=== PATIENT | male | born 1955 | race Caucasian/White ===

== ENCOUNTER 2019-01-11 16:45 | Inpatient (IN) | payer OTHER ==
[~2019-01-11] VITALS: Ht 172.7 cm; Wt 86.8 kg
--- NOTE | 2019-01-11 18:08 | ERD ---
ER Documentation Chief Complaint Chief Complaint left foot 4th, 5th toe diabetic ulcers/gangrene for admission ROS All systems reviewed and are negative except as per history of present illness. Medications Home Meds Unable to Obtain Active Prescriptions or Reported Meds Allergies Allergies: Coded Allergies: No Known Allergy (Unverified , 07/21/14) PMhx/Soc History of Surgery: No Hx Neurological Disorder: No Hx Respiratory Disorders: No Hx Cardiac Disorders: Yes (htn, DM) Hx Alcohol Use: Yes (daily) Hx Substance Use: No Hx Tobacco Use: No Physical Exam Vitals Vital Signs Date Temp Pulse Resp B/P (MAP) Pulse Ox O2 O2 Flow FiO2 Time Delivery Rate 01/11/19 99.0 87 18 141/64 99 16:50 (89) Physical Exam Const: No acute distress Head: Atraumatic Eyes: Normal Conjunctiva ENT: Normal External Ears, Nose and Mouth. Neck: Full range of motion. No meningismus. Resp: Clear to auscultation bilaterally Cardio: Regular rate and rhythm, no murmurs Abd: Soft, non tender, non distended. Normal bowel sounds Skin: No petechiae or rashes Back: No midline or flank tenderness Ext: No cyanosis, or edema Neur: Awake and alert Psych: Normal Mood and Affect YAZMIN CHAPARRO MD January 11, 2019 18:08
[2019-01-11] MEDS ORDERED: ACETAMINOPHEN 325 MG TAB PO PRN (18:30)
[2019-01-11] MEDS ORDERED: morphine 10 MG INJ IV ONE (18:30)
[2019-01-11] MEDS ORDERED: ONDANSETRON 4 MG INJ IV PRN ×3 (18:30→20:30)
[2019-01-11] MEDS ORDERED: DEXTROSE 5%-0.45% NACL 1,000 ML IV SCH (19:00)
[2019-01-11] MEDS ORDERED: ZOLPIDEM 5 MG TAB PO PRN (19:00)
--- NOTE | 2019-01-11 19:53 | ERD ---
ER Documentation Chief Complaint Chief Complaint left foot 4th, 5th toe diabetic ulcers/gangrene for admission HPI 63-year-old male with a history of peripheral arterial disease, diabetes, hypertension sent by his vascular surgeon, Dr. Gordon for admission. Patient recently had an outpatient balloon angioplasty of 1 of the arteries in his left lower extremity as he was developing gangrene in his fourth toe. He was placed on blood thinners and discharged to a nursing home facility. However the patient's symptoms have been worsening and now the lateral aspect of his foot and pinky toe are having discoloration. He is having severe uncontrolled pain despite pain medications. Currently he complains of 9 out of 10 throbbing and burning pain in his foot. No associated fevers or chills. He does have tingling in his feet but denies any weakness. He saw Dr. Gordon in the office today. He was examined and told that his angioplasty likely failed and he would need bypass surgery, per the patient's family. Of note, the patient also complains of right eye burning pain for the past few days and was told at the snf that he would be evaluated by ophthalmology. He is complaining of some blurry vision as well. No trauma to the eye. ROS All systems reviewed and are negative except as per history of present illness. Medications Home Meds Unable to Obtain Active Prescriptions or Reported Meds Allergies Allergies: Coded Allergies: No Known Allergy (Unverified , 07/21/14) PMhx/Soc History of Surgery: Yes (Left lower extremity balloon angioplasty) Anesthesia Reaction: No Hx Neurological Disorder: No Hx Respiratory Disorders: No Hx Cardiac Disorders: Yes (htn, peripheral arterial disease, CHF) Hx Psychiatric Problems: No Hx Miscellaneous Medical Probl: Yes (Diabetes) Hx Alcohol Use: Yes (daily) Hx Substance Use: No Hx Tobacco Use: No Smoking Status: Never smoker FmHx Family History: No diabetes Physical Exam Vitals Vital Signs Date Temp Pulse Resp B/P (MAP) Pulse Ox O2 O2 Flow FiO2 Time Delivery Rate 01/11/19 99.0 87 18 141/64 99 16:50 (89) Physical Exam Const: No acute distress Head: Atraumatic Eyes: PERRLA. EOMI. Right-sided conjunctival injection. Anterior chamber clear without hypopyon or hyphema. Limited funduscopic exam without any sign ificant abnormalities. No photophobia bilaterally. Visual marie intact bilaterally. ENT: Normal External Ears, Nose and Mouth. Neck: Full range of motion. No meningismus. Resp: Clear to auscultation bilaterally Cardio: Regular rate and rhythm, no murmurs. 2+ radial pulses bilaterally. Unable to palpate DP and PT pulses in the left lower extremity. 1+ DP and PT pulses in the right lower extremity. Abd: Soft, non tender, non distended. Normal bowel sounds Skin: No petechiae or rashes Back: No midline or flank tenderness Ext: No cyanosis. full range of motion at all joints of the lower extremities. Mild swelling, erythema, and discoloration over the lateral aspect of the left foot with gangrene of the fourth toe and discoloration of the fifth toe. Tender and warm to palpation. No ulcers noted. Right foot normal to inspection and palpation. Normal plantar and dorsiflexion bilaterally. Neur: Awake and alert Psych: Normal Mood and Affect Result Diagram: 01/12/1970201/12/19702 Results 24 hrs Current Medications Medications Dose Sig/Pradeep Start Time Status Last (Trade) Ordered Route PRN Stop Time Admin Dose Reason Admin Ondansetron 4 mg BRIDGE ORDER 01/11/19 HCl (Zofran PRN IV 18:30 Inj) NAUSEA/VOMITI 01/12/19 18:29 NG 650 mg ER BRIDGE 01/11/19 01/11/19 Acetaminophen PRN PO 18:30 21:20 (Tylenol .MILD PAIN 01/12/19 18:29 Tab) 1-3 OR TEMP Morphine 6 mg ONCE ONCE 01/11/19 DC 01/11/19 Sulfate IV 18:30 18:40 (morphine) 01/11/19 18:31 Procedures/MDM EMERGENT LABS AND DIAGNOSTIC STUDIES: Lab Results above were reviewed and interpreted by me. CBC: Mild anemia. Thrombocytosis, consistent with acute inflammatory process CMP: Hyperglycemic without evidence of acidosis. No evidence of clinically significant electrolyte abnormality, acidosis, renal failure, liver disease, or biliary obstruction 12-lead EKG was interpreted by Mary Arizmendi MD: Normal Sinus Rhythm with ventricular rate of 90 beats per minute Normal axis Normal intervals No acute ST or T wave changes suggestive of acute ischemia or STEMI. Radiology Results as interpreted by Radiology below were reviewed by Jayda Arizmendi MD: Chest x-ray shows no acute abnormality Initial Nursing notes reviewed. Previous Medical Records requested via the Electronic Health Record. EMERGENCY DEPARTMENT COURSE / MEDICAL DECISION MAKING: Patient is presenting with a left foot gangrene that is worsening. He is afebrile and hemodynamically stable. No evidence of acute limb ischemia. Patient will require admission for likely bypass surgery per his vascular surgeon. At this time there are no signs of sepsis. Accepting Care Team: Current data and ongoing care discussed. Time: Time of admission Primary Provider: Dr. Curtis Consulting: Dr. Hagan Outstanding Data: none Departure Diagnosis: Primary Impression: Gangrene of toe of left foot Additional Impression: Conjunctivitis, right eye Conjunctivitis type: acute Acute conjunctivitis type: unspecified Demond lified Codes: H10.31 - Unspecified acute conjunctivitis, right eye Condition: Serious MAXIMILIANO ARIZMENDI MD January 11, 2019 19:53
[2019-01-11] MEDS ORDERED: NACL 0.9% 3 ML SYG IV SCH (20:30)
[2019-01-11] MEDS ORDERED: DOCUSATE SODIUM 100 MG CAP PO PRN (20:30)
[2019-01-11] MEDS ORDERED: BISACODYL (EC) 5 MG TAB PO PRN (20:30)
[2019-01-11] MEDS ORDERED: HYDROmorphONE 0.5 MG/0.5 ML SYG IV PRN (20:30)
--- NOTE | 2019-01-11 20:54 | HP ---
Date/Time of Note Date/Time of Note DATE: 01/11/19 TIME: 20:54 Assessment/Plan VTE Prophylaxis SCD applied (from Nsg): Yes Pharmacological prophylaxis: heparin Lines/Catheters IV Catheter Type (from Nrsg): Mid Line Assessment/Plan Hospital Course This is a 63-year-old male who was admitted recently to the MedSurg floor who is now being transferred to the telemetry floor: #1 rapid A. fib with RVR: New onset. Patient denies a history of previous A. fib. Patient responded to Cardizem 10 mg IV. We will continue to monitor closely on telemetry. Magnesium 2 mg IV x1. Patient may need additional Cardizem boluses. Anticoagulation with heparin GTT. Will obtain an echocardiogram. TSH, electro lites in the a.m. Will consult cardiology #2 left fourth and fifth digit necrosis/gangrene: Failed balloon angioplasty. Will obtain x-rays of the left foot. Venous mapping has been ordered by Dr. Gordon, will obtain a left lower extremity arterial Doppler. Patient is scheduled tentatively for surgery on . Will obtain cardiac clearance. Obviously will need to control patient's A. fib prior to then. #3 peripheral arterial disease: We will need to confirm patient's home medications #4 diabetes mellitus: We will check hemoglobin A1c, insulin sliding scale, confirm patient's home meds #5 hypertension: Again we will need to confirm patient's home medications, #6 hyperlipidemia: Check lipid panel, confirm patient's home meds #7 normocytic anemia: We will check iron stores #8 Systolic versus diastolic CHF: Patient currently does not appear to be in exacerbation. He does though have some facial edema on chest x-ray but he is had not having any respiratory distress. We will give him a dose of Lasix. Will check an echocardiogram. Consult cardiology. #9 DVT GI prophylaxis: Heparin GTT, no GI prophylaxis indicated Further treatment strategy will be implemented as per the clinical course. Result Diagram: 01/11/19 1840 01/11/19 1840 Results 24hrs Laboratory Tests Test 01/11/19 18:40 White Blood Count 11.7 H Red Blood Count 4.69 L Hemoglobin 11.6 L Hematocrit 37.8 L Mean Corpuscular Volume 80.6 L Mean Corpuscular Hemoglobin 24.7 L Mean Corpuscular Hemoglobin Concent 30.7 L Red Cell Distribution Width 14.4 Platelet Count 477 H Mean Platelet Volume 9.0 Immature Granulocytes % 0.300 Neutrophils % 61.2 Lymphocytes % 24.7 Monocytes % 10.2 Eosinophils % 2.9 Basophils % 0.7 Nucleated Red Blood Cells % 0.0 Immature Granulocytes # 0.030 Neutrophils # 7.2 Lymphocytes # 2.9 Monocytes # 1.2 H Eosinophils # 0.3 Basophils # 0.1 Nucleated Red Blood Cells # 0.0 Prothrombin Time 15.0 H Prothrombin Time Ratio 1.2 INR International Normalized Ratio 1.17 Activated Partial Thromboplast Time 34.8 Sodium Level 140 Potassium Level 4.1 Chloride Level 99 Carbon Dioxide Level 29 Anion Gap 12 Blood Urea Nitrogen 18 Creatinine 0.86 Est Glomerular Filtrat Rate mL/min > 60 Glucose Level 152 Calcium Level 9.8 Total Bilirubin 0.4 Direct Bilirubin 0.00 Indirect Bilirubin 0.4 Aspartate Amino Transf (AST/SGOT) 31 Alanine Aminotransferase (ALT/SGPT) 29 Alkaline Phosphatase 132 H Total Protein 8.2 H Albumin 4.2 Globulin 4.00 H Albumin/Globulin Ratio 1.05 HPI/ROS Admit Date/Time Admit Date/Time Hx of Present Illness Chief complaint: Left fourth and fifth digit pain This is a 63-year-old male with a past medical history of diabetes mellitus, hypertension, hyperlipidemia, peripheral arterial disease, CHF who presented today with worsening left fourth digit and fifth digit pain and discoloration. Patient was seen by Dr. Gordon vascular surgery and was advised to come into the emergency department. Patient has a history of having a balloon angioplasty done which failed. He was advised to come in so that he could be scheduled for a bypass on . Patient does have dry gangrene of the left fourth digit. Upon my examination of the patient at the bedside he was noted to be in rapid A. fib with RVR with rates in the 150s. EKG was performed additional rapid A. fib with RVR at a rate of approximately 136. Patient at that time was complaining of severe pain in his toe. He was given Dilaudid 1 mg IV which did result in relief of his pain however he remained in A. fib. He was given 5 mg of Lopressor IV x2 without any response. Patient was subsequently transferred to telemetry where he did receive 10 mg of IV Cardizem which did result in improvement in the heart rate to less than 110. Allergies: NKDA Medications: See OCT ROS Const: As per HPI Eyes : No pain discharge or redness or change in visual acuity ENT: No pain, sore throat, congestion, congestion, dysphagia or discharge Respiratory: No shortness of breath, cough, sputum, wheezing, or pleuritic pain Cardiovascular: No chest pain, palpitation, PND, or edema GI : no change in appetite, abdominal pain, nausea, vomiting, diarrhea, constipation, or change in the color his stool Genitourinary: No dysuria, hematuria, flank pain , discharge or CVA tenderness Musculoskeletal: As per HPI Skin: No rash, bruising or hives Neuro: No headache, dizziness, syncope, seizure, focal weakness Endocrine: No polyuria, polydipsia, temperature intolerance Psych: No hallucination, depression, anxiety or suicidal ideation PMH/Family/Social Past Medical History Peripheral arterial disease, diabetes mellitus, hypertension, hyperlipidemia, CHF Medications Current Medications Ondansetron HCl (Zofran Inj) 4 mg BRIDGE ORDER PRN IV NAUSEA/VOMITING; Start 01/11/19 at 18:30; Stop 01/12/19 at 18:29 Acetaminophen (Tylenol Tab) 650 mg ER BRIDGE PRN PO .MILD PAIN 1-3 OR TEMP; Start 01/11/19 at 18:30; Stop 01/12/19 at 18:29 Morphine Sulfate (morphine) 4 mg Q3 PRN IV severe pain; Start 01/11/19 at 19:00 Ondansetron HCl (Zofran Inj) 4 mg Q4 PRN IV nausea; Start 01/11/19 at 19:00 Zolpidem Tartrate (Ambien) 5 mg HS MAY REPEAT X 1 PRN PO INSOMNIA; Start 01/11/19 at 19:00 IV Flush (NS 3 ml) 3 ml PER PROTOCOL IV ; Start 01/11/19 at 20:30 Ondansetron HCl (Zofran Inj) 4 mg Q6H PRN IV NAUSEA/VOMITING; Start 01/11/19 at 20:30 Acetaminophen (Tylenol Tab) 650 mg Q6H PRN PO .PAIN 1-3 OR TEMP; Start 01/11/19 at 20:30 Hydromorphone HCl (Dilaudid) 0.5 mg Q4H PRN IV .SEVERE PAIN 7-10; Start 01/11/19 at 20:30 Docusate Sodium (Colace) 100 mg Q12H PRN PO .CONSTIPATION; Start 01/11/19 at 20:30 Bisacodyl (Dulcolax) 5 mg DAILY PRN PO .CONSTIPATION; Start 01/11/19 at 20:30 Sodium Chloride 1,000 ml @ 75 mls/hr [id number] IV ; Start 01/12/19 at 00:00 Coded Allergies: No Known Allergy (Unverified , 07/21/14) Past Surgical History Failed balloon angioplasty left lower extremity Family History Significant Family History: no pertinent family hx Social History Alcohol Use: sober Smoking Status: Never smoker Drug Use: none Exam/Review of Systems Vital Signs Vitals Vital Signs Date Temp Pulse Resp B/P (MAP) Pulse Ox O2 O2 Flow FiO2 Time Delivery Rate 01/11/19 91 18 156/86 100 Room Air 18:42 (109) 01/11/19 99.0 16:50 Exam Exam General: Patient currently lying in bed in moderate distress from left foot fourth digit pain HEENT: Atraumatic, normocephalic. The pupils are equal, round and reactive. Extraocular motor are intact Neck: Supple with full range of motion. No rigidity or meningismus Chest: Nontender Lungs: Clear to auscultation bilaterally no crackles rales or wheezing Heart: Normal S1-S2, Regular rhythm and rate. No murmur, S3, or S4 Abdomen: Soft , nontender, nondistended , bowel sounds are present. No guarding no rebound tenderness , No masses or organomegaly. No costovertebral temporal angle mass Extremities: Normal to inspection, no edema no cyanosis Skin: Dry gangrene noted of the left fourth digit, discoloration noted at the fifth digit,, warm, Vascular: Diminished pulses of the left lower extremity, warm to touch Neurologic: Normal mental status, speech normal, cranial nerves II through XII are intact, motor and sensory are intact, Additional Comments PROCEDURE: XR Chest. CLINICAL INDICATION: Preop. Shortness of breath. Renal failure. TECHNIQUE: Frontal chest x-ray was obtained. COMPARISON: None. FINDINGS: There is cardiomegaly. Mediastinum is not widened. No hilar masses seen. There is mild central pulmonary vascular congestion. No alveolar infiltrate is seen. Linear scar or plate-like atelectasis is noted in the peripheral left mid lung field. Noted is right basilar atelectasis with small effusion. There is no pneumothorax. The osseous structures appear normal. IMPRESSION: Cardiomegaly with mild interstitial edema and small right pleural effusion. .Doc Ocampo MD, Date Time Electronically viewed and signed by .Doc Ocampo MD, on 01/11/2019 20:19 .A/ CC: MAXIMILIANO STEEL MD [id number] MARÍA BIANCHI January 11, 2019 20:54
[2019-01-11] MEDS ORDERED: METOPROLOL 5 MG INJ ONE (21:00)
[2019-01-11 22:00] VITALS: BP 138/81; PULSE 134; RESP 18
[2019-01-11 22:20] VITALS: Ht 172.7 cm; Wt 86.8 kg
[2019-01-11] MEDS ORDERED: HYDROmorphONE 0.5 MG/0.5 ML SYG IV STA (22:28)
[2019-01-11] MEDS: HYDROmorphONE 1 MG/ML SYG IV PRN (22:38)
[2019-01-11 23:14] VITALS: PULSE 114
[2019-01-11 23:25] VITALS: BP 120/63; PULSE 116; RESP 20
[2019-01-11] MEDS ORDERED: MAGNESIUM SULFATE 2 GM/50 ML 50 ML IVPB ONE (23:30)
[2019-01-11] MEDS ORDERED: HEPARIN 1000 UNITS/ML 10 ML INJ IV ONE (23:30)
[2019-01-11] MEDS ORDERED: DILTIAZEM 25 MG INJ IV ONE (23:30)
[2019-01-12] VITALS (13 sets, daily range): BP systolic 109–144; BP diastolic 55–78; PULSE 79–159; RESP 18–20
[2019-01-12] MEDS ORDERED: SOD CHLORIDE 0.9% 1,000 ML IV SCH
[2019-01-12] MEDS: HEPARIN 25000 UNITS/250 ML 250 ML IV SCH ×2 (00:26→10:48)
[2019-01-12] MEDS: morphine 4 MG/ML VIAL IV PRN ×6 (01:38→22:43)
[2019-01-12] MEDS ORDERED: DILTIAZEM 25 MG INJ IV ONE (03:30)
[2019-01-12] MEDS ORDERED: DILTIAZEM-D5W 125MG/125ML DRIP 125 ML IV SCH (05:00)
[2019-01-12] MEDS ORDERED: HEPARIN 1000 UNITS/ML 10 ML INJ IV PRN (05:30)
[2019-01-12] MEDS ORDERED: VANCOMYCIN IV PER PHARMACY XX SCH (07:30)
[2019-01-12] MEDS: PIPER-TAZO 3.375 GM IV (PMX) 100 ML IVPB SCH ×4 (08:21→23:46)
[2019-01-12] MEDS: FUROSEMIDE 20 MG INJ IV SCH (08:34)
[2019-01-12] MEDS ORDERED: VANCOMYCIN HCL 1.5 GM in SOD CHLORIDE 0.9% 250 ML IVPB SCH (09:00)
[2019-01-12] MEDS ORDERED: morphine 2 MG INJ ONE (10:01)
[2019-01-12] MEDS ORDERED: morphine 2 MG INJ IV STA (10:03)
--- NOTE | 2019-01-12 10:03 | CONS ---
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 will try to contact his primary MD to see if cultures were done and what antibiotics he had been on 2) DM his HgbA1C is elevated Consultation Date/Type/Reason Admit Date/Time Date of Consultation: January 12, 2019 Type of Consult ID Date/Time of Note DATE: 01/12/19 TIME: 09:55 Hx of Present Illness pt denies F, C, NS no N, V, SOB, CP he states he had been on IV antibiotics for the last 2 weeks I was told that he had an unsuccessful angioplasty for LLE and is now schedule to get LLE bypass He is known to have gangrene of his 4th toe and part of his 5th les pt does not know the name of the physician who prescribed the antibiotics or the name of the antibiotics He had some pain to his L foot but it is improved Past Medical History DM, peripheral arterial disease, HTN, CHF Home Meds Unable to Obtain Active Prescriptions or Reported Meds Medications Current Medications Ondansetron HCl (Zofran Inj) 4 mg BRIDGE ORDER PRN IV NAUSEA/VOMITING; Start 01/11/19 at 18:30; Stop 01/12/19 at 18:29 Acetaminophen (Tylenol Tab) 650 mg ER BRIDGE PRN PO .MILD PAIN 1-3 OR TEMP Last administered on 01/11/19at 21:20; Admin Dose 650 MG; Start 01/11/19 at 18:30; Stop 01/12/19 at 18:29 Morphine Sulfate (morphine) 4 mg Q3 PRN IV severe pain Last administered on 01/12/19at 08:10; Admin Dose 4 MG; Start 01/11/19 at 19:00 Ondansetron HCl (Zofran Inj) 4 mg Q4 PRN IV nausea; Start 01/11/19 at 19:00 IV Flush (NS 3 ml) 3 ml PER PROTOCOL IV ; Start 01/11/19 at 20:30 Ondansetron HCl (Zofran Inj) 4 mg Q6H PRN IV NAUSEA/VOMITING; Start 01/11/19 at 20:30 Acetaminophen (Tylenol Tab) 650 mg Q6H PRN PO .PAIN 1-3 OR TEMP; Start 01/11/19 at 20:30 Docusate Sodium (Colace) 100 mg Q12H PRN PO .CONSTIPATION; Start 01/11/19 at 20:30 Bisacodyl (Dulcolax) 5 mg DAILY PRN PO .CONSTIPATION; Start 01/11/19 at 20:30 Furosemide (Lasix) 20 mg DAILY IV Last administered on 01/12/19at 08:34; Admin Dose 20 MG; Start 01/12/19 at 09:00 Hydromorphone HCl (Dilaudid) 1 mg Q4H PRN IV SEVERE PAIN LEVEL 7-10 Last administered on 01/11/19at 22:38; Admin Dose 1 MG; Start 01/11/19 at 22:30 Heparin Sodium (Porcine) (Heparin (1000 Units/ml)) 4,000 unit PER PROTOCOL PRN IV aPTT<47; Start 01/12/19 at 05:30 Heparin Sodium (Porcine) 250 ml @ 9.5 mls/hr PER PROTOCOL IV Last administered on 01/12/19at 00:26; Admin Dose 9.5 MLS/HR; Start 01/11/19 at 23:30 Diltiazem HCl 125 ml @ 5 mls/hr TITRATE IV Last administered on 01/12/19at 04:57 ; Admin Dose 5 MLS/HR; Start 01/12/19 at 05:00 Vancomycin HCl (Vanco Iv Per Pharmacy) VANCOMYCIN PER PHARMACY PER PROTOCOL XX ; Start 01/12/19 at 07:30 Piperacillin Sod/ Tazobactam Sod 100 ml @ 200 mls/hr Q6 IVPB Last administered on 01/12/19at 08:21; Admin Dose 200 MLS/HR; Start 01/12/19 at 08:00 Vancomycin HCl 1.5 gm/Sodium Chloride 250 ml @ 83.333 mls/ hr ONCE IVPB Last administered on 01/12/19at 09:18; Admin Dose 83.333 MLS/HR; Start 01/12/19 at 09:00; Stop 01/12/19 at 15:00 Vancomycin HCl 250 ml @ 125 mls/hr Q12 IVPB ; Start 01/12/19 at 21:00 Allergies: Coded Allergies: No Known Allergy (Unverified , 07/21/14) Social History Alcohol Use: sober Smoking Status: Unknown if ever smoked Drug Use: none Exam/Review of Systems Exam Vitals Vital Signs Date Temp Pulse Resp B/P (MAP) Pulse Ox O2 O2 Flow FiO2 Time Delivery Rate 01/12/19 109 08:18 01/12/19 98.3 20 144/78 96 07:33 (100) 01/12/19 2.0 06:29 01/12/19 Nasal 00:30 Cannula Intake and Output 01/11/19 01/11/19 01/12/19 1515:00 23:00 07:00 IntakeIntake Total 250 ml BalanceBalance 250 ml Constitutional: alert, oriented Eyes: nl sclera ENMT: mucosa pink and moist Respiratory: clear to auscultation Cardiovascular: regular rate and rhythm Gastrointestinal: soft, non-tender Extremities: other (4th toe is necrotis without discharge, medial aspect of 5th toe is necrotic and overal a bit dusky) Results Result Diagram: 01/12/19 0701/12/19 0703 Results 24hrs Laboratory Tests Test 01/11/19 18:40 01/11/19 23:54 01/12/19 07:03 White Blood Count 11.7 H 11.0 H 10.0 Red Blood Count 4.69 L 4.61 L 4.54 L Hemoglobin 11.6 L 11.5 L 11.4 L Hematocrit 37.8 L 37.5 L 36.7 L Mean Corpuscular Volume 80.6 L 81.3 L 80.8 L Mean Corpuscular Hemoglobin 24.7 L 24.9 L 25.1 L Mean Corpuscular Hemoglobin Concent 30.7 L 30.7 L 31.1 L Red Cell Distribution Width 14.4 14.6 H 14.4 Platelet Count 477 H 458 H 442 H Mean Platelet Volume 9.0 9.4 9.4 Immature Granulocytes % 0.300 0.300 0.500 H Neutrophils % 61.2 57.4 66.1 Lymphocytes % 24.7 28.4 20.5 Monocytes % 10.2 10.4 9.0 Eosinophils % 2.9 2.8 3.1 Basophils % 0.7 0.7 0.8 Nucleated Red Blood Cells % 0.0 0.0 0.0 Immature Granulocytes # 0.030 0.030 0.050 H Neutrophils # 7.2 6.3 6.6 Lymphocytes # 2.9 3.1 H 2.0 Monocytes # 1.2 H 1.1 H 0.9 Eosinophils # 0.3 0.3 0.3 Basophils # 0.1 0.1 0.1 Nucleated Red Blood Cells # 0.0 0.0 0.0 Prothrombin Time 15.0 H 15.8 H Prothrombin Time Ratio 1.2 1.2 INR International Normalized Ratio 1.17 1.25 Activated Partial Thromboplast Time 34.8 32.5 44.5 H Sodium Level 140 138 Potassium Level 4.1 4.2 Chloride Level 99 102 Carbon Dioxide Level 29 29 Anion Gap 12 7 Blood Urea Nitrogen 18 18 Creatinine 0.86 0.81 Est Glomerular Filtrat Rate mL/min > 60 > 60 Glucose Level 152 259 #H Calcium Level 9.8 9.4 Total Bilirubin 0.4 0.3 Direct Bilirubin 0.00 0.00 Indirect Bilirubin 0.4 0.3 Aspartate Amino Transf (AST/SGOT) 31 25 Alanine Aminotransferase (ALT/SGPT) 29 26 Alkaline Phosphatase 132 H 117 Total Protein 8.2 H 7.0 # Albumin 4.2 3.5 Globulin 4.00 H 3.50 H Albumin/Globulin Ratio 1.05 1.00 Hemoglobin A1c 10.0 H Magnesium Level 1.9 Iron Level 13 L Total Iron Binding Capacity 255 Percent Iron Saturation 5 L Ferritin 137.0 Triglycerides Level 81 Cholesterol Level 80 L LDL Cholesterol, Calculated 45 HDL Cholesterol 19 L Cholesterol/HDL Ratio 4.2 Thyroid Stimulating Hormone (TSH) 1.690 Medications Medication Current Medications Ondansetron HCl (Zofran Inj) 4 mg BRIDGE ORDER PRN IV NAUSEA/VOMITING; Start 01/11/19 at 18:30; Stop 01/12/19 at 18:29 Acetaminophen (Tylenol Tab) 650 mg ER BRIDGE PRN PO .MILD PAIN 1-3 OR TEMP Last administered on 01/11/19at 21:20; Admin Dose 650 MG; Start 01/11/19 at 18:30; Stop 01/12/19 at 18:29 Morphine Sulfate (morphine) 4 mg Q3 PRN IV severe pain Last administered on 01/12/19at 08:10; Admin Dose 4 MG; Start 01/11/19 at 19:00 Ondansetron HCl (Zofran Inj) 4 mg Q4 PRN IV nausea; Start 01/11/19 at 19:00 IV Flush (NS 3 ml) 3 ml PER PROTOCOL IV ; Start 01/11/19 at 20:30 Ondansetron HCl (Zofran Inj) 4 mg Q6H PRN IV NAUSEA/VOMITING; Start 01/11/19 at 20:30 Acetaminophen (Tylenol Tab) 650 mg Q6H PRN PO .PAIN 1-3 OR TEMP; Start 01/11/19 at 20:30 Docusate Sodium (Colace) 100 mg Q12H PRN PO .CONSTIPATION; Start 01/11/19 at 20:30 Bisacodyl (Dulcolax) 5 mg DAILY PRN PO .CONSTIPATION; Start 01/11/19 at 20:30 Furosemide (Lasix) 20 mg DAILY IV Last administered on 01/12/19at 08:34; Admin Dose 20 MG; Start 01/12/19 at 09:00 Hydromorphone HCl (Dilaudid) 1 mg Q4H PRN IV SEVERE PAIN LEVEL 7-10 Last administered on 01/11/19at 22:38; Admin Dose 1 MG; Start 01/11/19 at 22:30 Heparin Sodium (Porcine) (Heparin (1000 Units/ml)) 4,000 unit PER PROTOCOL PRN IV aPTT<47; Start 01/12/19 at 05:30 Heparin Sodium (Porcine) 250 ml @ 9.5 mls/hr PER PROTOCOL IV Last administered on 01/12/19at 00:26; Admin Dose 9.5 MLS/HR; Start 01/11/19 at 23:30 Diltiazem HCl 125 ml @ 5 mls/hr TITRATE IV Last administered on 01/12/19at 04:57; Admin Dose 5 MLS/HR; Start 01/12/19 at 05:00 Vancomycin HCl (Vanco Iv Per Pharmacy) VANCOMYCIN PER PHARMACY PER PROTOCOL XX ; Start 01/12/19 at 07:30 Piperacillin Sod/ Tazobactam Sod 100 ml @ 200 mls/hr Q6 IVPB Last administered on 01/12/19at 08:21; Admin Dose 200 MLS/HR; Start 01/12/19 at 08:00 Vancomycin HCl 1.5 gm/Sodium Chloride 250 ml @ 83.333 mls/ hr ONCE IVPB Last administered on 01/12/19at 09:18; Admin Dose 83.333 MLS/HR; Start 01/12/19 at 09:00; Stop 01/12/19 at 15:00 Vancomycin HCl 250 ml @ 125 mls/hr Q12 IVPB ; Start 01/12/19 at 21:00 PHANI MCCULLOUGH MD January 12, 2019 10:03
[2019-01-12] MEDS ORDERED: METOPROLOL 25 MG TAB PO SCH ×2 (10:30→14:00)
[2019-01-12] MEDS ORDERED: GLUCAGON 1 MG INJ IM PRN (11:00)
[2019-01-12] MEDS ORDERED: DEXTROSE 50% 50 ML SYRINGE IV PRN ×2 (11:00)
[2019-01-12] MEDS ORDERED: GLUCOSE GEL 15 GRAM TUBE PO PRN ×2 (11:00)
[2019-01-12] MEDS ORDERED: GLUCOSE GEL 15 GRAM TUBE BUCCAL PRN (11:00)
[2019-01-12] MEDS ORDERED: MAGNESIUM SULFATE 1 GM/D5W 100 ML IVPB ONE (11:00)
--- NOTE | 2019-01-12 11:27 | PN ---
Date/Time of Note Date/Time of Note DATE: 01/12/19 TIME: 10:13 Assessment/Plan VTE Prophylaxis SCD applied (from Nsg): Yes Pharmacological prophylaxis: heparin Lines/Catheters IV Catheter Type (from Nrsg): Saline Lock Assessment/Plan Hospital Course I maging : - Foot x-ray, chest x-ray, lower extremity venous Dopplers are reviewed. - Chest x-ray shows cardiomegaly with mild interstitial edema and a small right pleural effusion Assessment and plan: 63-year-old male who was sent to the emergency room from the vascular surgeon's office because of severe left fourth and fifth digit pain. Patient has no known severe peripheral arterial disease with gangrene of the left fourth digit. He has had angioplasty in the past which is reported to have failed. Patient was found to be in A. fib RVR upon arrival to the emergency room and is admitted and managed as follows: 1. Severe peripheral arterial disease with left forefoot dry gangrene and impending gangrene of left fifth digit as well 2. Severe left lower extremity pain secondary to #1 3. Atrial fibrillation with rapid ventricular response, new diagnosis? 4. Chronic hypochromic anemia: Stable, secondary to iron deficiency 5. Dyslipidemia with a low HDL 6. Poorly controlled diabetes mellitus with hemoglobin A1c of 10 7. Radiographic evidence of fluid overload rule out CHF Plan: - Continue inpatient management and supportive care - First we will have to get patient comfortable from pain standpoint. We will add oral long-acting morphine to use as needed medications - Begin oral AV edmond blockers and wean off Cardizem drip - Get a BNP as well as 2D echo, cardiology consultation has also been obtained for cardiac clearance and to assist in management - It is my understanding that patient is scheduled tentatively set for some kind of vascular surgery on by Dr. Ricardo, will confirm. - Try to call from home hypoglycemic regimen but in the interim start patient on long-acting and pre-meal insulin therapy - Patient maintained on a heparin drip for anticoagulation, will keep this going for now as patient is planned for surgery in the near future - Begin iron supplementation - Ensure a good bowel regimen as patient is going to be on narcotic therapy - Further interventions per clinical course - Plan of care discussed extensively with the patient and his son . Patient was also treated acutely for pain with 1 dose of intravenous morphine with improved relief. Result Diagram: 01/12/19 0703 01/12/19 0703 Results 24hrs Laboratory Tests Test 01/11/19 18:40 01/11/19 23:54 01/12/19 07:03 White Blood Count 11.7 H 11.0 H 10.0 Red Blood Count 4.69 L 4.61 L 4.54 L Hemoglobin 11.6 L 11.5 L 11.4 L Hematocrit 37.8 L 37.5 L 36.7 L Mean Corpuscular Volume 80.6 L 81.3 L 80.8 L Mean Corpuscular Hemoglobin 24.7 L 24.9 L 25.1 L Mean Corpuscular Hemoglobin Concent 30.7 L 30.7 L 31.1 L Red Cell Distribution Width 14.4 14.6 H 14.4 Platelet Count 477 H 458 H 442 H Mean Platelet Volume 9.0 9.4 9.4 Immature Granulocytes % 0.300 0.300 0.500 H Neutrophils % 61.2 57.4 66.1 Lymphocytes % 24.7 28.4 20.5 Monocytes % 10.2 10.4 9.0 Eosinophils % 2.9 2.8 3.1 Basophils % 0.7 0.7 0.8 Nucleated Red Blood Cells % 0.0 0.0 0.0 Immature Granulocytes # 0.030 0.030 0.050 H Neutrophils # 7.2 6.3 6.6 Lymphocytes # 2.9 3.1 H 2.0 Monocytes # 1.2 H 1.1 H 0.9 Eosinophils # 0.3 0.3 0.3 Basophils # 0.1 0.1 0.1 Nucleated Red Blood Cells # 0.0 0.0 0.0 Prothrombin Time 15.0 H 15.8 H Prothrombin Time Ratio 1.2 1.2 INR International Normalized Ratio 1.17 1.25 Activated Partial Thromboplast Time 34.8 32.5 44.5 H Sodium Level 140 138 Potassium Level 4.1 4.2 Chloride Level 99 102 Carbon Dioxide Level 29 29 Anion Gap 12 7 Blood Urea Nitrogen 18 18 Creatinine 0.86 0.81 Est Glomerular Filtrat Rate mL/min > 60 > 60 Glucose Level 152 259 #H Calcium Level 9.8 9.4 Total Bilirubin 0.4 0.3 Direct Bilirubin 0.00 0.00 Indirect Bilirubin 0.4 0.3 Aspartate Amino Transf (AST/SGOT) 31 25 Alanine Aminotransferase (ALT/SGPT) 29 26 Alkaline Phosphatase 132 H 117 Total Protein 8.2 H 7.0 # Albumin 4.2 3.5 Globulin 4.00 H 3.50 H Albumin/Globulin Ratio 1.05 1.00 Hemoglobin A1c 10.0 H Magnesium Level 1.9 Iron Level 13 L Total Iron Binding Capacity 255 Percent Iron Saturation 5 L Ferritin 137.0 Triglycerides Level 81 Cholesterol Level 80 L LDL Cholesterol, Calculated 45 HDL Cholesterol 19 L Cholesterol/HDL Ratio 4.2 Thyroid Stimulating Hormone (TSH) 1.690 Subjective 24 Hr Interval Summary Free Text/Dictation patient is in a lot of pain despite receiving 4mg of morphine about 2 hours earlier Exam/Review of Systems Exam Vitals Vital Signs Date Temp Pulse Resp B/P (MAP) Pulse Ox O2 O2 Flow FiO2 Time Delivery Rate 01/12/19 109 08:18 01/12/19 98.3 20 144/78 96 07:33 (100) 01/12/19 2.0 06:29 01/12/19 Nasal 00:30 Cannula Intake and Output 01/11/19 01/11/19 01/12/19 1515:00 23:00 07:00 IntakeIntake Total 250 ml BalanceBalance 250 ml Exam General: A&O x3, answering questions appropriately, in a lot of pain HEENT: NC/ AT. PERRL. EOM intact Neck: supple CVS: S1, S2, irregularly irregular, no murmurs. no pain on chest wall palpation Lungs: CTA b/l. no wheezing or rhonchi Abd: soft, nontender, +BS Ext: moving all extremities, L foot bandaged, pictures in the chart review, patient with dry gangrene left fourth toe, and cyanotic and erythematous left fifth toe without any open ulcers Results Results 24hrs Laboratory Tests Test 01/11/19 18:40 01/11/19 23:54 01/12/19 07:03 White Blood Count 11.7 H 11.0 H 10.0 Red Blood Count 4.69 L 4.61 L 4.54 L Hemoglobin 11.6 L 11.5 L 11.4 L Hematocrit 37.8 L 37.5 L 36.7 L Mean Corpuscular Volume 80.6 L 81.3 L 80.8 L Mean Corpuscular Hemoglobin 24.7 L 24.9 L 25.1 L Mean Corpuscular Hemoglobin Concent 30.7 L 30.7 L 31.1 L Red Cell Distribution Width 14.4 14.6 H 14.4 Platelet Count 477 H 458 H 442 H Mean Platelet Volume 9.0 9.4 9.4 Immature Granulocytes % 0.300 0.300 0.500 H Neutrophils % 61.2 57.4 66.1 Lymphocytes % 24.7 28.4 20.5 Monocytes % 10.2 10.4 9.0 Eosinophils % 2.9 2.8 3.1 Basophils % 0.7 0.7 0.8 Nucleated Red Blood Cells % 0.0 0.0 0.0 Immature Granulocytes # 0.030 0.030 0.050 H Neutrophils # 7.2 6.3 6.6 Lymphocytes # 2.9 3.1 H 2.0 Monocytes # 1.2 H 1.1 H 0.9 Eosinophils # 0.3 0.3 0.3 Basophils # 0.1 0.1 0.1 Nucleated Red Blood Cells # 0.0 0.0 0.0 Prothrombin Time 15.0 H 15.8 H Prothrombin Time Ratio 1.2 1.2 INR International Normalized Ratio 1.17 1.25 Activated Partial Thromboplast Time 34.8 32.5 44.5 H Sodium Level 140 138 Potassium Level 4.1 4.2 Chloride Level 99 102 Carbon Dioxide Level 29 29 Anion Gap 12 7 Blood Urea Nitrogen 18 18 Creatinine 0.86 0.81 Est Glomerular Filtrat Rate mL/min > 60 > 60 Glucose Level 152 259 #H Calcium Level 9.8 9.4 Total Bilirubin 0.4 0.3 Direct Bilirubin 0.00 0.00 Indirect Bilirubin 0.4 0.3 Aspartate Amino Transf (AST/SGOT) 31 25 Alanine Aminotransferase (ALT/SGPT) 29 26 Alkaline Phosphatase 132 H 117 Total Protein 8.2 H 7.0 # Albumin 4.2 3.5 Globulin 4.00 H 3.50 H Albumin/Globulin Ratio 1.05 1.00 Hemoglobin A1c 10.0 H Magnesium Level 1.9 Iron Level 13 L Total Iron Binding Capacity 255 Percent Iron Saturation 5 L Ferritin 137.0 Triglycerides Level 81 Cholesterol Level 80 L LDL Cholesterol, Calculated 45 HDL Cholesterol 19 L Cholesterol/HDL Ratio 4.2 Thyroid Stimulating Hormone (TSH) 1.690 Medications Medication Current Medications Ondansetron HCl (Zofran Inj) 4 mg BRIDGE ORDER PRN IV NAUSEA/VOMITING; Start 01/11/19 at 18:30; Stop 01/12/19 at 18:29 Acetaminophen (Tylenol Tab) 650 mg ER BRIDGE PRN PO .MILD PAIN 1-3 OR TEMP Last administered on 01/11/19at 21:20; Admin Dose 650 MG; Start 01/11/19 at 18:30; Stop 01/12/19 at 18:29 Morphine Sulfate (morphine) 4 mg Q3 PRN IV severe pain Last administered on 01/12/19at 08:10; Admin Dose 4 MG; Start 01/11/19 at 19:00 Ondansetron HCl (Zofran Inj) 4 mg Q4 PRN IV nausea; Start 01/11/19 at 19:00 IV Flush (NS 3 ml) 3 ml PER PROTOCOL IV ; Start 01/11/19 at 20:30 Ondansetron HCl (Zofran Inj) 4 mg Q6H PRN IV NAUSEA/VOMITING; Start 01/11/19 at 20:30 Acetaminophen (Tylenol Tab) 650 mg Q6H PRN PO .PAIN 1-3 OR TEMP; Start 01/11/19 at 20:30 Docusate Sodium (Colace) 100 mg Q12H PRN PO .CONSTIPATION; Start 01/11/19 at 20:30 Bisacodyl (Dulcolax) 5 mg DAILY PRN PO .CONSTIPATION; Start 01/11/19 at 20:30 Furosemide (Lasix) 20 mg DAILY IV Last administered on 01/12/19at 08:34; Admin Dose 20 MG; Start 01/12/19 at 09:00 Hydromorphone HCl (Dilaudid) 1 mg Q4H PRN IV SEVERE PAIN LEVEL 7-10 Last administered on 01/11/19at 22:38; Admin Dose 1 MG; Start 01/11/19 at 22:30 Heparin Sodium (Porcine) (Heparin (1000 Units/ml)) 4,000 unit PER PROTOCOL PRN IV aPTT<47; Start 01/12/19 at 05:30 Heparin Sodium (Porcine) 250 ml @ 9.5 mls/hr PER PROTOCOL IV Last administered on 01/12/19at 00:26; Admin Dose 9.5 MLS/HR; Start 01/11/19 at 23:30 Diltiazem HCl 125 ml @ 5 mls/hr TITRATE IV Last administered on 01/12/19at 04:57; Admin Dose 5 MLS/HR; Start 01/12/19 at 05:00 Vancomycin HCl (Vanco Iv Per Pharmacy) VANCOMYCIN PER PHARMACY PER PROTOCOL XX ; Start 01/12/19 at 07:30 Piperacillin Sod/ Tazobactam Sod 100 ml @ 200 mls/hr Q6 IVPB Last administered on 01/12/19at 08:21; Admin Dose 200 MLS/HR; Start 01/12/19 at 08:00 Vancomycin HCl 1.5 gm/Sodium Chloride 250 ml @ 83.333 mls/ hr ONCE IVPB Last administered on 01/12/19at 09:18; Admin Dose 83.333 MLS/HR; Start 01/12/19 at 09:00; Stop 01/12/19 at 15:00 Vancomycin HCl 250 ml @ 125 mls/hr Q12 IVPB ; Start 01/12/19 at 21:00 BERKLEY MENDEZ January 12, 2019 10:24
--- NOTE | 2019-01-12 11:29 | CONS ---
DATE OF ADMISSION: 01/11/2019 DATE OF CONSULTATION: 01/12/2019 REASON FOR CONSULTATION: Left foot gangrene REFERRING PHYSICIAN: Dr. Bianchi. HISTORY OF PRESENT ILLNESS: This is a 63-year-old gentleman with known infection to the left 4th toe . He has seen Dr. Gordon as an outpatient. He has been recommended a left lower extremity bypass and has a pending cardiac workup. He has new onset atrial fibrillation. PAST MEDICAL HISTORY: Includes acute onset rapid atrial fibrillation with RVR, peripheral arterial d isease, diabetes type 2 with peripheral neuropathy, hypertension, hyperlipidemia, normocytic anemia, CHF. ALLERGIES: NONE. MEDICATIONS: Includes vancomycin and Zosyn. SOCIAL HISTORY: Denies any tobacco use. PHYSICAL EXAMINATION: VITAL SIGNS: Temperature is 98.3, pulse is 100, respiratory rate is 20, blood pressure is 144/78, pu lse ox is 96%. GENERAL: The patient is awake, alert x4, eating. Regular respirations. EXTREMITIES: Has nonpalpable pedal pulses. Left fourth toe with gangrene to the level of the metata rsophalangeal joint. Dry. No malodor. There is pain with palpation. The left fifth toe has questi onable viability. The skin is starting to shrivel. No heel decubitus. Has 5/5 dorsiflexion, planta rflexion, has diminished protective sensation to the plantar foot. X-rays, no fracture, subluxation, soft tissue loss at the fourth digit. Chest x-ray: Cardiomegaly w ith interstitial edema and right small pleural effusion. Venous mapping left great saphenous vein ra nges from 3.9 to 1.6 mm to the level of the knee and 2.1 proximal calf to 2 mm at the distal calf. LABORATORIES: WBC 10, hemoglobin 11.4, hematocrit 36.7, platelets 442. Sodium 138, potassium 4.2, c hloride 102, CO2 29, BUN 18, creatinine is 0.8. ASSESSMENT: 1. Left foot gangrene. 2. Peripheral arterial disease. Will be requiring left lower extremity open bypass. 3. Diabetes with peripheral neuropathy. 4. Normocytic anemia. 5. Rapid atrial fibrillation, new onset with RVR. PLAN: Patient seen and evaluated. We will need foot surgery to follow, revascularization can coordi caren to perform simultaneous. The patient is pending a cardiac workup. The patient currently is on vancomycin and Zosyn. Nursing recommendations given for topical antiseptic precautions. Monitor for any pressure sores. Recommend use of heel cushions. The patient education provided. Prognosis gua rded for the left fifth toe. Further recommendations pending. Dictated By: NORMAN IVORY DPM RB/VIRGIE Conf#: [id number] DID#: [id number] CC: YAZMIN PARKER DO; MARÍA BIANCHI MD;*EndCC*
[2019-01-12] MEDS: DOCUSATE SODIUM 250 MG CAP PO SCH (11:51)
[2019-01-12] MEDS: morphine (ER) 15 MG TAB PO SCH ×2 (11:56→21:31)
[2019-01-12] MEDS ORDERED: AMIODARONE 150MG/D5W BOLUS 100 ML IV ONE (12:00)
[2019-01-12] MEDS ORDERED: AMIODARONE 900 MG in DEXTROSE 5% 482 ML IV SCH (12:00)
[2019-01-12] MEDS: INSULIN ASPART [NOVOLOG] 3 ML PEN SC SCH ×5 (12:13→20:25)
--- NOTE | 2019-01-12 12:13 | CONS ---
Assessment/Plan Assessment/Plan Hospital Course (Demo Recall) New onset atrial fibrillation with rapid ventricular rates, heart rate improved Critical limb ischemia with gangrene pending surgical revascularization Diabetes, uncontrolled Hypertension Dyslipidemia Peripheral arterial disease -Patient was sent to emergency room by vascular surgery secondary to nonhealing ulcer and plans for peripheral lower extremity bypass. In the emergency room, patient with new onset atrial ablation with rapid ventricular rates. -His heart rates have since improved. Given this is new onset and patient has been put on anticoagulation, I would start amiodarone for attempts of reverting back to sinus rhythm. -Given his multiple risk factors, I will check an echocardiogram as well as cardiac enzymes to rule out ischemia as a possible etiology of his atrial fibri llation. -Increased dose of beta-timmy, continue statin therapy Consultation Date/Type/Reason Admit Date/Time Type of Consult Cardiology Reason for Consultation Atrial fibrillation Date/Time of Note DATE: 01/12/19 TIME: 12:00 Hx of Present Illness This is a 63-year-old male with past history of peripheral arterial disease, diabetes, hypertension who was admitted secondary to gangrene of his foot and for lower extremity peripheral bypass. Patient did have a recent endovascular intervention with angioplasty but the wound is still not healing and is planned for further surgical measures. Initially in the emergency room, patient was sinus rhythm but then new onset of atrial fibrillation with rapid ventricular rates. Denies symptoms of chest pain, shortness of breath or palpitations. He does complain of foot pain. Prior to this ulceration in his foot, patient was ambulatory. He tells me up to 3 months ago, he was able to go swimming, could climb at least 2 flights of stairs without exertional chest pain or shortness of breath. 12 point review of systems was performed with all pertinent positives and negatives mentioned above and all else is negative Past Medical History Peripheral arterial disease Medical History: congestive heart failure, diabetes, high cholesterol, hypertension Home Meds Unable to Obtain Active Prescriptions or Reported Meds Medications Current Medications Ondansetron HCl (Zofran Inj) 4 mg BRIDGE ORDER PRN IV NAUSEA/VOMITING; Start 01/11/19 at 18:30; Stop 01/12/19 at 18:29 Acetaminophen (Tylenol Tab) 650 mg ER BRIDGE PRN PO .MILD PAIN 1-3 OR TEMP Last administered on 01/11/19at 21:20; Admin Dose 650 MG; Start 01/11/19 at 18:30; Stop 01/12/19 at 18:29 Morphine Sulfate (morphine) 4 mg Q3 PRN IV severe pain Last administered on 01/12/19at 08:10; Admin Dose 4 MG; Start 01/11/19 at 19:00 Ondansetron HCl (Zofran Inj) 4 mg Q4 PRN IV nausea; Start 01/11/19 at 19:00 IV Flush (NS 3 ml) 3 ml PER PROTOCOL IV ; Start 01/11/19 at 20:30 Ondansetron HCl (Zofran Inj) 4 mg Q6H PRN IV NAUSEA/VOMITING; Start 01/11/19 at 20:30 Acetaminophen (Tylenol Tab) 650 mg Q6H PRN PO .PAIN 1-3 OR TEMP; Start 01/11/19 at 20:30 Docusate Sodium (Colace) 100 mg Q12H PRN PO .CONSTIPATION; Start 01/11/19 at 20:30 Bisacodyl (Dulcolax) 5 mg DAILY PRN PO .CONSTIPATION; Start 01/11/19 at 20:30 Furosemide (Lasix) 20 mg DAILY IV Last administered on 01/12/19at 08:34; Admin Dose 20 MG; Start 01/12/19 at 09:00 Hydromorphone HCl (Dilaudid) 1 mg Q4H PRN IV SEVERE PAIN LEVEL 7-10 Last administered on 01/11/19at 22:38; Admin Dose 1 MG; Start 01/11/19 at 22:30 Heparin Sodium (Porcine) (Heparin (1000 Units/ml)) 4,000 unit PER PROTOCOL PRN IV aPTT<47; Start 01/12/19 at 05:30 Heparin Sodium (Porcine) 250 ml @ 9.5 mls/hr PER PROTOCOL IV Last administered on 01/12/19at 10:48; Admin Dose 11.5 MLS/HR; Start 01/11/19 at 23:30 Diltiazem HCl 125 ml @ 5 mls/hr TITRATE IV Last administered on 01/12/19at 04:57; Admin Dose 5 MLS/HR; Start 01/12/19 at 05:00 Vancomycin HCl (Vanco Iv Per Pharmacy) VANCOMYCIN PER PHARMACY PER PROTOCOL XX ; Start 01/12/19 at 07:30 Piperacillin Sod/ Tazobactam Sod 100 ml @ 200 mls/hr Q6 IVPB Last administered on 01/12/19at 08:21; Admin Dose 200 MLS/HR; Start 01/12/19 at 08:00 Vancomycin HCl 1.5 gm/Sodium Chloride 250 ml @ 83.333 mls/ hr ONCE IVPB Last administered on 01/12/19at 09:18; Admin Dose 83.333 MLS/HR; Start 01/12/19 at 09:00; Stop 01/12/19 at 15:00 Vancomycin HCl 250 ml @ 125 mls/hr Q12 IVPB ; Start 01/12/19 at 21:00 Metoprolol Tartrate (Lopressor) 25 mg BID PO Last administered on 01/12/19at 11:51; Admin Dose 25 MG; Start 01/12/19 at 10:30 Diagnostic Test (Pha) (Accu-Chek) 1 ea 02 XX ; Start 01/13/19 at 02:00 Insulin Glargine (Lantus) 16 units DAILY@2000 SC ; Start 01/12/19 at 20:00 Insulin Aspart (Novolog Insulin Pen) 5 unit WITH MEALS SC ; Start 01/12/19 at 12:00 Insulin Aspart (Novolog Insulin Pen) NOVOLOG *MILD* ALGORITHM WITH MEALS BEDTIME SC ; Start 01/12/19 at 12:00 Ferric Sodium Gluconate Complex 125 mg/Sodium Chloride 110 ml @ 110 mls/hr DAILY@1300 IVPB ; Start 01/12/19 at 13:00; Stop 01/16/19 at 13:59 Atorvastatin Calcium (Lipitor) 20 mg HS PO ; Start 01/12/19 at 21:00 Morphine Sulfate (Ms Contin (Er)) 15 mg BID PO Last administered on 01/12/19at 11:56; Admin Dose 15 MG; Start 01/12/19 at 11:00 Docusate Sodium (Colace) 250 mg DAILY PO Last administered on 01/12/19at 11:51; Admin Dose 250 MG; Start 01/12/19 at 11:00 Miscellaneous Information 1 ea NOTE XX ; Start 01/12/19 at 11:00 Glucose (Glutose) 15 gm Q15M PRN PO DECREASED GLUCOSE; Start 01/12/19 at 11:00 Glucose (Glutose) 22.5 gm Q15M PRN PO DECREASED GLUCOSE; Start 01/12/19 at 11:00 Dextrose (D50w Syringe) 25 ml Q15M PRN IV DECREASED GLUCOSE; Start 01/12/19 at 11:00 Dextrose (D50w Syringe) 50 ml Q15M PRN IV DECREASED GLUCOSE; Start 01/12/19 at 11:00 Glucagon (Glucagen) 1 mg Q15M PRN IM DECREASED GLUCOSE; Start 01/12/19 at 11:00 Glucose (Glutose) 15 gm Q15M PRN BUCCAL DECREASED GLUCOSE; Start 01/12/19 at 11:00 Amiodarone HCl 100 ml @ 600 mls/hr ONCE ONCE IV ; Start 01/12/19 at 12:00; Stop 01/12/19 at 12:09; Status UNV Amiodarone HCl 900 mg/Dextrose 500 ml @ 0 mls/hr Q0M IV ; Start 01/12/19 at 12:00; Status UNV Allergies: Coded Allergies: No Known Allergy (Unverified , 07/21/14) Past Surgical History Past Surgical Hx: other (Including but not limited to peripheral endovascular intervention) Social History Alcohol Use: sober Smoking Status: Unknown if ever smoked Drug Use: none Exam/Review of Systems Vital Signs Vitals Vital Signs Date Temp Pulse Resp B/P (MAP) Pulse Ox O2 O2 Flow FiO2 Time Delivery Rate 01/12/19 98.7 101 20 139/63 98 11:41 (88) 01/12/19 Nasal 2.0 08:00 Cannula Intake and Output 01/11/19 01/11/19 01/12/19 1515:00 23:00 07:00 IntakeIntake Total 250 ml BalanceBalance 250 ml Exam Constitutional: alert, oriented (No apparent distress) Head: normocephalic Respiratory: other (Coarse breath sound bilaterally, no wheezing) Cardiovascular: regular rate and rhythm (S1-S2 heard) Gastrointestinal: soft, non-tender, bowel sounds Extremities: other (Bandage lower extremity, trace edema) Labs Result Diagram: 01/12/19 0701/12/19 07 Results 24hrs Laboratory Tests Test 01/11/19 18:40 01/11/19 23:54 01/12/19 07:03 White Blood Count 11.7 H 11.0 H 10.0 Red Blood Count 4.69 L 4.61 L 4.54 L Hemoglobin 11.6 L 11.5 L 11.4 L Hematocrit 37.8 L 37.5 L 36.7 L Mean Corpuscular Volume 80.6 L 81.3 L 80.8 L Mean Corpuscular Hemoglobin 24.7 L 24.9 L 25.1 L Mean Corpuscular Hemoglobin Concent 30.7 L 30.7 L 31.1 L Red Cell Distribution Width 14.4 14.6 H 14.4 Platelet Count 477 H 458 H 442 H Mean Platelet Volume 9.0 9.4 9.4 Immature Granulocytes % 0.300 0.300 0.500 H Neutrophils % 61.2 57.4 66.1 Lymphocytes % 24.7 28.4 20.5 Monocytes % 10.2 10.4 9.0 Eosinophils % 2.9 2.8 3.1 Basophils % 0.7 0.7 0.8 Nucleated Red Blood Cells % 0.0 0.0 0.0 Immature Granulocytes # 0.030 0.030 0.050 H Neutrophils # 7.2 6.3 6.6 Lymphocytes # 2.9 3.1 H 2.0 Monocytes # 1.2 H 1.1 H 0.9 Eosinophils # 0.3 0.3 0.3 Basophils # 0.1 0.1 0.1 Nucleated Red Blood Cells # 0.0 0.0 0.0 Prothrombin Time 15.0 H 15.8 H Prothrombin Time Ratio 1.2 1.2 INR International Normalized Ratio 1.17 1.25 Activated Partial Thromboplast Time 34.8 32.5 44.5 H Sodium Level 140 138 Potassium Level 4.1 4.2 Chloride Level 99 102 Carbon Dioxide Level 29 29 Anion Gap 12 7 Blood Urea Nitrogen 18 18 Creatinine 0.86 0.81 Est Glomerular Filtrat Rate mL/min > 60 > 60 Glucose Level 152 259 #H Calcium Level 9.8 9.4 Total Bilirubin 0.4 0.3 Direct Bilirubin 0.00 0.00 Indirect Bilirubin 0.4 0.3 Aspartate Amino Transf (AST/SGOT) 31 25 Alanine Aminotransferase (ALT/SGPT) 29 26 Alkaline Phosphatase 132 H 117 Total Protein 8.2 H 7.0 # Albumin 4.2 3.5 Globulin 4.00 H 3.50 H Albumin/Globulin Ratio 1.05 1.00 Hemoglobin A1c 10.0 H Magnesium Level 1.9 Iron Level 13 L Total Iron Binding Capacity 255 Percent Iron Saturation 5 L Ferritin 137.0 B-Type Natriuretic Peptide 619 H Triglycerides Level 81 Cholesterol Level 80 L LDL Cholesterol, Calculated 45 HDL Cholesterol 19 L Cholesterol/HDL Ratio 4.2 Thyroid Stimulating Hormone (TSH) 1.690 Imaging Imaging ECG performed yesterday at 1854 demonstrates sinus rhythm at 90 bpm, QRS 78 ms, nonspecific ST abnormalities ECG performed at 10:47 PM with atrial fibrillation with rapid ventricular rates in the 130s, QRS 85 ms, nonspecific ST abnormalities Medications Medications Current Medications Ondansetron HCl (Zofran Inj) 4 mg BRIDGE ORDER PRN IV NAUSEA/VOMITING; Start 01/11/19 at 18:30; Stop 01/12/19 at 18:29 Acetaminophen (Tylenol Tab) 650 mg ER BRIDGE PRN PO .MILD PAIN 1-3 OR TEMP Last administered on 01/11/19at 21:20; Admin Dose 650 MG; Start 01/11/19 at 18:30; Stop 01/12/19 at 18:29 Morphine Sulfate (morphine) 4 mg Q3 PRN IV severe pain Last administered on 01/12/19at 08:10; Admin Dose 4 MG; Start 01/11/19 at 19:00 Ondansetron HCl (Zofran Inj) 4 mg Q4 PRN IV nausea; Start 01/11/19 at 19:00 IV Flush (NS 3 ml) 3 ml PER PROTOCOL IV ; Start 01/11/19 at 20:30 Ondansetron HCl (Zofran Inj) 4 mg Q6H PRN IV NAUSEA/VOMITING; Start 01/11/19 at 20:30 Acetaminophen (Tylenol Tab) 650 mg Q6H PRN PO .PAIN 1-3 OR TEMP; Start 01/11/19 at 20:30 Docusate Sodium (Colace) 100 mg Q12H PRN PO .CONSTIPATION; Start 01/11/19 at 20 :30 Bisacodyl (Dulcolax) 5 mg DAILY PRN PO .CONSTIPATION; Start 01/11/19 at 20:30 Furosemide (Lasix) 20 mg DAILY IV Last administered on 01/12/19at 08:34; Admin Dose 20 MG; Start 01/12/19 at 09:00 Hydromorphone HCl (Dilaudid) 1 mg Q4H PRN IV SEVERE PAIN LEVEL 7-10 Last administered on 01/11/19at 22:38; Admin Dose 1 MG; Start 01/11/19 at 22:30 Heparin Sodium (Porcine) (Heparin (1000 Units/ml)) 4,000 unit PER PROTOCOL PRN IV aPTT<47; Start 01/12/19 at 05:30 Heparin Sodium (Porcine) 250 ml @ 9.5 mls/hr PER PROTOCOL IV Last administered on 01/12/19at 10:48; Admin Dose 11.5 MLS/HR; Start 01/11/19 at 23:30 Diltiazem HCl 125 ml @ 5 mls/hr TITRATE IV Last administered on 01/12/19at 04:57; Admin Dose 5 MLS/HR; Start 01/12/19 at 05:00 Vancomycin HCl (Vanco Iv Per Pharmacy) VANCOMYCIN PER PHARMACY PER PROTOCOL XX ; Start 01/12/19 at 07:30 Piperacillin Sod/ Tazobactam Sod 100 ml @ 200 mls/hr Q6 IVPB Last administered on 01/12/19at 08:21; Admin Dose 200 MLS/HR; Start 01/12/19 at 08:00 Vancomycin HCl 1.5 gm/Sodium Chloride 250 ml @ 83.333 mls/ hr ONCE IVPB Last administered on 01/12/19at 09:18; Admin Dose 83.333 MLS/HR; Start 01/12/19 at 09:00; Stop 01/12/19 at 15:00 Vancomycin HCl 250 ml @ 125 mls/hr Q12 IVPB ; Start 01/12/19 at 21:00 Metoprolol Tartrate (Lopressor) 25 mg BID PO Last administered on 01/12/19at 11:51; Admin Dose 25 MG; Start 01/12/19 at 10:30 Diagnostic Test (Pha) (Accu-Chek) XX ; Start 01/13/19 at 02:00 Insulin Glargine (Lantus) 16 units DAILY@2000 SC ; Start 01/12/19 at 20:00 Insulin Aspart (Novolog Insulin Pen) 5 unit WITH MEALS SC ; Start 01/12/19 at 12:00 Insulin Aspart (Novolog Insulin Pen) NOVOLOG *MILD* ALGORITHM WITH MEALS BEDTIME SC ; Start 01/12/19 at 12:00 Ferric Sodium Gluconate Complex 125 mg/Sodium Chloride 110 ml @ 110 mls/hr DAILY@1300 IVPB ; Start 01/12/19 at 13:00; Stop 01/16/19 at 13:59 Atorvastatin Calcium (Lipitor) 20 mg HS PO ; Start 01/12/19 at 21:00 Morphine Sulfate (Ms Contin (Er)) 15 mg BID PO Last administered on 01/12/19at 11:56; Admin Dose 15 MG; Start 01/12/19 at 11:00 Docusate Sodium (Colace) 250 mg DAILY PO Last administered on 01/12/19at 11:51; Admin Dose 250 MG; Start 01/12/19 at 11:00 Miscellaneous Information 1 ea NOTE XX ; Start 01/12/19 at 11:00 Glucose (Glutose) 15 gm Q15M PRN PO DECREASED GLUCOSE; Start 01/12/19 at 11:00 Glucose (Glutose) 22.5 gm Q15M PRN PO DECREASED GLUCOSE; Start 01/12/19 at 11: 00 Dextrose (D50w Syringe) 25 ml Q15M PRN IV DECREASED GLUCOSE; Start 01/12/19 at 11:00 Dextrose (D50w Syringe) 50 ml Q15M PRN IV DECREASED GLUCOSE; Start 01/12/19 at 11:00 Glucagon (Glucagen) 1 mg Q15M PRN IM DECREASED GLUCOSE; Start 01/12/19 at 11:00 Glucose (Glutose) 15 gm Q15M PRN BUCCAL DECREASED GLUCOSE; Start 01/12/19 at 11:00 Amiodarone HCl 100 ml @ 600 mls/hr ONCE ONCE IV ; Start 01/12/19 at 12:00; Stop 01/12/19 at 12:09; Status UNV Amiodarone HCl 900 mg/Dextrose 500 ml @ 0 mls/hr Q0M IV ; Start 01/12/19 at 12:00; Status UNV Buddy Otto DO January 12, 2019 12:10
[2019-01-12] MEDS: SOD FERRIC GLUC COMPLX 125 MG in SOD CHLORIDE 0.9% 100 ML IVPB SCH (14:25)
[2019-01-12] MEDS: METOPROLOL 50 MG TAB PO SCH ×2 (14:43→21:31)
--- NOTE | 2019-01-12 14:47 | CONS ---
DATE OF ADMISSION: 01/11/2019 DATE OF CONSULTATION: 01/12/2019 TYPE OF CONSULTATION: Vascular. REASON FOR CONSULTATION: Left 4th and 5th toe gangrene and rest pain. HISTORY OF PRESENT ILLNESS: This is a 63-year-old diabetic hypertensive gentleman. He is well known to me. I did an angiogram of his left lower extremity about 10 days ago for a 4th toe gangrene. He had at the time very distal subtotal occlusions of the posterior tibial and anterior tibial arteries with very little flow into the foot. The posterior tibial and common plantar and the dorsalis pedis arteries are patent, although very calcified and somewhat small. I was able to improve the flow by angioplasting distal anterior tibial but I really could not get good straight line flow down into the foot. I saw him in the office yesterday and the 4th toe is mummified but the 5th toe now turned cya notic and is beginning to become gangrenous. I recommended that he go to the emergency room and for admission and get him prepared for bypass. While in the emergency room last night, he developed some rapid AFib which is new for him. Dr. Otto has seen him and has evaluated him and get him prepared for surgery tomorrow for bypass. PAST MEDICAL HISTORY: Again is significant for diabetes poorly controlled, hypertension and congesti ve heart failure, hypercholesterolemia. He drinks fairly heavily at least what his children told me. He has no history of chest pain or [place] in the past. 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 He has been pretty active until a few months ago, had no trouble with exertional chest pain or shortness of breath. MEDICATIONS: Consist of: 1. Vancomycin. 2. Lipitor. 3. Lantus. 4. Lopressor. 5. NovoLog. 6. Amiodarone. 7. Heparin drip. 8. Morphine for pain. 9. Zosyn. 10. Lasix. ALLERGIES: THERE ARE NO KNOWN DRUG ALLERGIES. SOCIAL HISTORY: He is a nonsmoker. He does not use any illicit drugs. He does drink fairly heavily per his children's report. FAMILY HISTORY: Noncontributory. REVIEW OF SYSTEMS: He denies any symptoms other than pain in the left foot. PHYSICAL EXAMINATION: GENERAL: He is an elderly gentleman. He is in no acute distress. VITAL SIGNS: He has been afebrile. Blood pressure is 139/63, heart rate is 101, respiratory rate is 20, he is 98% sat on room air. PERIPHERAL VASCULAR: He has 2+ radial carotid and brachial pulses bilaterally. LUNGS: Clear. HEART: Regular rate and rhythm. He is now in sinus. ABDOMEN: Soft, nontender, nondistended. EXTREMITIES: He has 2+ femoral and popliteal pulses bilaterally. No DP or PT pulse in either lower extremity. The right foot is warm. There are no wounds. On the left, the 4th toe is mummified down to the base of the toe. The 5th toe has become cyanotic and looks ischemic. The 1st, 2nd and 3rd t oes have good color and there are no wounds or any signs of infection there. DIAGNOSTIC DATA: He had again arteriogram last week that showed very distal tibial disease, but ther e is a patent common plantar and dorsalis pedis. He had a vein mapping done yesterday which shows re asonably good saphenous vein in the thigh in the left leg. LABORATORY DATA: His creatinine is normal. White count is normal, platelet count is normal. BNP is little elevated, but not terribly. His troponin so far has been negative. IMPRESSION: Left foot ischemia with 4th and 5th toe gangrene. He needs a left pop to pedal bypass. I have him scheduled for tomorrow morning. I spoke to Dr. Otto unless there is something really a bnormal and his troponins or his echo, he should be cleared for the surgery, so we are going to go ah ead and I discussed at length with the patient himself and his son and they want to proceed. They un derstand without further intervention, he is going to end up losing the foot. Dictated By: NICOLAS MARROQUIN/VIRGIE Conf#: [id number] DID#: [id number] CC: YAZMIN OTTO DO; MARÍA BIANCHI MD; NORMAN IVORY DPM; BERKLEY MENDEZ MD;*EndCC*
--- NOTE | 2019-01-12 16:40 | PREAC ---
Date/Time of Note Date/Time of Note DATE: 01/12/19 TIME: 16:38 Anesthesia Eval and Record Evaluation Time Pre-Procedure Interview DATE: 01/12/19 TIME: 16:38 Age 63 Sex male NPO: 8 hrs Preoperative diagnosis Left 4th and 5th toe gangrene and rest pain. Planned procedure LEFT FEMORAL POPLITEAL BYPASS Past Medical History Past Medical History: Includes Cardio: HTN, Dyslipidemia, Arrythmia (A-FIB), CHF, Other (peripheral arterial disease) Endo: Diabetes Heme: Anemia Surgery & Anesthesia Issues No known issue Meds Anticoagulation: No Beta Wilder within 24 hr: No Reason Beta Wilder not given: Pt. not on B-Wilder Unable to Obtain Active Prescriptions or Reported Meds Current Medications Ondansetron HCl (Zofran Inj) 4 mg BRIDGE ORDER PRN IV NAUSEA/VOMITING; Start 01/11/19 at 18:30; Stop 01/12/19 at 18:29 Acetaminophen (Tylenol Tab) 650 mg ER BRIDGE PRN PO .MILD PAIN 1-3 OR TEMP Last administered on 01/11/19at 21:20; Admin Dose 650 MG; Start 01/11/19 at 18:30; Stop 01/12/19 at 18:29 Morphine Sulfate (morphine) 4 mg Q3 PRN IV severe pain Last administered on 01/12/19at 16:09; Admin Dose 4 MG; Start 01/11/19 at 19:00 Ondansetron HCl (Zofran Inj) 4 mg Q4 PRN IV nausea; Start 01/11/19 at 19:00 IV Flush (NS 3 ml) 3 ml PER PROTOCOL IV ; Start 01/11/19 at 20:30 Ondansetron HCl (Zofran Inj) 4 mg Q6H PRN IV NAUSEA/VOMITING; Start 01/11/19 at 20:30 Acetaminophen (Tylenol Tab) 650 mg Q6H PRN PO .PAIN 1-3 OR TEMP; Start 01/11/19 at 20:30 Docusate Sodium (Colace) 100 mg Q12H PRN PO .CONSTIPATION; Start 01/11/19 at 20:30 Bisacodyl (Dulcolax) 5 mg DAILY PRN PO .CONSTIPATION; Start 01/11/19 at 20:30 Furosemide (Lasix) 20 mg DAILY IV Last administered on 01/12/19at 08:34; Admin Dose 20 MG; Start 01/12/19 at 09:00 Hydromorphone HCl (Dilaudid) 1 mg Q4H PRN IV SEVERE PAIN LEVEL 7-10 Last administered on 01/11/19at 22:38; Admin Dose 1 MG; Start 01/11/19 at 22:30 Heparin Sodium (Porcine) (Heparin (1000 Units/ml)) 4,000 unit PER PROTOCOL PRN IV aPTT<47; Start 01/12/19 at 05:30 Heparin Sodium (Porcine) 250 ml @ 9.5 mls/hr PER PROTOCOL IV Last administered on 01/12/19at 10:48; Admin Dose 11.5 MLS/HR; Start 01/11/19 at 23:30 Diltiazem HCl 125 ml @ 5 mls/hr TITRATE IV Last administered on 01/12/19at 04:57; Admin Dose 5 MLS/HR; Start 01/12/19 at 05:00 Vancomycin HCl (Vanco Iv Per Pharmacy) VANCOMYCIN PER PHARMACY PER PROTOCOL XX ; Start 01/12/19 at 07:30 Piperacillin Sod/ Tazobactam Sod 100 ml @ 200 mls/hr Q6 IVPB Last administered on 01/12/19 13:14; Admin Dose 200 MLS/HR; Start 01/12/19 at 08:00 Vancomycin HCl 250 ml @ 125 mls/hr Q12 IVPB ; Start 01/12/19 at 21:00 Diagnostic Test (Pha) (Accu-Chek) 1 ea 02 XX ; Start 01/13/19 at 02:00 Insulin Glargine (Lantus) 16 units DAILY@2000 SC ; Start 01/12/19 at 20:00 Insulin Aspart (Novolog Insulin Pen) 5 unit WITH MEALS SC Last administered on 01/12/19at 12:13; Admin Dose 5 UNIT; Start 01/12/19 at 12:00 Insulin Aspart (Novolog Insulin Pen) NOVOLOG *MILD* ALGORITHM WITH MEALS BEDTIME SC Last administered on 01/12/19 12:17; Admin Dose 4 UNIT; Start 01/12/19 at 12:00 Ferric Sodium Gluconate Complex 125 mg/Sodium Chloride 110 ml @ 110 mls/hr DAILY@1300 IVPB Last administered on 01/12/19 14:25; Admin Dose 110 MLS/HR; Start 01/12/19 at 13:00; Stop 01/16/19 at 13:59 Atorvastatin Calcium (Lipitor) 20 mg HS PO ; Start 01/12/19 at 21:00 Morphine Sulfate (Ms Contin (Er)) 15 mg BID PO Last administered on 01/12/19at 11:56; Admin Dose 15 MG; Start 01/12/19 at 11:00 Docusate Sodium (Colace) 250 mg DAILY PO Last administered on 01/12/19at 11:51; Admin Dose 250 MG; Start 01/12/19 at 11:00 Miscellaneous Information 1 ea NOTE XX ; Start 01/12/19 at 11:00 Glucose (Glutose) 15 gm Q15M PRN PO DECREASED GLUCOSE; Start 01/12/19 at 11:00 Glucose (Glutose) 22.5 gm Q15M PRN PO DECREASED GLUCOSE; Start 01/12/19 at 11:00 Dextrose (D50w Syringe) 25 ml Q15M PRN IV DECREASED GLUCOSE; Start 01/12/19 at 11:00 Dextrose (D50w Syringe) 50 ml Q15M PRN IV DECREASED GLUCOSE; Start 01/12/19 at 11:00 Glucagon (Glucagen) 1 mg Q15M PRN IM DECREASED GLUCOSE; Start 01/12/19 at 11:00 Glucose (Glutose) 15 gm Q15M PRN BUCCAL DECREASED GLUCOSE; Start 01/12/19 at 11:00 Amiodarone HCl 900 mg/Dextrose 500 ml @ 0 mls/hr Q0M IV Last administered on 01/12/19at 14:22; Admin Dose 33.33 MLS/HR; Start 01/12/19 at 12:00 Atorvastatin Calcium (Lipitor) 40 mg HS PO ; Start 01/12/19 at 21:00 Metoprolol Tartrate (Lopressor) 50 mg Q8 PO Last administered on 01/12/19at 14:43; Admin Dose 50 MG; Start 01/12/19 at 14:00 Meds reviewed: Yes Allergies Coded Allergies: No Known Allergy (Unverified , 07/21/14) Allergies Reviewed: Yes Labs/Studies Labs Reviewed: Reviewed by anesthesiologist Result Diagram: 01/12/19 0703 01/12/19 0703 Laboratory Tests 01/12/19 07:03 test: N/A Studies: ECG (A-FIB), CXR (Cardiomegaly with mild interstitial edema and small right pleural effusion.) Pre-procedure Exam Last vitals Vital Signs Date Temp Pulse Resp B/P (MAP) Pulse Ox O2 O2 Flow FiO2 Time Delivery Rate 01/12/19 79 16:11 01/12/19 98.6 20 109/57 98 15:49 (74) 01/12/19 2.0 14:44 01/12/19 Nasal 08:00 Cannula Airway: Adequate mouth opening Mallampati: Mallampati II Teeth: Normal Lung: Normal Heart: Normal ASA Physical Status ASA physical status: 3 Emergency: None Planned Anesthetic General/MAC: ETT Pre-operative Attestations Prior to commencing anesthesia and surgery, the patient was re-evaluated, there was verification of: *The patient's identity *The results of appropriate recent lab work and preoperative vital signs *The above evaluation not changing prior to induction *Anesthetic plan, risk benefits, alternative and complications discussed with patient/family; questions answered; patient/family understands, accepts and wishes to proceed. JAZZMINE EDGAR January 12, 2019 16:40
[2019-01-12] MEDS ORDERED: ASC500 PO (19:31)
[2019-01-12] MEDS ORDERED: METF100010 PO (19:31)
[2019-01-12] MEDS ORDERED: THIA100T56 PO (19:31)
[2019-01-12] MEDS ORDERED: FURO-110 PO (19:31)
[2019-01-12] MEDS ORDERED: GLU5XL PO (19:31)
[2019-01-12] MEDS ORDERED: SENN-120 PO (19:31)
[2019-01-12] MEDS ORDERED: GABA-526 PO (19:31)
[2019-01-12] MEDS ORDERED: CLOP75TA27 PO (19:31)
[2019-01-12] MEDS ORDERED: LOSA100T15 PO (19:31)
[2019-01-12] MEDS ORDERED: ASPI-817 PO (19:31)
[2019-01-12] MEDS ORDERED: HYDR-3980 PO (19:31)
[2019-01-12] MEDS ORDERED: BISA-57 PO (19:31)
[2019-01-12] MEDS ORDERED: LANT3I SC (19:31)
[2019-01-12] MEDS ORDERED: PROT946L PO (19:31)
[2019-01-12] MEDS ORDERED: MINE133E23 PR (19:31)
[2019-01-12] MEDS ORDERED: ATOR20TA38 PO (19:31)
[2019-01-12] MEDS ORDERED: METO-335 PO (19:31)
[2019-01-12] MEDS ORDERED: FOLI-49 PO (19:31)
[2019-01-12] MEDS ORDERED: MULTI PO (19:31)
[2019-01-12] MEDS: ATORVASTATIN 40 MG TAB PO SCH (20:16)
[2019-01-12] MEDS: VANCOMYCIN 1 GM 250 ML IVPB SCH (20:17)
[2019-01-12] MEDS: INSULIN GLARGINE [LANTus] (100 UNITS/ML) SYG SC SCH (20:26)
--- NOTE | 2019-01-12 20:45 | RADRPT ---
Echocardiogram Report Patient Name: MIAH CONTEHPatient ID: [id number] : 1955 (63y 11m)Study Date: 01/12/2019 8:13:53 AM Gender: MAccession #: [id number] Tech: Nasreen [facility] Location: 603- Ref.Physician: MARÍA BIANCHI Height(Cm): BSA: Weight(Kg): Quality: AdequateOrder Physician: MARÍA BIANCHI Account #: Procedures: Echocardiographic Report: Transthoracic echocardiogram with complete 2D, M-Mode, and doppler examination. Indications: Pre-op. Measurements: 2D/M Mode Doppler Measurement Value Normal Range Measurement Value Normal Range LVIDd 2D 4.8 [ 4.2 - 5.8 ] cm AV Peak Dawson 1.6 [ 100.0 - 170.0 ] cm/sec LVIDs 2D 3.9 [ 2.5 - 4.0 ] cm AV Peak PG 10.0 [ 2.0 - 9.0 ] mmHg LVPWd 2D 1.2 [ 0.6 - 1.0 ] cm LVOT Peak Dawson 1.0 [ 70.0 - 110.0 ] cm/sec IVSd 2D 1.2 [ 0.6 - 1.0 ] cm LVOT Peak PG 4.0 [ 2.0 - 6.0 ] mmHg AoR Diam 2D 2.9 [ 2.6 - 3.4 ] cm MV E Peak Dawson 1.1 [ 60.0 - 130.0 ] cm/sec EDV 2D 109.0 [ 62.0 - 150.0 ] ml MV Decel Time 127 [ 104 - 258 ] msec ESV 2D 64.3 [ 21.0 - 61.0 ] ml Lat E` Dawson 0.1 [ 10.0 - 15.0 ] cm/sec EF 2D 41.0 [ 52.0 - 72.0 ] percent Lateral E/E` 8.1 [ 1.0 - 2.0 ] ratio LA Dimen 2D 3.5 [ 3.0 - 4.0 ] cm TR Peak Dawson 2.5 [ 100.0 - 280.0 ] cm/sec TR Peak PG 25.0 mmHg RVSP 28.0 [ 10.0 - 36.0 ] mmHg Findings: Left Ventricle: Lower limits of normal systolic function. Normal left ventricular cavity size. Mild concentric left ventricular hypertrophy. Ejection fraction is visually estimated at 50-55 %. Abnormal Diastolic Function. Right Ventricle: Normal right ventricular size. Normal right ventricular systolic function. Left Atrium: The left atrium is normal in size. Right Atrium: The right atrium is normal in size. Mitral Valve: Mild mitral leaflet calcification. Mild mitral annular calcification. Mild mitral valve regurgitation. Aortic Valve: No significant aortic stenosis or insufficiency. Aortic cusps appear mildly calcified. Tricuspid Valve: Normal appearance of the tricuspid valve. The estimated Peak RVSP is 28 mmHg. There is mild tricuspid regurgitation. Pericardium: Normal pericardium with no significant pericardial effusion. Aorta: Normal aortic root. IVC: Normal size and normal respiratory collapse consistent with normal right atrial pressure. Conclusions: Lower limits of normal systolic function. Normal left ventricular cavity size. Mild concentric left ventricular hypertrophy. Ejection fraction is visually estimated at 50-55 %. Abnormal Diastolic Function. Normal right ventricular size. Normal right ventricular systolic function. The left atrium is normal in size. The right atrium is normal in size. Mild mitral valve regurgitation. No significant aortic stenosis or insufficiency. There is mild tricuspid regurgitation. Normal pericardium with no significant pericardial effusion. Electronically Signed By: Buddy Otto 2019-01-12 20:44:23 PDT
[2019-01-12] MEDS ORDERED: ATORVASTATIN 20 MG TAB PO SCH (21:00)
[2019-01-13] VITALS (17 sets, daily range): BP systolic 93–150; BP diastolic 48–85; PULSE 83–137; RESP 16–26
[2019-01-13] MEDS: morphine 4 MG/ML VIAL IV PRN ×2 (02:01→05:07)
[2019-01-13] MEDS: ACCU-CHEK XX SCH (02:12)
[2019-01-13] MEDS: PIPER-TAZO 3.375 GM IV (PMX) 100 ML IVPB SCH ×4 (05:07→23:21)
[2019-01-13] MEDS: METOPROLOL 50 MG TAB PO SCH ×3 (05:07→23:22)
[2019-01-13] MEDS ORDERED: GELATIN SIZE 100 SPONGE ONE (06:54)
[2019-01-13] MEDS ORDERED: HEPARIN 1000 UNITS/ML 10 ML INJ ONE ×2 (06:55→07:08)
[2019-01-13] MEDS ORDERED: THROMBIN 5000 UNIT VIAL ONE (06:55)
[2019-01-13] MEDS ORDERED: PROPOFOL 20 ML ONE (07:08)
[2019-01-13] MEDS ORDERED: SUCCINYLCHOLINE CHLORIDE 100 MG/5 ML SYG IV ONE (07:08)
[2019-01-13] MEDS ORDERED: CEFAZOLIN 1 GM INJ ONE (07:08)
[2019-01-13] MEDS ORDERED: MIDAZOLAM 1 MG/ML 2 ML INJ ONE (07:08)
[2019-01-13] MEDS ORDERED: ROCURONIUM 50 MG INJ ONE (07:08)
--- NOTE | 2019-01-13 07:12 | HPN ---
Date/Time of Note Date/Time of Note DATE: 01/13/19 TIME: 07:12 Interval H&P Admission Note Pt. seen H&P reviewed: No system changes NICOLAS SAAB MD January 13, 2019 07:12
[2019-01-13] MEDS ORDERED: HEPARIN 1000 UNITS/ML 10 ML INJ IRR ONE (07:25)
--- NOTE | 2019-01-13 07:30 | PREAC ---
Date/Time of Note Date/Time of Note DATE: 01/13/19 TIME: 07:27 Anesthesia Eval and Record Evaluation Time Pre-Procedure Interview DATE: 01/13/19 TIME: 07:27 Age 63 Sex male NPO: 8 hrs Preoperative diagnosis PVD Planned procedure Fem-Pop Past Medical History Past Medical History: Includes Cardio: HTN, Dyslipidemia, Arrythmia, CHF Endo: Diabetes GI: Obesity Surgery & Anesthesia Issues No known issue Meds Anticoagulation: No Beta Wilder within 24 hr: Yes Reason Beta Wilder not given: Pt. not on B-Wilder Reported Medications Ascorbic Acid (Vitamin C) 500 Mg Tab, 500 MG PO DAILY, TAB 01/12/19 Thiamine* (Vitamin B-1*) 100 Mg Tablet, 100 MG PO DAILY, TAB 01/12/19 Sennosides* (Senna Lax*) 8.6 Mg Tablet, 1 TAB PO QHS, TAB 01/12/19 Protein Supplement (Promod) 946 Ml Liquid, 946 ML PO 01/12/19 Clopidogrel Bisulfate (Clopidogrel) 75 Mg Tablet, 75 MG PO DAILY, #30 TAB 01/12/19 Hydrocodone/Acetaminophen (Milmay 10-325 Tablet) 1 Each Tablet, 1 EACH PO Q4, TAB 01/12/19 Multivitamins* (Theragran*) 1 Tab Tab, 1 TAB PO DAILY, TAB 01/12/19 Metoprolol Succinate* (Toprol XL*) 25 Mg Tab.sr.24h, 25 MG PO DAILY, #30 TAB 01/12/19 Metformin Hcl* (Metformin Hcl*) 1,000 Mg Tablet, 1000 MG PO WITH BREAKFAST DINNE, #30 TAB 01/12/19 Losartan Potassium* (Losartan Potassium*) 100 Mg Tablet, 100 MG PO DAILY, TAB 01/12/19 Furosemide* (Lasix*) 20 Mg Tablet, 20 MG PO DAILY, TAB 01/12/19 Insulin Glargine* (Lantus*) 100 Unit/Ml Soln, 1 UNIT SC QHS, #1 VIAL 01/12/19 Glipizide (Glipizide ER) 5 Mg Tab.er.24, 5 MG PO ACBD A, TAB 01/12/19 Gabapentin* (Gabapentin*) 600 Mg Tablet, 600 MG PO TID, #90 TAB 01/12/19 Folic Acid* (Folic Acid*) 1 Mg Tablet, 1 MG PO DAILY, TAB 01/12/19 Mineral Oil* (Fleet* Mineral Oil Enema) 133 Ml Oil, 133 ML SD NEEDED PRN for CONSTIPATION, ENEMA 01/12/19 Bisacodyl* (Dulcolax*) 5 Mg Tablet.dr, 10 MG PO DAILY PRN for CONSTIPATION, TAB 01/12/19 Atorvastatin Calcium* (Atorvastatin Calcium*) 20 Mg Tablet, 20 MG PO QHS, #30 TAB 01/12/19 Aspirin* (Aspirin* EC) 81 Mg Tablet.dr, 81 MG PO DAILY, TAB 01/12/19 Current Medications Morphine Sulfate (morphine) 4 mg Q3 PRN IV severe pain Last administered on 01/13/19at 05:07; Admin Dose 4 MG; Start 01/11/19 at 19:00 Ondansetron HCl (Zofran Inj) 4 mg Q4 PRN IV nausea; Start 01/11/19 at 19:00 IV Flush (NS 3 ml) 3 ml PER PROTOCOL IV ; Start 01/11/19 at 20:30 Ondansetron HCl (Zofran Inj) 4 mg Q6H PRN IV NAUSEA/VOMITING; Start 01/11/19 at 20:30 Acetaminophen (Tylenol Tab) 650 mg Q6H PRN PO .PAIN 1-3 OR TEMP; Start 01/11/19 at 20:30 Docusate Sodium (Colace) 100 mg Q12H PRN PO .CONSTIPATION; Start 01/11/19 at 20:30 Bisacodyl (Dulcolax) 5 mg DAILY PRN PO .CONSTIPATION; Start 01/11/19 at 20:30 Furosemide (Lasix) 20 mg DAILY IV Last administered on 01/12/19at 08:34; Admin Dose 20 MG; Start 01/12/19 at 09:00 Hydromorphone HCl (Dilaudid) 1 mg Q4H PRN IV SEVERE PAIN LEVEL 7-10 Last administered on 01/11/19at 22:38; Admin Dose 1 MG; Start 01/11/19 at 22:30 Heparin Sodium (Porcine) (Heparin (1000 Units/ml)) 4,000 unit PER PROTOCOL PRN IV aPTT<47; Start 01/12/19 at 05:30 Heparin Sodium (Porcine) 250 ml @ 9.5 mls/hr PER PROTOCOL IV Last administered on 01/12/19at 10:48; Admin Dose 11.5 MLS/HR; Start 01/11/19 at 23:30 Diltiazem HCl 125 ml @ 5 mls/hr TITRATE IV Last administered on 01/12/19 04:57; Admin Dose 5 MLS/HR; Start 01/12/19 at 05:00 Vancomycin HCl (Vanco Iv Per Pharmacy) VANCOMYCIN PER PHARMACY PER PROTOCOL XX ; Start 01/12/19 at 07:30 Piperacillin Sod/ Tazobactam Sod 100 ml @ 200 mls/hr Q6 IVPB Last administered on 01/13/19 05:07; Admin Dose 200 MLS/HR; Start 01/12/19 at 08:00 Vancomycin HCl 250 ml @ 125 mls/hr Q12 IVPB Last administered on 01/12/19 20:17; Admin Dose 125 MLS/HR; Start 01/12/19 at 21:00 Diagnostic Test (Pha) (Accu-Chek) 1 ea 02 XX Last administered on 01/13/19 02:12; Admin Dose 1 EA; Start 01/13/19 at 02:00 Insulin Glargine (Lantus) 16 units DAILY@2000 SC Last administered on 01/12/19 20:26; Admin Dose 16 UNITS; Start 01/12/19 at 20:00 Insulin Aspart (Novolog Insulin Pen) 5 unit WITH MEALS SC Last administered on 01/12/19 18:00; Admin Dose 5 UNIT; Start 01/12/19 at 12:00 Insulin Aspart (Novolog Insulin Pen) NOVOLOG *MILD* ALGORITHM WITH MEALS BEDTIME SC Last administered on 01/12/19 20:25; Admin Dose 2 UNIT; Start 01/12/19 at 12:00 Ferric Sodium Gluconate Complex 125 mg/Sodium Chloride 110 ml @ 110 mls/hr DAILY@1300 IVPB Last administered on 01/12/19 14:25; Admin Dose 110 MLS/HR; Start 01/12/19 at 13:00; Stop 01/16/19 at 13:59 Morphine Sulfate (Ms Contin (Er)) 15 mg BID PO Last administered on 01/12/19 21:31; Admin Dose 15 MG; Start 01/12/19 at 11:00 Docusate Sodium (Colace) 250 mg DAILY PO Last administered on 01/12/19 11:51; Admin Dose 250 MG; Start 01/12/19 at 11:00 Miscellaneous Information 1 ea NOTE XX ; Start 01/12/19 at 11:00 Glucose (Glutose) 15 gm Q15M PRN PO DECREASED GLUCOSE; Start 01/12/19 at 11:00 Glucose (Glutose) 22.5 gm Q15M PRN PO DECREASED GLUCOSE; Start 01/12/19 at 11:00 Dextrose (D50w Syringe) 25 ml Q15M PRN IV DECREASED GLUCOSE; Start 01/12/19 at 11:00 Dextrose (D50w Syringe) 50 ml Q15M PRN IV DECREASED GLUCOSE; Start 01/12/19 at 11:00 Glucagon (Glucagen) 1 mg Q15M PRN IM DECREASED GLUCOSE; Start 01/12/19 at 11:00 Glucose (Glutose) 15 gm Q15M PRN BUCCAL DECREASED GLUCOSE; Start 01/12/19 at 11:00 Amiodarone HCl 900 mg/Dextrose 500 ml @ 0 mls/hr Q0M IV Last administered on 01/12/19at 14:22; Admin Dose 33.33 MLS/HR; Start 01/12/19 at 12:00 Atorvastatin Calcium (Lipitor) 40 mg HS PO Last administered on 01/12/19at 20:16; Admin Dose 40 MG; Start 01/12/19 at 21:00 Metoprolol Tartrate (Lopressor) 50 mg Q8 PO Last administered on 01/13/19at 05:07; Admin Dose 50 MG; Start 01/12/19 at 14:00 Meds reviewed: Yes Allergies Coded Allergies: No Known Allergy (Unverified , 07/21/14) Allergies Reviewed: Yes Labs/Studies Labs Reviewed: Reviewed by anesthesiologist Result Diagram: 01/13/19 0516 01/13/19 0513 Laboratory Tests 01/13/19 05:13 01/13/19 05:16 test: N/A Pre-procedure Exam Last vitals Vital Signs Date Temp Pulse Resp B/P (MAP) Pulse Ox O2 O2 Flow FiO2 Time Delivery Rate 01/13/19 95 04:29 01/13/19 97.7 18 119/68 98 04:09 (85) 01/13/19 2.0 03:53 01/12/19 Nasal 20:00 Cannula Airway: Adequate mouth opening Mallampati: Mallampati III Teeth: Normal Lung: Normal Heart: Abnormal ASA Physical Status ASA physical status: 3 Emergency: None Planned Anesthetic General/MAC: ETT Pre-operative Attestations Prior to commencing anesthesia and surgery, the patient was re-evaluated, there was verification of: *The patient's identity *The results of appropriate recent lab work and preoperative vital signs *The above evaluation not changing prior to induction *Anesthetic plan, risk benefits, alternative and complications discussed with patient/family; questions answered; patient/family understands, accepts and wishes to proceed. EBONY GALINDO MD January 13, 2019 07:30
[2019-01-13] MEDS: VANCOMYCIN 1 GM 250 ML IVPB SCH (07:36)
[2019-01-13] MEDS: INSULIN ASPART [NOVOLOG] 3 ML PEN SC SCH ×7 (08:00→20:54)
--- NOTE | 2019-01-13 08:48 | CONS ---
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 will try to contact his primary MD to see if cultures were done and what antibiotics he had been on 01/13 - ESR elevated at 85 continue with vanco/zosyn contacted primary MD and pt was given oral keflex in late november, will try to contact disintegrator feeder 2) DM his HgbA1C is elevated Consultation Date/Type/Reason Admit Date/Time January 11, 2019 at 18:31 Initial Consult Date 01/12/19 Type of Consult ID Date/Time of Note DATE: 01/13/19 TIME: 08:42 24 HR Interval Summary Free Text/Dictation pt is off floor getting bypass surgery Exam/Review of Systems Exam Vitals Vital Signs Date Temp Pulse Resp B/P (MAP) Pulse Ox O2 O2 Flow FiO2 Time Delivery Rate 01/13/19 87 08:05 01/13/19 97.7 18 119/68 98 04:09 (85) 01/13/19 2.0 03:53 01/12/19 Nasal 20:00 Cannula Intake and Output 01/12/19 01/12/19 01/13/19 1515:00 23:00 07:00 IntakeIntake Total 360 ml 1750 ml 450 ml OutputOutput Total 1800 ml BalanceBalance 360 ml -50 ml 450 ml Results Result Diagram: 01/13/19 0516 01/13/19 0513 Results 24hrs Laboratory Tests Test 01/12/19 12:02 01/12/19 17:26 01/12/19 19:29 01/12/19 20:15 Bedside Glucose 272 H 227 H 242 H Activated 71.2 *H Partial Thromboplast Time Test 01/13/19 02:07 01/13/19 05:13 01/13/19 05:16 01/13/19 05:21 Bedside Glucose 166 Sodium Level 138 Potassium Level 3.8 Chloride Level 102 Carbon Dioxide Level 27 Anion Gap 9 Blood Urea Nitrogen 15 Creatinine 0.71 Est Glomerular > 60 Filtrat Rate mL/min Glucose Level 190 Calcium Level 9.1 Magnesium Level 1.8 White Blood Count 12.2 #H Red Blood Count 4.43 L Hemoglobin 10.9 L Hematocrit 35.6 L Mean Corpuscular 80.4 L Volume Mean Corpuscular 24.6 L Hemoglobin Mean Corpuscular 30.6 L Hemoglobin Concent Red Cell 14.3 Distribution Width Platelet Count 443 H Mean Platelet Volume 9.5 Immature 0.200 Granulocytes % Neutrophils % 67.7 Lymphocytes % 21.4 Monocytes % 7.9 Eosinophils % 2.1 Basophils % 0.7 Nucleated Red Blood 0.0 Cells % Immature 0.030 Granulocytes # Neutrophils # 8.2 H Lymphocytes # 2.6 Monocytes # 1.0 H Eosinophils # 0.3 Basophils # 0.1 Nucleated Red Blood 0.0 Cells # Erythrocyte 85 H Sedimentation Rate Procalcitonin 0.06 Activated 34.0 Partial Thromboplast Time Mix PTT Normal Plasma Immediate Medications Medication Current Medications Morphine Sulfate (morphine) 4 mg Q3 PRN IV severe pain Last administered on 01/13/19at 05:07; Admin Dose 4 MG; Start 01/11/19 at 19:00 Ondansetron HCl (Zofran Inj) 4 mg Q4 PRN IV nausea; Start 01/11/19 at 19:00 IV Flush (NS 3 ml) 3 ml PER PROTOCOL IV ; Start 01/11/19 at 20:30 Ondansetron HCl (Zofran Inj) 4 mg Q6H PRN IV NAUSEA/VOMITING; Start 01/11/19 at 20:30 Acetaminophen (Tylenol Tab) 650 mg Q6H PRN PO .PAIN 1-3 OR TEMP; Start 01/11/19 at 20:30 Docusate Sodium (Colace) 100 mg Q12H PRN PO .CONSTIPATION; Start 01/11/19 at 20:30 Bisacodyl (Dulcolax) 5 mg DAILY PRN PO .CONSTIPATION; Start 01/11/19 at 20:30 Furosemide (Lasix) 20 mg DAILY IV Last administered on 01/12/19at 08:34; Admin Dose 20 MG; Start 01/12/19 at 09:00 Hydromorphone HCl (Dilaudid) 1 mg Q4H PRN IV SEVERE PAIN LEVEL 7-10 Last administered on 01/11/19at 22:38; Admin Dose 1 MG; Start 01/11/19 at 22:30 Heparin Sodium (Porcine) (Heparin (1000 Units/ml)) 4,000 unit PER PROTOCOL PRN IV aPTT<47; Start 01/12/19 at 05:30 Heparin Sodium (Porcine) 250 ml @ 9.5 mls/hr PER PROTOCOL IV Last administered on 01/12/19at 10:48; Admin Dose 11.5 MLS/HR; Start 01/11/19 at 23:30 Diltiazem HCl 125 ml @ 5 mls/hr TITRATE IV Last administered on 01/12/19 04:57; Admin Dose 5 MLS/HR; Start 01/12/19 at 05:00 Vancomycin HCl (Vanco Iv Per Pharmacy) VANCOMYCIN PER PHARMACY PER PROTOCOL XX ; Start 01/12/19 at 07:30 Piperacillin Sod/ Tazobactam Sod 100 ml @ 200 mls/hr Q6 IVPB Last administered on 01/13/19 05:07; Admin Dose 200 MLS/HR; Start 01/12/19 at 08:00 Vancomycin HCl 250 ml @ 125 mls/hr Q12 IVPB Last administered on 01/13/19 07:36; Admin Dose 125 MLS/HR; Start 01/12/19 at 21:00 Diagnostic Test (Pha) (Accu-Chek) 1 ea 02 XX Last administered on 01/13/19 02:12; Admin Dose 1 EA; Start 01/13/19 at 02:00 Insulin Glargine (Lantus) 16 units DAILY@2000 SC Last administered on 01/12/19 20:26; Admin Dose 16 UNITS; Start 01/12/19 at 20:00 Insulin Aspart (Novolog Insulin Pen) 5 unit WITH MEALS SC Last administered on 01/12/19 18:00; Admin Dose 5 UNIT; Start 01/12/19 at 12:00 Insulin Aspart (Novolog Insulin Pen) NOVOLOG *MILD* ALGORITHM WITH MEALS BEDTIME SC Last administered on 01/12/19 20:25; Admin Dose 2 UNIT; Start 01/12/19 at 12:00 Ferric Sodium Gluconate Complex 125 mg/Sodium Chloride 110 ml @ 110 mls/hr DAILY@1300 IVPB Last administered on 01/12/19 14:25; Admin Dose 110 MLS/HR; Start 01/12/19 at 13:00; Stop 01/16/19 at 13:59 Morphine Sulfate (Ms Contin (Er)) 15 mg BID PO Last administered on 01/12/19at 21:31; Admin Dose 15 MG; Start 01/12/19 at 11:00 Docusate Sodium (Colace) 250 mg DAILY PO Last administered on 01/12/19at 11:51; Admin Dose 250 MG; Start 01/12/19 at 11:00 Miscellaneous Information 1 ea NOTE XX ; Start 01/12/19 at 11:00 Glucose (Glutose) 15 gm Q15M PRN PO DECREASED GLUCOSE; Start 01/12/19 at 11:00 Glucose (Glutose) 22.5 gm Q15M PRN PO DECREASED GLUCOSE; Start 01/12/19 at 11:00 Dextrose (D50w Syringe) 25 ml Q15M PRN IV DECREASED GLUCOSE; Start 01/12/19 at 11:00 Dextrose (D50w Syringe) 50 ml Q15M PRN IV DECREASED GLUCOSE; Start 01/12/19 at 11:00 Glucagon (Glucagen) 1 mg Q15M PRN IM DECREASED GLUCOSE; Start 01/12/19 at 11:00 Glucose (Glutose) 15 gm Q15M PRN BUCCAL DECREASED GLUCOSE; Start 01/12/19 at 11:00 Amiodarone HCl 900 mg/Dextrose 500 ml @ 0 mls/hr Q0M IV Last administered on 01/12/19at 14:22; Admin Dose 33.33 MLS/HR; Start 01/12/19 at 12:00 Atorvastatin Calcium (Lipitor) 40 mg HS PO Last administered on 01/12/19at 20:16; Admin Dose 40 MG; Start 01/12/19 at 21:00 Metoprolol Tartrate (Lopressor) 50 mg Q8 PO Last administered on 01/13/19at 05:07; Admin Dose 50 MG; Start 01/12/19 at 14:00 PHANI MCCULLOUGH MD January 13, 2019 08:48
[2019-01-13] MEDS ORDERED: PHENYLephrine (100 MCG/ML) 10ML SYG ONE ×4 (08:51→10:40)
[2019-01-13] MEDS: morphine (ER) 15 MG TAB PO SCH ×2 (09:00→16:59)
[2019-01-13] MEDS: DOCUSATE SODIUM 250 MG CAP PO SCH (09:00)
[2019-01-13] MEDS: FUROSEMIDE 20 MG INJ IV SCH (09:00)
[2019-01-13] MEDS ORDERED: ONDANSETRON 4 MG INJ IV PRN (10:00)
[2019-01-13] MEDS ORDERED: FENTAnyl 50 MCG/ML VIAL IV PRN (10:00)
[2019-01-13] MEDS ORDERED: HYDROmorphONE 1 MG/5 ML IV SYRINGE IV PRN (10:00)
[2019-01-13] MEDS ORDERED: NEOSTIGMINE 3 MG/3 ML SYRINGE ONE (11:14)
[2019-01-13] MEDS ORDERED: GLYCOPYRROLATE 0.4 MG INJ ONE (11:14)
[2019-01-13] MEDS ORDERED: CLOPIDOGREL 75 MG TAB PO SCH (11:30)
--- NOTE | 2019-01-13 11:32 | SIPON ---
Date/Time of Note Date/Time of Note DATE: 01/13/19 TIME: 11:31 Operative Report Preoperative Diagnosis L foot gangrene Postoperative Diagnosis same Operation/Procedure Performed L pop-plantar bypass with non reversed GSV harvested endoscopically from the thigh Surgeon see signature line assistant track and field coach ZEYAD Zuleta Anesthesia: general Estimated blood loss: 50 - 100 ml's Transfusion Required none Specimen none Grafts/Implants none Complications none NICOLAS SAAB MD January 13, 2019 11:32
--- NOTE | 2019-01-13 12:07 | PAC ---
Date/Time of Note Date/Time of Note DATE: 01/13/19 TIME: 12:07 Post-Anesthesia Notes Post-Anesthesia Note Last documented vital signs Vital Signs Date Temp Pulse Resp B/P (MAP) Pulse Ox O2 O2 Flow FiO2 Time Delivery Rate 01/13/19 95 04:29 01/13/19 97.7 18 119/68 98 04:09 (85) 01/13/19 2.0 03:53 01/12/19 Nasal 20:00 Cannula Activity: WNL Respiratory function: WNL Cardiovascular function: WNL Mental status: Baseline Pain reasonably controlled: Yes Hydration appropriate: Yes Nausea/Vomiting absent: Yes EBONY GALINDO MD January 13, 2019 12:07
[2019-01-13] MEDS ORDERED: niCARdipine 50 MG in SOD CHLORIDE 0.9% 480 ML IV SCH (13:00)
[2019-01-13] MEDS: SOD FERRIC GLUC COMPLX 125 MG in SOD CHLORIDE 0.9% 100 ML IVPB SCH (13:00)
[2019-01-13] MEDS ORDERED: HEPARIN 25000 UNITS/250 ML 250 ML IV SCH (13:30)
[2019-01-13] MEDS: ASPIRIN 325 MG TAB PO SCH (13:59)
[2019-01-13] MEDS: HYDROmorphONE 1 MG/ML SYG IV PRN ×2 (14:03→21:05)
--- NOTE | 2019-01-13 15:03 | OPR ---
DATE OF OPERATION: PREOPERATIVE DIAGNOSIS: Left 4th and 5th toe gangrene. POSTOPERATIVE DIAGNOSIS: Left 4th and 5th toe gangrene. PROCEDURE PERFORMED: Left popliteal artery to common plantar artery bypass using nonreversed great s aphenous vein harvested from the left thigh endoscopically. SURGEON: Nicolas Gordon MD SUPREME COURT JUDGE: ZEYAD Gonzalez ANESTHESIA: General endotracheal anesthesia. ESTIMATED BLOOD LOSS: 100 mL. COMPLICATIONS: There were no intraprocedural complications. INDICATIONS: This is a 63-year-old poorly controlled diabetic with gangrene of the left 4th and 5th toes and severe rest pain. He had an arteriogram done about 10 days ago which showed very distal dis ease. There is essentially occlusion of anterior tibial and posterior tibial at the ankle with very diseased small dorsalis pedis in the foot, but a patent common plantar also very small and calcified, but it was patent. I talked to the patient and the family. I tried angioplasty to the anterior and posterior tibial without much success and that no real improvement in the symptoms. I explained to them without any further intervention, he is going to end up needing a below knee amputation, but the best chance for salvaging the foot would be to do a bypass to the common plantar down below the area of severe calcification and stenosis the distal posterior tibial. They have agreed to proceed. The y understand there is still high risk of below knee amputation in the future. PROCEDURE IN DETAILS: The patient was brought to the operating room and placed on the table in the s upine position. Left leg was prepped and draped in the usual sterile fashion. I already marked the great saphenous vein on the skin. ZEYAD oGnzalez harvested the vein from the thigh endoscopic ally using the endoscopic vein harvesting tool. While she was doing that, I cut down on the common p lantar artery at the ankle and made an incision just below and posterior to the medial malleolus. I dissected out the distal posterior tibial. The common plantar artery was very heavily calcified. I found 2 spots that I could clamp safely. I then do the anastomosis after Renetta removed and harves tiara the saphenous vein from the thigh, we went back with 3-0 silk ties and all the branches that we h ad been ligated with heat. I then flushed the vein and it was a good size, 3 mm. No injuries to the vein anywhere. I did not transect the vein distally. I just moved it out of the way and then cut t hem and then made an incision in the upper medial calf. I dissected out the remaining portion of the vein in the upper calf under direct vision and ligated all the side branches with 3-0 silk ties. I then opened the fascia over both medial calf muscles. I dissected down through the subcutaneous tiss ue using electrocautery and exposed the popliteal vein and artery just at the knee level. It was als o calcified, but had a good pulse and was clampable. I had the popliteal artery exposed and the plan tar artery exposed. I placed a Kristin tunneler and left it in the tunnel and gave the patient 7000 units of heparin intravenously. I then ligated the greater saphenous vein in the mid calf using 3-0 silk tie and several clips and then divided it. It flushed again from below and flushed easily. The re was good flow and no leaking anywhere. I then clamped the popliteal artery proximally and distall y. I made about a cm long anterior arteriotomy and spatulated the upper end of the vein, the groin p ortion of the vein spatulated it then cut the first valve under direct vision. I spatulated it to fi t the arteriotomy and the popliteal artery and then anastomosed the upper end of the vein to the side of the popliteal artery using 6-0 Prolene suture in a running standard vascular surgical fashion. I removed the clamps and there was good hemostasis with repair stitches and there was good hemostasis. The valves were competent. I passed the LeMaitre valvulotome twice from below, cut all the valves and had excellent outflow through the end of the vein. I then marked the anterior surface of the vei n, then brought it through the tunneler through the skin then removed the Kristin tunneler leaving th e vein and the tract. I then clamped the common plantar artery proximally and distally. I made an a nterior arteriotomy about 8 mm in length, was very heavily calcified artery and extended all the way down, but stopped more distally and it was even more calcified more proximally. I then did a little bit of an endarterectomy of the plantar artery just to remove some of the calcium in the wall. I the n cut the vein to the appropriate length. I spatulated the distal end of the vein to fit that arteri otomy and anastomosed the distal end of the greater saphenous vein to the side of the common plantar artery again using 6-0 Prolene suture in a running standard vascular surgical fashion. There was goo d backbleeding. I backbled from the distal and passed a 1 mm dilator down into the distal common cody ntar artery. There was good backflow from it. I then removed the clamps and the graft. I flushed t hat. I flushed the arterial anastomosis with heparinized saline and then completed the anastomosis, removed the clamps and there was a good pulse in the graft, the anastomosis. I listened with the Dop pler and there was a triphasic Doppler signal in the graft and at the anastomosis, the plantar artery is so calcified that we really could not hear anything through it, but there is definitely flow thro ugh the graft and it was going into the plantar artery. There was good hemostasis. I was happy with the results at this point. I went to the ankle. I closed with interrupted 4-0 nylon vertical mattr ess sutures. One of the upper calf were closed with 3-0 Vicryl suture to close subcutaneous tissue a nd angel for the skin, but the harvest site there was no need for any closure. It was harvested en doscopically. The patient was then transferred into the ICU in stable condition. He tolerated the p rocedure well without any complications. Dictated By: NICOLAS MARROQUIN/VIRGIE Conf#: [id number] DID#: [id number] CC: LOUIS ROCK MD; NORMAN IVORY DPM; MARÍA BIANCHI MD; YAZMIN PARKER DO; PHANI Donaldson MD; BERKLEY MENDEZ MD;*EndCC*
[2019-01-13] MEDS ORDERED: MAGNESIUM SULFATE 1 GM/D5W 100 ML IVPB ONE (16:00)
--- NOTE | 2019-01-13 16:17 | CONS ---
Assessment/Plan Assessment/Plan Hospital Course (Demo Recall) New onset atrial fibrillation with rapid ventricular rates, currently sinus LVEF 50-55% Critical limb ischemia with gangrene s/p surgical revascularization 01/13/19 Diabetes, uncontrolled Hypertension Dyslipidemia Peripheral arterial disease -patient has done well post op -switch to po amio -Continue beta-timmy, continue statin therapy Consultation Date/Type/Reason Admit Date/Time January 11, 2019 at 18:31 Initial Consult Date 01/12/19 Type of Consult Cardiology Date/Time of Note DATE: 01/13/19 TIME: 16:15 24 HR Interval Summary Free Text/Dictation no sob,cp,palp Exam/Review of Systems Vital Signs Vitals Vital Signs Date Temp Pulse Resp B/P (MAP) Pulse Ox O2 O2 Flow FiO2 Time Delivery Rate 01/13/19 94 26 132/53 94 15:00 (79) 01/13/19 Nasal 6.0 13:00 Cannula 01/13/19 98.0 12:16 Intake and Output 01/12/19 01/12/19 01/13/19 1515:00 23:00 07:00 IntakeIntake Total 360 ml 1750 ml 450 ml OutputOutput Total 1800 ml BalanceBalance 360 ml -50 ml 450 ml Exam Constitutional: alert (nad), oriented Head: normocephalic Respiratory: clear to auscultation, normal air movement Cardiovascular: regular rate and rhythm (s1s2) Gastrointestinal: soft, non-tender, bowel sounds Extremities: edema Labs Result Diagram: 01/13/19 0516 01/13/19 0513 Results 24hrs Laboratory Tests Test 01/12/19 17:26 01/12/19 19:29 01/12/19 20:15 01/13/19 02:07 Bedside Glucose 227 H 242 H 166 Activated 71.2 *H Partial Thromboplast Time Test 01/13/19 05:13 01/13/19 05:16 01/13/19 05:21 01/13/19 14:42 Sodium Level 138 Potassium Level 3.8 Chloride Level 102 Carbon Dioxide Level 27 Anion Gap 9 Blood Urea Nitrogen 15 Creatinine 0.71 Est Glomerular > 60 Filtrat Rate mL/min Glucose Level 190 Calcium Level 9.1 Magnesium Level 1.8 White Blood Count 12.2 #H Red Blood Count 4.43 L Hemoglobin 10.9 L Hematocrit 35.6 L Mean Corpuscular 80.4 L Volume Mean Corpuscular 24.6 L Hemoglobin Mean Corpuscular 30.6 L Hemoglobin Concent Red Cell 14.3 Distribution Width Platelet Count 443 H Mean Platelet Volume 9.5 Immature 0.200 Granulocytes % Neutrophils % 67.7 Lymphocytes % 21.4 Monocytes % 7.9 Eosinophils % 2.1 Basophils % 0.7 Nucleated Red Blood 0.0 Cells % Immature 0.030 Granulocytes # Neutrophils # 8.2 H Lymphocytes # 2.6 Monocytes # 1.0 H Eosinophils # 0.3 Basophils # 0.1 Nucleated Red Blood 0.0 Cells # Erythrocyte 85 H Sedimentation Rate Procalcitonin 0.06 Activated 34.0 Partial Thromboplast Time Mix PTT Normal Plasma Immediate Bedside Glucose 224 H Medications Medications Current Medications Morphine Sulfate (morphine) 4 mg Q3 PRN IV severe pain Last administered on 01/13/19at 05:07; Admin Dose 4 MG; Start 01/11/19 at 19:00 Ondansetron HCl (Zofran Inj) 4 mg Q4 PRN IV nausea; Start 01/11/19 at 19:00 IV Flush (NS 3 ml) 3 ml PER PROTOCOL IV ; Start 01/11/19 at 20:30 Ondansetron HCl (Zofran Inj) 4 mg Q6H PRN IV NAUSEA/VOMITING; Start 01/11/19 at 20:30 Acetaminophen (Tylenol Tab) 650 mg Q6H PRN PO .PAIN 1-3 OR TEMP; Start 01/11/19 at 20:30 Docusate Sodium (Colace) 100 mg Q12H PRN PO .CONSTIPATION; Start 01/11/19 at 20:30 Bisacodyl (Dulcolax) 5 mg DAILY PRN PO .CONSTIPATION; Start 01/11/19 at 20:30 Furosemide (Lasix) 20 mg DAILY IV Last administered on 01/12/19at 08:34; Admin Dose 20 MG; Start 01/12/19 at 09:00 Hydromorphone HCl (Dilaudid) 1 mg Q4H PRN IV SEVERE PAIN LEVEL 7-10 Last administered on 01/13/19at 14:03; Admin Dose 1 MG; Start 01/11/19 at 22:30 Vancomycin HCl (Vanco Iv Per Pharmacy) VANCOMYCIN PER PHARMACY PER PROTOCOL XX ; Start 01/12/19 at 07:30 Piperacillin Sod/ Tazobactam Sod 100 ml @ 200 mls/hr Q6 IVPB Last administered on 01/13/19 16:04; Admin Dose 200 MLS/HR; Start 01/12/19 at 08:00 Vancomycin HCl 250 ml @ 125 mls/hr Q12 IVPB Last administered on 01/13/19 07:36; Admin Dose 125 MLS/HR; Start 01/12/19 at 21:00 Diagnostic Test (Pha) (Accu-Chek) 1 ea 02 XX Last administered on 01/13/19at 02:12; Admin Dose 1 EA; Start 01/13/19 at 02:00 Insulin Glargine (Lantus) 16 units DAILY@2000 SC Last administered on 01/12/19 20:26; Admin Dose 16 UNITS; Start 01/12/19 at 20:00 Insulin Aspart (Novolog Insulin Pen) 5 unit WITH MEALS SC Last administered on 01/12/19 18:00; Admin Dose 5 UNIT; Start 01/12/19 at 12:00 Insulin Aspart (Novolog Insulin Pen) NOVOLOG *MILD* ALGORITHM WITH MEALS BEDTIME SC Last administered on 01/12/19 20:25; Admin Dose 2 UNIT; Start at 12:00 Ferric Sodium Gluconate Complex 125 mg/Sodium Chloride 110 ml @ 110 mls/hr DAILY@1300 IVPB Last administered on 01/12/19 14:25; Admin Dose 110 MLS/HR; Start 01/12/19 at 13:00; Stop 01/16/19 at 13:59 Morphine Sulfate (Ms Contin (Er)) 15 mg BID PO Last administered on 01/12/19at 21:31; Admin Dose 15 MG; Start 01/12/19 at 11:00 Docusate Sodium (Colace) 250 mg DAILY PO Last administered on 01/12/19at 11:51; Admin Dose 250 MG; Start 01/12/19 at 11:00 Miscellaneous Information 1 ea NOTE XX ; Start 01/12/19 at 11:00 Glucose (Glutose) 15 gm Q15M PRN PO DECREASED GLUCOSE; Start 01/12/19 at 11:00 Glucose (Glutose) 22.5 gm Q15M PRN PO DECREASED GLUCOSE; Start 01/12/19 at 11:00 Dextrose (D50w Syringe) 25 ml Q15M PRN IV DECREASED GLUCOSE; Start 01/12/19 at 11:00 Dextrose (D50w Syringe) 50 ml Q15M PRN IV DECREASED GLUCOSE; Start 01/12/19 at 11:00 Glucagon (Glucagen) 1 mg Q15M PRN IM DECREASED GLUCOSE; Start 01/12/19 at 11:00 Glucose (Glutose) 15 gm Q15M PRN BUCCAL DECREASED GLUCOSE; Start 01/12/19 at 11:00 Amiodarone HCl 900 mg/Dextrose 500 ml @ 0 mls/hr Q0M IV Last administered on 01/12/19 14:22; Admin Dose 33.33 MLS/HR; Start 01/12/19 at 12:00 Atorvastatin Calcium (Lipitor) 40 mg HS PO Last administered on 01/12/19 20:16; Admin Dose 40 MG; Start 01/12/19 at 21:00 Metoprolol Tartrate (Lopressor) 50 mg Q8 PO Last administered on 01/13/19 16:06; Admin Dose 50 MG; Start 01/12/19 at 14:00 Nicardipine HCl 50 mg/Sodium Chloride 500 ml @ 50 mls/hr TITRATE IV Last administered on 01/13/19 13:24; Admin Dose 50 MLS/HR; Start 01/13/19 at 13:00 Aspirin (Aspirin) 325 mg DAILY PO Last administered on 01/13/19 13:59; Admin Dose 325 MG; Start 01/13/19 at 11:30 Clopidogrel Bisulfate (plaVIX) 75 mg DAILY PO Last administered on 01/13/19 13:59; Admin Dose 75 MG; Start 01/13/19 at 11:30 Heparin Sodium (Porcine) 250 ml @ 5 mls/hr IV IV Last administered on 01/13/19 14:10; Admin Dose 5 MLS/HR; Start 01/13/19 at 13:30 Magnesium Sulfate/ Dextrose 100 ml @ 100 mls/hr ONCE ONCE IVPB Last administered on 01/13/19 16:06; Admin Dose 100 MLS/HR; Start 01/13/19 at 16:00; Stop 01/13/19 at 16:59 Buddy Otto DO January 13, 2019 16:17
[2019-01-13] MEDS ORDERED: AMIODARONE 200 MG TAB PO SCH ×2 (17:00→21:00)
[2019-01-13] MEDS ORDERED: AMIODARONE 900 MG in DEXTROSE 5% 482 ML IV SCH (18:00)
[2019-01-13] MEDS ORDERED: METOPROLOL 50 MG TAB PO SCH (18:00)
[2019-01-13] MEDS ORDERED: DILTIAZEM 25 MG INJ IV ONE (18:00)
[2019-01-13] MEDS: INSULIN GLARGINE [LANTus] (100 UNITS/ML) SYG SC SCH (19:55)
[2019-01-13] MEDS: VANCOMYCIN HCL 1.25 GM in SOD CHLORIDE 0.9% 250 ML IVPB SCH (20:25)
[2019-01-13] MEDS: ATORVASTATIN 40 MG TAB PO SCH (20:49)
[2019-01-14] VITALS (24 sets, daily range): BP systolic 94–130; BP diastolic 47–66; PULSE 83–120; RESP 12–26
[2019-01-14] MEDS: ACCU-CHEK XX SCH (01:50)
[2019-01-14] MEDS: HYDROmorphONE 1 MG/ML SYG IV PRN ×2 (04:26→11:45)
[2019-01-14] MEDS: PIPER-TAZO 3.375 GM IV (PMX) 100 ML IVPB SCH ×4 (05:30→23:59)
[2019-01-14] MEDS: METOPROLOL 50 MG TAB PO SCH ×2 (05:30→12:00)
[2019-01-14] MEDS ORDERED: PHENYLephrine (100 MCG/ML) 10ML SYG ONE (07:00)
--- NOTE | 2019-01-14 07:23 | PN ---
Date/Time of Note Date/Time of Note DATE: 01/14/19 TIME: 07:19 Assessment/Plan Lines/Catheters IV Catheter Type (from Nrs): A Line Merrill in Place (from Nrs): Yes Assessment/Plan Assessment/Plan Doing well s/p L pop-PT bypass - graft patent, foot well perfused OK for 4th / 5th toe amputation today AFib - on Amiodarone drip, management per Dr. Otto OK to start Eliquis after toe amputation if needed ASA / Plavix OK to transfer to med/surg floor when AFib issues are resolved Subjective 24 Hr Interval Summary Comfortable, no CP / SOB. Back in AFib with rate 100-120. Exam/Review of Systems Vital Signs Vitals Vital Signs Date Temp Pulse Resp B/P (MAP) Pulse Ox O2 O2 Flow FiO2 Time Delivery Rate 01/14/19 114 19 108/52 97 Nasal 6.0 07:00 (70) Cannula 01/14/19 98.4 04:00 Intake and Output 01/13/19 01/13/19 01/14/19 1515:00 23:00 07:00 IntakeIntake Total 2130 ml 643.066 ml 409.90 ml OutputOutput Total 950 ml 1025 ml 695 ml BalanceBalance 1180 ml -381.934 ml -285.10 ml Exam Free Text/Dictation L foot warm and hyperemic, 2+ graft pulse, incisions clean and dry, no hematoma or bleeding Results Result Diagram: 01/14/19 0500 01/14/19 0441 NICOLAS SAAB MD January 14, 2019 07:23
[2019-01-14] MEDS: INSULIN ASPART [NOVOLOG] 3 ML PEN SC SCH ×7 (07:35→20:46)
[2019-01-14] MEDS ORDERED: BACITRACIN 50000 UNITS INJ ONE (07:40)
[2019-01-14] MEDS ORDERED: POLYMYXIN B 500000 UNIT INJ ONE (07:41)
[2019-01-14] MEDS ORDERED: LIDOCAINE 1% (MPF) 30 ML INJ ONE (07:41)
--- NOTE | 2019-01-14 07:59 | PREAC ---
Date/Time of Note Date/Time of Note DATE: 01/14/19 TIME: 07:57 Anesthesia Eval and Record Evaluation Time Pre-Procedure Interview DATE: 01/14/19 TIME: 07:57 Age 63 Sex male NPO: 8 hrs Preoperative diagnosis PVD, necrosis left 4th,5th toe Planned procedure left 4th,5th toe amputation Past Medical History Past Medical History: Includes Cardio: HTN, Dyslipidemia, Arrythmia, CHF Endo: Diabetes GI: Obesity Surgery & Anesthesia Issues No known issue Meds Anticoagulation: Yes Beta Wilder within 24 hr: Yes Reported Medications Ascorbic Acid (Vitamin C) 500 Mg Tab, 500 MG PO DAILY, TAB 01/12/19 Thiamine* (Vitamin B-1*) 100 Mg Tablet, 100 MG PO DAILY, TAB 01/12/19 Sennosides* (Senna Lax*) 8.6 Mg Tablet, 1 TAB PO QHS, TAB 01/12/19 Protein Supplement (Promod) 946 Ml Liquid, 946 ML PO 01/12/19 Clopidogrel Bisulfate (Clopidogrel) 75 Mg Tablet, 75 MG PO DAILY, #30 TAB 01/12/19 Hydrocodone/Acetaminophen ([place] 10-325 Tablet) 1 Each Tablet, 1 EACH PO Q4, TAB 01/12/19 Multivitamins* (Theragran*) 1 Tab Tab, 1 TAB PO DAILY, TAB 01/12/19 Metoprolol Succinate* (Toprol XL*) 25 Mg Tab.sr.24h, 25 MG PO DAILY, #30 TAB 01/12/19 Metformin Hcl* (Metformin Hcl*) 1,000 Mg Tablet, 1000 MG PO WITH BREAKFAST DINNE, #30 TAB 01/12/19 Losartan Potassium* (Losartan Potassium*) 100 Mg Tablet, 100 MG PO DAILY, TAB 01/12/19 Furosemide* (Lasix*) 20 Mg Tablet, 20 MG PO DAILY, TAB 01/12/19 Insulin Glargine* (Lantus*) 100 Unit/Ml Soln, 1 UNIT SC QHS, #1 VIAL 01/12/19 Glipizide (Glipizide ER) 5 Mg Tab.er.24, 5 MG PO ACBD A, TAB 01/12/19 Gabapentin* (Gabapentin*) 600 Mg Tablet, 600 MG PO TID, #90 TAB 01/12/19 Folic Acid* (Folic Acid*) 1 Mg Tablet, 1 MG PO DAILY, TAB 01/12/19 Mineral Oil* (Fleet* Mineral Oil Enema) 133 Ml Oil, 133 ML MI NEEDED PRN for CONSTIPATION, ENEMA 01/12/19 Bisacodyl* (Dulcolax*) 5 Mg Tablet.dr, 10 MG PO DAILY PRN for CONSTIPATION, TAB 01/12/19 Atorvastatin Calcium* (Atorvastatin Calcium*) 20 Mg Tablet, 20 MG PO QHS, #30 TAB 01/12/19 Aspirin* (Aspirin* EC) 81 Mg Tablet.dr, 81 MG PO DAILY, TAB 01/12/19 Current Medications Morphine Sulfate (morphine) 4 mg Q3 PRN IV severe pain Last administered on 01/13/19at 05:07; Admin Dose 4 MG; Start 01/11/19 at 19:00 IV Flush (NS 3 ml) 3 ml PER PROTOCOL IV ; Start 01/11/19 at 20:30 Ondansetron HCl (Zofran Inj) 4 mg Q6H PRN IV NAUSEA/VOMITING; Start 01/11/19 at 20:30 Acetaminophen (Tylenol Tab) 650 mg Q6H PRN PO .PAIN 1-3 OR TEMP; Start 01/11/19 at 20:30 Docusate Sodium (Colace) 100 mg Q12H PRN PO .CONSTIPATION; Start 01/11/19 at 20:30 Bisacodyl (Dulcolax) 5 mg DAILY PRN PO .CONSTIPATION; Start 01/11/19 at 20:30 Furosemide (Lasix) 20 mg DAILY IV Last administered on 01/12/19at 08:34; Admin Dose 20 MG; Start 01/12/19 at 09:00 Hydromorphone HCl (Dilaudid) 1 mg Q4H PRN IV SEVERE PAIN LEVEL 7-10 Last administered on 01/14/19at 04:26; Admin Dose 1 MG; Start 01/11/19 at 22:30 Vancomycin HCl (Vanco Iv Per Pharmacy) VANCOMYCIN PER PHARMACY PER PROTOCOL XX ; Start 01/12/19 at 07:30 Piperacillin Sod/ Tazobactam Sod 100 ml @ 200 mls/hr Q6 IVPB Last administered on 01/14/19at 05:30; Admin Dose 200 MLS/HR; Start 01/12/19 at 08:00 Diagnostic Test (Pha) (Accu-Chek) 1 XX Last administered on 01/14/19 01:50; Admin Dose 1 EA; Start 01/13/19 at 02:00 Insulin Glargine (Lantus) 16 units DAILY@2000 SC Last administered on 01/13/19 19:55; Admin Dose 16 UNITS; Start 01/12/19 at 20:00 Insulin Aspart (Novolog Insulin Pen) 5 unit WITH MEALS SC Last administered on 01/12/19 18:00; Admin Dose 5 UNIT; Start 01/12/19 at 12:00 Ferric Sodium Gluconate Complex 125 mg/Sodium Chloride 110 ml @ 110 mls/hr DAILY@1300 IVPB Last administered on 01/12/19 14:25; Admin Dose 110 MLS/HR; Start 01/12/19 at 13:00; Stop 01/16/19 at 13:59 Morphine Sulfate (Ms Contin (Er)) 15 mg BID PO Last administered on 01/13/19at 16:59; Admin Dose 15 MG; Start 01/12/19 at 11:00 Docusate Sodium (Colace) 250 mg DAILY PO Last administered on 01/12/19at 11:51; Admin Dose 250 MG; Start 01/12/19 at 11:00 Miscellaneous Information 1 ea NOTE XX ; Start 01/12/19 at 11:00 Glucose (Glutose) 15 gm Q15M PRN PO DECREASED GLUCOSE; Start 01/12/19 at 11:00 Glucose (Glutose) 22.5 gm Q15M PRN PO DECREASED GLUCOSE; Start 01/12/19 at 11:00 Dextrose (D50w Syringe) 25 ml Q15M PRN IV DECREASED GLUCOSE; Start 01/12/19 at 11:00 Dextrose (D50w Syringe) 50 ml Q15M PRN IV DECREASED GLUCOSE; Start 01/12/19 at 11:00 Glucagon (Glucagen) 1 mg Q15M PRN IM DECREASED GLUCOSE; Start 01/12/19 at 11:00 Glucose (Glutose) 15 gm Q15M PRN BUCCAL DECREASED GLUCOSE; Start 01/12/19 at 11:00 Atorvastatin Calcium (Lipitor) 40 mg HS PO Last administered on 01/13/19at 20:49; Admin Dose 40 MG; Start 01/12/19 at 21:00 Nicardipine HCl 50 mg/Sodium Chloride 500 ml @ 50 mls/hr TITRATE IV Last ad ministered on 01/13/19 13:24; Admin Dose 50 MLS/HR; Start 01/13/19 at 13:00 Aspirin (Aspirin) 325 mg DAILY PO Last administered on 01/13/19 13:59; Admin Dose 325 MG; Start 01/13/19 at 11:30 Heparin Sodium (Porcine) 250 ml @ 5 mls/hr IV IV Last administered on 01/13/19at 14:10; Admin Dose 5 MLS/HR; Start 01/13/19 at 13:30 Amiodarone HCl 900 mg/Dextrose 500 ml @ 0 mls/hr Q0M IV Last administered on 01/13/19 19:32; Admin Dose 33.3 MLS/HR; Start 01/13/19 at 18:00; Stop 01/14/19 at 17:59 Metoprolol Tartrate (Lopressor) 50 mg Q6 PO Last administered on 01/13/19 23:22; Admin Dose 50 MG; Start 01/14/19 at 00:00 Vancomycin HCl 1.25 gm/Sodium Chloride 250 ml @ 83.333 mls/ hr Q12H IVPB Last administered on 01/13/19 20:25; Admin Dose 83.333 MLS/HR; Start 01/13/19 at 21:00 Insulin Aspart (Novolog Insulin Pen) NOVOLOG *MODERATE* ALGORITHM WITH MEALS BEDTIME SC ; Start 01/14/19 at 07:35 Apixaban (Eliquis) 5 mg BID PO ; Start 01/14/19 at 09:00; Status UNV Meds reviewed: Yes Allergies Coded Allergies: No Known Allergy (Unverified , 07/21/14) Allergies Reviewed: Yes Labs/Studies Labs Reviewed: Reviewed by anesthesiologist Result Diagram: 01/14/19 0500 01/14/19 0441 Laboratory Tests 01/14/19 04:29 01/14/19 04:41 01/14/19 05:00 test: N/A Studies: ECG (Af), CXR (cardiomegally and interstitial edema) Pre-procedure Exam Last vitals Vital Signs Date Temp Pulse Resp B/P (MAP) Pulse Ox O2 O2 Flow FiO2 Time Delivery Rate 01/14/19 114 19 108/52 97 Nasal 6.0 07:00 (70) Cannula 01/14/19 98.4 04:00 Airway: Adequate mouth opening Mallampati: Mallampati I Teeth: Normal Lung: Normal Heart: Normal ASA Physical Status ASA physical status: 3 Emergency: None Planned Anesthetic General/MAC: LMA, TIVA Planned Pain Management Parenteral pain med Pre-operative Attestations Prior to commencing anesthesia and surgery, the patient was re-evaluated, there was verification of: *The patient's identity *The results of appropriate recent lab work and preoperative vital signs *The above evaluation not changing prior to induction *Anesthetic plan, risk benefits, alternative and complications discussed with patient/family; questions answered; patient/family understands, accepts and wishes to proceed. COLE OLIVIER MD January 14, 2019 07:59
--- NOTE | 2019-01-14 08:06 | PN ---
DATE: 01/13/2019 SUBJECTIVE: The patient was seen early this morning prior to surgery and at that time, the patient h ad no new complaints. The pain was better controlled. He was n.p.o. PHYSICAL EXAMINATION: VITAL SIGNS: Temperature 97.7, pulse 87, respirations 18, blood pressure 119/68, saturations 98% on oxygen at 2 liters per minute. GENERAL: The patient was alert and oriented, in no distress. HEENT: Head is normocephalic. Pupils are equal and reactive. NECK: Supple. CHEST: Clear to auscultation. CARDIOVASCULAR: He had irregularly irregular rhythm. No murmurs. ABDOMEN: Soft, nontender. EXTREMITIES: Lower extremities: The patient did have left foot bandaged. LABORATORY VALUES: Today, he has a leukocytosis of 12,000, hemoglobin is 10. He continues to have h ypochromasia, platelet count is 443, which is elevated. His chemistry and basic metabolic profile is basically normal though his magnesium is 1.8. Serum glucose is still with suboptimal control. The patient did not receive hypoglycemic therapy yesterday as he was n.p.o. ASSESSMENT AND PLAN: A 63-year-old male who had presented to the emergency room from the vascular mobley rgeon's office because of severe left 4th and 5th digit toe pain with known severe peripheral arteria l disease with gangrene of left foot digit. He has managed as follows: 1. Severe peripheral arterial disease with left 4th foot dry gangrene and impending gangrene of left 5th digit as well. - Plan for bypass surgery/angiogram today. 2. Severe left lower extremity pain secondary to #1, improved on current regimen. 3. Newly diagnosed atrial fibrillation with rapid ventricular response. - Status post cardiology review. I appreciate the input. The patient has ruled out for acute torrez ry syndrome. Echo is low normal with left ventricular ejection fraction preserved. The patient has good rate control at this time. No further cardiac intervention warranted prior to surgery. 4. Chronic hypochromic anemia, stable secondary to iron deficiency. 5. Dyslipidemia with low HDL, on statin therapy. 6. Poorly controlled diabetes mellitus with hemoglobin A1c of 10. 7. Possible diastolic congestive heart failure. PLAN: The patient is to proceed with a vascular intervention as above. We will continue supportive care and pain control. It is my understanding that post-revascularization, the patient is going to u ndergo amputation of his left 4th toe by podiatry. In the interim, continue supportive care. Contin ue close monitoring. Continue IV iron replacement. Dictated By: BERKLEY MENDEZ MD BA/NTS Conf#: [id number] DID#: [id number] CC: MARÍA BIANCHI MD; YAZMIN PARKER DO;*EndCC*
[2019-01-14] MEDS ORDERED: MIDAZOLAM 1 MG/ML 2 ML INJ ONE (08:27)
[2019-01-14] MEDS ORDERED: FENTAnyl 50 MCG/ML VIAL ONE (08:27)
[2019-01-14] MEDS ORDERED: PROPOFOL 20 ML ONE (08:27)
[2019-01-14] MEDS: DOCUSATE SODIUM 250 MG CAP PO SCH (08:29)
[2019-01-14] MEDS: FUROSEMIDE 20 MG INJ IV SCH (08:29)
--- NOTE | 2019-01-14 09:19 | SIPON ---
Date/Time of Note Date/Time of Note DATE: 01/14/19 TIME: 09:19 Operative Report Preoperative Diagnosis Left foot gangrene. Peripheral arterial disease. Diabetes with peripheral neuropathy. Postoperative Diagnosis Left foot gangrene. Peripheral arterial disease. Diabetes with peripheral neuropathy. Operation/Procedure Performed left 4th digit amputation Surgeon see signature line pharmacy innovation assistant none Anesthesia: MAC Estimated blood loss: 0 - 10 ml's Transfusion Required none Specimen left foot wound culture left 4th digit pathology Grafts/Implants none Complications none AKIL BUCIO DPM January 14, 2019 09:19
--- NOTE | 2019-01-14 09:22 | OPR ---
Date/Time of Note Date/Time of Note DATE: 01/14/19 TIME: 09:22 Operative Report Preoperative Diagnosis Left foot gangrene. Peripheral arterial disease. Diabetes with peripheral neuropathy. Postoperative Diagnosis Left foot gangrene. Peripheral arterial disease. Diabetes with peripheral neuropathy. Operation/Procedure Performed left 4th digit amputation Surgeon see signature line Mental Health Nurse none Anesthesia Type: MAC Estimated Blood Loss: 0 - 10 ml's Transfusion none Specimen left foot wound culture left 4th digit pathology Grafts/Implants none Complications none Indications 63 y/o diabetic M patient with peripheral neuropathy presents with left foot gangrene. Patient just recently had bypass surgery. Discussed with the patient and family surgical intervention of left 4th digit amputation and possible 5th digit as well. They were amenable to the procedure. Addressed all of the patient's questions and concerns. No promises or guarantees were given. Procedure Description Patient was brought into the OR and placed in the supine position. The left lower extremity was scrubbed, prepped, and draped in the usual aseptic manner. A formal time out was conducted. Attention was directed to left foot gangrenous site. A local block was administered to the surgical site. The left 4th digit was disarticulated from the metatarsophalangeal joint, there was scant purulence noted to the amputation site and wound cultures were obtained. The digit was also sent for pathology. Copious irrigation was used at the amputation site. Further inspection was done to see if there was further purulence and no more could be appreciated at this time. There was a well demarcated 4th digit gangrene site, however there was gangrenous changes appearing to towards the plantar forefoot region and the 5th digit region. The area of the gangrenous changes are still demarcating and no further debridement or amputation was warranted at this time. The left 4th digit amputation site was left open and packed with iodoform packing and betadine 4x4 gauze with dry sterile dressings. Patient was transferred back to ICU with vital signs stable and neurovascular status intact. AKIL BUCIO DPM January 14, 2019 09:22
--- NOTE | 2019-01-14 10:17 | PN ---
Date/Time of Note Date/Time of Note DATE: 01/14/19 TIME: 10:17 Assessment/Plan VTE Prophylaxis Risk score (from Ns)>0 risk: 4 SCD applied (from Ns): No SCD contraindicated: other Pharmacological prophylaxis: heparin Lines/Catheters [facility]from [facility] A Line Urinary Cath still in place: Yes Reason Cath still needed: other (indicate) Assessment/Plan Hospital Course S: patient underwent 4th toe amputation this am,he remains sleepy from surgery O : Constitutional: sleeping deeply, barely arousable Head: atraumatic, normocephalic Neck: non-tender, supple Respiratory: clear to auscultation Cardiovascular: regular rate and rhythm Gastrointestinal: S/ NT / ND / +BS Extremities: L foot bandaged Assessment and plan: 63-year-old male who was sent to the emergency room from the vascular surgeon's office because of severe left fourth and fifth digit pain. Patient has no known severe peripheral arterial disease with gangrene of the left fourth digit. He has had angioplasty in the past which is reported to have failed. Patient was found to be in A. fib RVR upon arrival to the emergency room and is admitted and managed as follows: 1. Severe peripheral arterial disease with left 4th toe dry gangrene and impending gangrene of left fifth digit as well -s/p Left popliteal artery to common plantar artery bypass using nonreversed great saphenous vein harvested from the left thigh endoscopically 01/13/19 -s/p left 4th toe amputation 01/14/19 -will be maintained on aspirin and eliquis skilled nursing 2. Severe left lower extremity pain secondary to #1 3. Newly diagnosed Atrial fibrillation with rapid ventricular response -still with suboptimal control on amiodarone drip -metoprolol wasn't given 2/2 NPO status,will give one time IV dose now and also hydrate -patient on heparin drip, to be transitioned to Eliquis 4. Chronic hypochromic anemia: Stable, secondary to iron deficiency 5. Dyslipidemia with a low HDL 6. Poorly controlled diabetes mellitus with hemoglobin A1c of 10 -adjust insulin dosing for optimal control Dispo: -continue monitoring in ICU for now till mentation is improved -PT eval -continue all other critical care support. -plan of care was discussed extensively with patient's son CRITICAL CARE TIME: >35 mins of which more than half was spent at the bedside and during counselling Result Diagram: 01/14/19 0500 01/14/19 0441 Results 24hrs Laboratory Tests Test 01/13/19 14:42 01/13/19 16:18 01/13/19 18:14 01/13/19 19:54 Bedside Glucose 224 H 199 225 H Vancomycin Level 9.6 L Trough Test 01/13/19 20:50 01/14/19 01:38 01/14/19 04:27 01/14/19 04:29 Bedside Glucose 232 H 213 Phosphorus Level 4.0 Magnesium Level 1.9 White Blood Count 8.2 # Red Blood Count 2.52 #L Hemoglobin 6.3 #*L Hematocrit 20.6 #L Mean Corpuscular 81.7 L Volume Mean Corpuscular 25.0 L Hemoglobin Mean Corpuscular 30.6 L Hemoglobin Concent Red Cell 14.6 H Distribution Width Platelet Count 267 # Mean Platelet Volume 10.0 Immature 0.200 Granulocytes % Neutrophils % 74.8 Segmented 80 H Neutrophils % (Manual) Band Neutrophils % 2 (Manual) Lymphocytes % 14.4 L Lymphocytes % 15 (Manual) Monocytes % 9.8 Monocytes % (Manual) 3 Eosinophils % 0.2 Basophils % 0.6 Nucleated Red Blood 0.0 Cells % Immature 0.020 Granulocytes # Neutrophils # 6.1 Neutrophils # 6.6 (Manual) Band Neutrophils # 0.1 Lymphocytes (Manual) 1.2 Lymphocytes # 1.2 Monocytes # 0.8 Monocytes # (Manual) 0.2 L Eosinophils # 0.0 Basophils # 0.1 Nucleated Red Blood 0.0 Cells # Platelet Estimate NORMAL Polychromasia 2+ Poikilocytosis 1+ Anisocytosis 1+ Microcytosis 1+ Spherocytes 1+ Test 01/14/19 04:41 01/14/19 05:00 Sodium Level 139 Potassium Level 4.2 Chloride Level 106 Carbon Dioxide Level 24 Anion Gap 9 Blood Urea Nitrogen 18 Creatinine 1.24 Est Glomerular 59 L Filtrat Rate mL/min Glucose Level 198 Calcium Level 8.6 Hemoglobin 8.8 #L Hematocrit 28.5 #L Exam/Review of Systems Exam Vitals Vital Signs Date Temp Pulse Resp B/P (MAP) Pulse Ox O2 O2 Flow FiO2 Time Delivery Rate 01/14/19 118 15 130/66 97 10:00 (87) 01/14/19 Nasal 6.0 08:00 Cannula 01/14/19 98.4 04:00 Intake and Output 01/13/19 01/13/19 01/14/19 1515:00 23:00 07:00 IntakeIntake Total 2130 ml 643.066 ml 409.90 ml OutputOutput Total 950 ml 1025 ml 695 ml BalanceBalance 1180 ml -381.934 ml -285.10 ml Results Results 24hrs Laboratory Tests Test 01/13/19 14:42 01/13/19 16:18 01/13/19 18:14 01/13/19 19:54 Bedside Glucose 224 H 199 225 H Vancomycin Level 9.6 L Trough Test 01/13/19 20:50 01/14/19 01:38 01/14/19 04:27 01/14/19 04:29 Bedside Glucose 232 H 213 Phosphorus Level 4.0 Magnesium Level 1.9 White Blood Count 8.2 # Red Blood Count 2.52 #L Hemoglobin 6.3 #*L Hematocrit 20.6 #L Mean Corpuscular 81.7 L Volume Mean Corpuscular 25.0 L Hemoglobin Mean Corpuscular 30.6 L Hemoglobin Concent Red Cell 14.6 H Distribution Width Platelet Count 267 # Mean Platelet Volume 10.0 Immature 0.200 Granulocytes % Neutrophils % 74.8 Segmented 80 H Neutrophils % (Manual) Band Neutrophils % 2 (Manual) Lymphocytes % 14.4 L Lymphocytes % 15 (Manual) Monocytes % 9.8 Monocytes % (Manual) 3 Eosinophils % 0.2 Basophils % 0.6 Nucleated Red Blood 0.0 Cells % Immature 0.020 Granulocytes # Neutrophils # 6.1 Neutrophils # 6.6 (Manual) Band Neutrophils # 0.1 Lymphocytes (Manual) 1.2 Lymphocytes # 1.2 Monocytes # 0.8 Monocytes # (Manual) 0.2 L Eosinophils # 0.0 Basophils # 0.1 Nucleated Red Blood 0.0 Cells # Platelet Estimate NORMAL Polychromasia 2+ Poikilocytosis 1+ Anisocytosis 1+ Microcytosis 1+ Spherocytes 1+ Test 01/14/19 04:41 01/14/19 05:00 Sodium Level 139 Potassium Level 4.2 Chloride Level 106 Carbon Dioxide Level 24 Anion Gap 9 Blood Urea Nitrogen 18 Creatinine 1.24 Est Glomerular 59 L Filtrat Rate mL/min Glucose Level 198 Calcium Level 8.6 Hemoglobin 8.8 #L Hematocrit 28.5 #L Medications Medication Current Medications Morphine Sulfate (morphine) 4 mg Q3 PRN IV severe pain Last administered on 01/13/19at 05:07; Admin Dose 4 MG; Start 01/11/19 at 19:00 IV Flush (NS 3 ml) 3 ml PER PROTOCOL IV ; Start 01/11/19 at 20:30 Ondansetron HCl (Zofran Inj) 4 mg Q6H PRN IV NAUSEA/VOMITING; Start 01/11/19 at 20:30 Acetaminophen (Tylenol Tab) 650 mg Q6H PRN PO .PAIN 1-3 OR TEMP; Start 01/11/19 at 20:30 Docusate Sodium (Colace) 100 mg Q12H PRN PO .CONSTIPATION; Start 01/11/19 at 20:30 Bisacodyl (Dulcolax) 5 mg DAILY PRN PO .CONSTIPATION; Start 01/11/19 at 20:30 Furosemide (Lasix) 20 mg DAILY IV Last administered on 01/12/19at 08:34; Admin Dose 20 MG; Start 01/12/19 at 09:00 Hydromorphone HCl (Dilaudid) 1 mg Q4H PRN IV SEVERE PAIN LEVEL 7-10 Last administered on 01/14/19at 04:26; Admin Dose 1 MG; Start 01/11/19 at 22:30 Vancomycin HCl (Vanco Iv Per Pharmacy) VANCOMYCIN PER PHARMACY PER PROTOCOL XX ; Start 01/12/19 at 07:30 Piperacillin Sod/ Tazobactam Sod 100 ml @ 200 mls/hr Q6 IVPB Last administered on 01/14/19at 05:30; Admin Dose 200 MLS/HR; Start 01/12/19 at 08:00 Diagnostic Test (Pha) (Accu-Chek) 1 ea 02 XX Last administered on 01/14/19at 01:50; Admin Dose 1 EA; Start 01/13/19 at 02:00 Insulin Glargine (Lantus) 16 units DAILY@2000 SC Last administered on 01/13/19at 19:55; Admin Dose 16 UNITS; Start 01/12/19 at 20:00 Insulin Aspart (Novolog Insulin Pen) 5 unit WITH MEALS SC Last administered on 01/12/19at 18:00; Admin Dose 5 UNIT; Start 01/12/19 at 12:00 Ferric Sodium Gluconate Complex 125 mg/Sodium Chloride 110 ml @ 110 mls/hr DAILY@1300 IVPB Last administered on 01/12/19at 14:25; Admin Dose 110 MLS/HR; Start 01/12/19 at 13:00; Stop 01/16/19 at 13:59 Morphine Sulfate (Ms Contin (Er)) 15 mg BID PO Last administered on 01/13/19at 16:59; Admin Dose 15 MG; Start 01/12/19 at 11:00 Docusate Sodium (Colace) 250 mg DAILY PO Last administered on 01/12/19at 11:51; Admin Dose 250 MG; Start 01/12/19 at 11:00 Miscellaneous Information 1 ea NOTE XX ; Start 01/12/19 at 11:00 Glucose (Glutose) 15 gm Q15M PRN PO DECREASED GLUCOSE; Start 01/12/19 at 11:00 Glucose (Glutose) 22.5 gm Q15M PRN PO DECREASED GLUCOSE; Start 01/12/19 at 11:00 Dextrose (D50w Syringe) 25 ml Q15M PRN IV DECREASED GLUCOSE; Start 01/12/19 at 11:00 Dextrose (D50w Syringe) 50 ml Q15M PRN IV DECREASED GLUCOSE; Start 01/12/19 at 11:00 Glucagon (Glucagen) 1 mg Q15M PRN IM DECREASED GLUCOSE; Start 01/12/19 at 11:00 Glucose (Glutose) 15 gm Q15M PRN BUCCAL DECREASED GLUCOSE; Start 01/12/19 at 11:00 Atorvastatin Calcium (Lipitor) 40 mg HS PO Last administered on 01/13/19at 20:49; Admin Dose 40 MG; Start 01/12/19 at 21:00 Nicardipine HCl 50 mg/Sodium Chloride 500 ml @ 50 mls/hr TITRATE IV Last administered on 01/13/19at 13:24; Admin Dose 50 MLS/HR; Start 01/13/19 at 13:00 Aspirin (Aspirin) 325 mg DAILY PO Last administered on 01/13/19at 13:59; Admin Dose 325 MG; Start 01/13/19 at 11:30 Amiodarone HCl 900 mg/Dextrose 500 ml @ 0 mls/hr Q0M IV Last administered on 01/13/19at 19:32; Admin Dose 33.3 MLS/HR; Start 01/13/19 at 18:00; Stop 01/14/19 at 17:59 Metoprolol Tartrate (Lopressor) 50 mg Q6 PO Last administered on 01/13/19at 23:22; Admin Dose 50 MG; Start 01/14/19 at 00:00 Vancomycin HCl 1.25 gm/Sodium Chloride 250 ml @ 83.333 mls/ hr Q12H IVPB Last administered on 01/13/19at 20:25; Admin Dose 83.333 MLS/HR; Start 01/13/19 at 21:00 Insulin Aspart (Novolog Insulin Pen) NOVOLOG *MODERATE* ALGORITHM WITH MEALS BEDTIME SC ; Start 01/14/19 at 07:35 Apixaban (Eliquis) 5 mg BID PO ; Start 01/14/19 at 09:00 Labetalol HCl (Labetalol) 10 mg ONCE ONCE IV ; Start 01/14/19 at 10:30; Stop 01/14/19 at 10:31 Magnesium Sulfate/ Dextrose 100 ml @ 100 mls/hr ONCE ONCE IVPB ; Start 01/14/19 at 10:30; Stop 01/14/19 at 11:29 Sodium Chloride 500 ml @ 500 mls/hr Q1H ONCE IV ; Start 01/14/19 at 10:30; Stop 01/14/19 at 11:29 Sodium Chloride 1,000 ml @ 75 mls/hr [id number] IV ; Start 01/14/19 at 10:30; Stop 01/14/19 at 23:49 BERKLEY MENDEZ January 14, 2019 10:17
[2019-01-14] MEDS ORDERED: SOD CHLORIDE 0.9% 500 ML IV ONE (10:30)
[2019-01-14] MEDS ORDERED: LABETALOL HCL 20MG INJ IV ONE (10:30)
[2019-01-14] MEDS ORDERED: SOD CHLORIDE 0.9% 1,000 ML IV SCH (10:30)
[2019-01-14] MEDS ORDERED: MAGNESIUM SULFATE 1 GM/D5W 100 ML IVPB ONE (10:30)
[2019-01-14] MEDS: APIXABAN 5 MG TABLET PO SCH ×2 (10:31→20:40)
[2019-01-14] MEDS: ASPIRIN 325 MG TAB PO SCH (10:31)
[2019-01-14] MEDS: VANCOMYCIN HCL 1.25 GM in SOD CHLORIDE 0.9% 250 ML IVPB SCH ×2 (10:32→20:41)
[2019-01-14] MEDS: morphine (ER) 15 MG TAB PO SCH ×2 (10:38→20:40)
--- NOTE | 2019-01-14 11:41 | PAC ---
Date/Time of Note Date/Time of Note DATE: 01/14/19 TIME: 11:41 Post-Anesthesia Notes Post-Anesthesia Note Last documented vital signs Vital Signs Date Temp Pulse Resp B/P (MAP) Pulse Ox O2 O2 Flow FiO2 Time Delivery Rate 01/14/19 98.2 10:51 01/14/19 98.1 118 15 130/66 97 10:00 (87) 01/14/19 Nasal 6.0 08:00 Cannula Activity: WNL Respiratory function: WNL Cardiovascular function: WNL Mental status: Baseline Pain reasonably controlled: Yes Hydration appropriate: Yes Nausea/Vomiting absent: No COLE OLIVIER MD January 14, 2019 11:41
[2019-01-14] MEDS: DAKINS 0.0125%(1/40) 473 ML SOLUTION TP SCH (12:47)
[2019-01-14] MEDS: SOD FERRIC GLUC COMPLX 125 MG in SOD CHLORIDE 0.9% 100 ML IVPB SCH (13:00)
--- NOTE | 2019-01-14 13:23 | HPN ---
Date/Time of Note Date/Time of Note DATE: 01/14/19 TIME: 13:23 Interval H&P Admission Note Pt. seen H&P reviewed: No system changes AKIL BUCIO DPM January 14, 2019 13:23
--- NOTE | 2019-01-14 13:42 | CONS ---
Assessment/Plan Assessment/Plan Hospital Course (Demo Recall) New onset atrial fibrillation with rapid ventricular rates, currently sinus LVEF 50-55% Critical limb ischemia with gangrene s/p surgical revascularization 01/13/19 and debridement on 01/14/2019 Diabetes, uncontrolled Hypertension Dyslipidemia Peripheral arterial disease Patient with recurrent atrial ablation yesterday evening, restarted IV amiodarone. He is currently back in sinus rhythm. We will continue IV and on the current time with plans of transitioning to p.o. in the next 24 hours Blood pressure lower side, will decrease dose of beta-timmy Continue statin therapy Patient has been switched over to Eliquis from IV heparin Consultation Date/Type/Reason Admit Date/Time January 11, 2019 at 18:31 Initial Consult Date 01/12/19 Type of Consult Cardiology Date/Time of Note DATE: 01/14/19 TIME: 13:40 24 HR Interval Summary Free Text/Dictation Patient seen and examined. Discussed with nursing staff, patient converted to sinus rhythm after coming back from operating room. Response to IV labetalol Exam/Review of Systems Vital Signs Vitals Vital Signs Date Temp Pulse Resp B/P (MAP) Pulse Ox O2 O2 Flow FiO2 Time Delivery Rate 01/14/19 2.0 12:07 01/14/19 98.2 10:51 01/14/19 118 15 130/66 97 10:00 (87) 01/14/19 Nasal 08:00 Cannula Intake and Output 01/13/19 01/13/19 01/14/19 1515:00 23:00 07:00 IntakeIntake Total 2130 ml 643.066 ml 409.90 ml OutputOutput Total 950 ml 1025 ml 695 ml BalanceBalance 1180 ml -381.934 ml -285.10 ml Exam Exam Sleeping but arousable, no apparent distress Head: normocephalic Respiratory: other (Coarse breath sounds bilaterally, no wheezing) Cardiovascular: regular rate and rhythm (S1-S2 heard) Gastrointestinal: soft, non-tender, bowel sounds Extremities: other (Bandage lower extremity) Labs Result Diagram: 01/14/19 0500 01/14/19 0441 Results 24hrs Laboratory Tests Test 01/13/19 14:42 01/13/19 16:18 01/13/19 18:14 01/13/19 19:54 Bedside Glucose 224 H 199 225 H Vancomycin Level 9.6 L Trough Test 01/13/19 20:50 01/14/19 01:38 01/14/19 04:27 01/14/19 04:29 Bedside Glucose 232 H 213 Phosphorus Level 4.0 Magnesium Level 1.9 White Blood Count 8.2 # Red Blood Count 2.52 #L Hemoglobin 6.3 #*L Hematocrit 20.6 #L Mean Corpuscular 81.7 L Volume Mean Corpuscular 25.0 L Hemoglobin Mean Corpuscular 30.6 L Hemoglobin Concent Red Cell 14.6 H Distribution Width Platelet Count 267 # Mean Platelet Volume 10.0 Immature 0.200 Granulocytes % Neutrophils % 74.8 Segmented 80 H Neutrophils % (Manual) Band Neutrophils % 2 (Manual) Lymphocytes % 14.4 L Lymphocytes % 15 (Manual) Monocytes % 9.8 Monocytes % (Manual) 3 Eosinophils % 0.2 Basophils % 0.6 Nucleated Red Blood 0.0 Cells % Immature 0.020 Granulocytes # Neutrophils # 6.1 Neutrophils # 6.6 (Manual) Band Neutrophils # 0.1 Lymphocytes (Manual) 1.2 Lymphocytes # 1.2 Monocytes # 0.8 Monocytes # (Manual) 0.2 L Eosinophils # 0.0 Basophils # 0.1 Nucleated Red Blood 0.0 Cells # Platelet Estimate NORMAL Polychromasia 2+ Poikilocytosis 1+ Anisocytosis 1+ Microcytosis 1+ Spherocytes 1+ Test 01/14/19 04:41 01/14/19 05:00 01/14/19 12:54 Sodium Level 139 Potassium Level 4.2 Chloride Level 106 Carbon Dioxide Level 24 Anion Gap 9 Blood Urea Nitrogen 18 Creatinine 1.24 Est Glomerular 59 L Filtrat Rate mL/min Glucose Level 198 Calcium Level 8.6 Hemoglobin 8.8 #L Hematocrit 28.5 #L Bedside Glucose 249 H Medications Medications Current Medications Morphine Sulfate (morphine) 4 mg Q3 PRN IV severe pain Last administered on 01/13/19at 05:07; Admin Dose 4 MG; Start 01/11/19 at 19:00 IV Flush (NS 3 ml) 3 ml PER PROTOCOL IV ; Start 01/11/19 at 20:30 Ondansetron HCl (Zofran Inj) 4 mg Q6H PRN IV NAUSEA/VOMITING; Start 01/11/19 at 20:30 Acetaminophen (Tylenol Tab) 650 mg Q6H PRN PO .PAIN 1-3 OR TEMP; Start 01/11/19 at 20:30 Docusate Sodium (Colace) 100 mg Q12H PRN PO .CONSTIPATION; Start 01/11/19 at 20 :30 Bisacodyl (Dulcolax) 5 mg DAILY PRN PO .CONSTIPATION; Start 01/11/19 at 20:30 Furosemide (Lasix) 20 mg DAILY IV Last administered on 01/12/19 08:34; Admin Dose 20 MG; Start 01/12/19 at 09:00 Hydromorphone HCl (Dilaudid) 1 mg Q4H PRN IV SEVERE PAIN LEVEL 7-10 Last administered on 01/14/19 11:45; Admin Dose 1 MG; Start 01/11/19 at 22:30 Vancomycin HCl (Vanco Iv Per Pharmacy) VANCOMYCIN PER PHARMACY PER PROTOCOL XX ; Start 01/12/19 at 07:30 Piperacillin Sod/ Tazobactam Sod 100 ml @ 200 mls/hr Q6 IVPB Last administered on 01/14/19 05:30; Admin Dose 200 MLS/HR; Start 01/12/19 at 08:00 Diagnostic Test (Pha) (Accu-Chek) 1 ea 02 XX Last administered on 01/14/19 01:50; Admin Dose 1 EA; Start 01/13/19 at 02:00 Insulin Glargine (Lantus) 16 units DAILY@2000 SC Last administered on 01/13/19 19:55; Admin Dose 16 UNITS; Start 01/12/19 at 20:00 Insulin Aspart (Novolog Insulin Pen) 5 unit WITH MEALS SC Last administered on 01/12/19 18:00; Admin Dose 5 UNIT; Start 01/12/19 at 12:00 Ferric Sodium Gluconate Complex 125 mg/Sodium Chloride 110 ml @ 110 mls/hr DAILY@1300 IVPB Last administered on 01/12/19 14:25; Admin Dose 110 MLS/HR; Start 01/12/19 at 13:00; Stop 01/16/19 at 13:59 Morphine Sulfate (Ms Contin (Er)) 15 mg BID PO Last administered on 01/14/19 10:38; Admin Dose 15 MG; Start 01/12/19 at 11:00 Docusate Sodium (Colace) 250 mg DAILY PO Last administered on 5/29/19at 11:51; Admin Dose 250 MG; Start 01/12/19 at 11:00 Miscellaneous Information 1 ea NOTE XX ; Start 01/12/19 at 11:00 Glucose (Glutose) 15 gm Q15M PRN PO DECREASED GLUCOSE; Start 01/12/19 at 11:00 Glucose (Glutose) 22.5 gm Q15M PRN PO DECREASED GLUCOSE; Start 01/12/19 at 11:00 Dextrose (D50w Syringe) 25 ml Q15M PRN IV DECREASED GLUCOSE; Start 01/12/19 at 11:00 Dextrose (D50w Syringe) 50 ml Q15M PRN IV DECREASED GLUCOSE; Start 01/12/19 at 11:00 Glucagon (Glucagen) 1 mg Q15M PRN IM DECREASED GLUCOSE; Start 01/12/19 at 11:00 Glucose (Glutose) 15 gm Q15M PRN BUCCAL DECREASED GLUCOSE; Start 01/12/19 at 11:00 Atorvastatin Calcium (Lipitor) 40 mg HS PO Last administered on 01/13/19at 20:49; Admin Dose 40 MG; Start 01/12/19 at 21:00 Nicardipine HCl 50 mg/Sodium Chloride 500 ml @ 50 mls/hr TITRATE IV Last administered on 01/13/19 13:24; Admin Dose 50 MLS/HR; Start 01/13/19 at 13:00 Aspirin (Aspirin) 325 mg DAILY PO Last administered on 01/14/19 10:31; Admin Dose 325 MG; Start 01/13/19 at 11:30 Metoprolol Tartrate (Lopressor) 50 mg Q6 PO Last administered on 01/13/19at 23:22; Admin Dose 50 MG; Start 01/14/19 at 00:00 Vancomycin HCl 1.25 gm/Sodium Chloride 250 ml @ 83.333 mls/ hr Q12H IVPB Last administered on 01/14/19 10:32; Admin Dose 83.333 MLS/HR; Start 01/13/19 at 21:00 Insulin Aspart (Novolog Insulin Pen) NOVOLOG *MODERATE* ALGORITHM WITH MEALS BEDTIME SC Last administered on 01/14/19 13:00; Admin Dose 6 UNIT; Start 01/14/19 at 07:35 Apixaban (Eliquis) 5 mg BID PO Last administered on 01/14/19 10:31; Admin Dose 5 MG; Start 01/14/19 at 09:00 Sodium Chloride 1,000 ml @ 75 mls/hr [id number] IV Last administered on 01/14/19at 10:38; Admin Dose 75 MLS/HR; Start 01/14/19 at 10:30; Stop 01/14/19 at 23:49 Sodium Hypochlorite (Dakins Diluted ()) 1 applic DAILY TP ; Start 01/14/19 at 13:00 Amiodarone HCl 900 mg/Dextrose 500 ml @ 16.67 mls/ hr Q24H IV ; Start 01/14/19 at 14:00 Buddy Otto DO January 14, 2019 13:42
[2019-01-14] MEDS ORDERED: AMIODARONE 900 MG in DEXTROSE 5% 482 ML IV SCH (14:00)
[2019-01-14] MEDS: METOPROLOL 25 MG TAB PO SCH ×2 (17:53→23:58)
[2019-01-14] MEDS: INSULIN GLARGINE [LANTus] (100 UNITS/ML) SYG SC SCH (19:41)
[2019-01-14] MEDS: ATORVASTATIN 40 MG TAB PO SCH (20:40)
[2019-01-15] VITALS (20 sets, daily range): BP systolic 98–139; BP diastolic 47–83; PULSE 74–90; RESP 15–24
[2019-01-15] MEDS: ACCU-CHEK XX SCH (02:23)
[2019-01-15] MEDS: PIPER-TAZO 3.375 GM IV (PMX) 100 ML IVPB SCH ×3 (05:42→18:02)
[2019-01-15] MEDS: METOPROLOL 25 MG TAB PO SCH ×3 (05:43→18:11)
[2019-01-15] MEDS: HYDROmorphONE 1 MG/ML SYG IV PRN ×3 (06:42→16:37)
--- NOTE | 2019-01-15 06:46 | CONS ---
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 will try to contact his primary MD to see if cultures were done and what antibiotics he had been on 01/13 - ESR elevated at 85 continue with vanco/zosyn contacted primary MD and pt was given oral keflex in late november, will try to contact financial services professional 01/15 - pt was never seen by financial services professional but was seen by vascular surgeon can not find evidence that pt had been on antibiotics [employer] pt is s/p L pop-plantar artery bypass and then s/p 4th toe amputation 5th toe and forefoot area of gangrene had not been demarcated cx from amputation surgery has GNR and GPC continue with vanco/zosyn 2) DM his HgbA1C is elevated 3) increase in creatinine 01/15 - pt has good urine output continue to monitor may need to adjust antibiotics if creatinine continues to worsen Consultation Date/Type/Reason Admit Date/Time January 11, 2019 at 18:31 Initial Consult Date 01/12/19 Type of Consult ID Date/Time of Note DATE: 01/15/19 TIME: 06:42 24 HR Interval Summary Free Text/Dictation pt has pain to foot he states his breathing is not so good but no cough no N, V Exam/Review of Systems Exam Vitals Vital Signs Date Temp Pulse Resp B/P (MAP) Pulse Ox O2 O2 Flow FiO2 Time Delivery Rate 01/15/19 83 21 122/64 97 Nasal 6.0 06:12 (83) Cannula 01/15/19 98.3 04:00 Intake and Output 01/14/19 01/14/19 01/15/19 1515:00 23:00 07:00 IntakeIntake Total 2051.61 ml 850.026 ml 515.024 ml OutputOutput Total 2005 ml 650 ml 440 ml BalanceBalance 46.61 ml 200.026 ml 75.024 ml Constitutional: alert, oriented ENMT: mucosa pink and moist Respiratory: clear to auscultation Cardiovascular: regular rate and rhythm Gastrointestinal: soft, non-tender Extremities: other (L leg is wrapped, toes are warm to touch) Results Result Diagram: 01/15/19 0500 01/15/19 0500 Results 24hrs Laboratory Tests Test 01/14/19 12:54 01/14/19 18:14 01/14/19 19:38 01/14/19 20:42 Bedside Glucose 249 H 232 H 210 188 Test 01/15/19 02:23 01/15/19 05:00 Bedside Glucose 178 White Blood Count 11.3 #H Red Blood Count 3.27 #L Hemoglobin 8.1 L Hematocrit 27.2 L Mean Corpuscular 83.2 Volume Mean Corpuscular 24.8 L Hemoglobin Mean Corpuscular 29.8 L Hemoglobin Concent Red Cell 14.9 H Distribution Width Platelet Count 338 # Mean Platelet Volume 9.8 Immature 0.500 H Granulocytes % Neutrophils % 71.0 Lymphocytes % 14.4 L Monocytes % 11.5 H Eosinophils % 1.8 Basophils % 0.8 Nucleated Red Blood 0.0 Cells % Immature 0.060 H Granulocytes # Neutrophils # 8.1 H Lymphocytes # 1.6 Monocytes # 1.3 H Eosinophils # 0.2 Basophils # 0.1 Nucleated Red Blood 0.0 Cells # Sodium Level 138 Potassium Level 4.1 Chloride Level 107 Carbon Dioxide Level 22 Anion Gap 9 Blood Urea Nitrogen 22 H Creatinine 1.47 H Est Glomerular 48 L Filtrat Rate mL/min Glucose Level 184 Calcium Level 8.1 L Medications Medication Current Medications Morphine Sulfate (morphine) 4 mg Q3 PRN IV severe pain Last administered on 01/13/19at 05:07; Admin Dose 4 MG; Start 01/11/19 at 19:00 IV Flush (NS 3 ml) 3 ml PER PROTOCOL IV ; Start 01/11/19 at 20:30 Ondansetron HCl (Zofran Inj) 4 mg Q6H PRN IV NAUSEA/VOMITING; Start 01/11/19 at 20:30 Acetaminophen (Tylenol Tab) 650 mg Q6H PRN PO .PAIN 1-3 OR TEMP; Start 01/11/19 at 20:30 Docusate Sodium (Colace) 100 mg Q12H PRN PO .CONSTIPATION; Start 01/11/19 at 20:30 Bisacodyl (Dulcolax) 5 mg DAILY PRN PO .CONSTIPATION; Start 01/11/19 at 20:30 Furosemide (Lasix) 20 mg DAILY IV Last administered on 01/12/19 08:34; Admin Dose 20 MG; Start 01/12/19 at 09:00 Hydromorphone HCl (Dilaudid) 1 mg Q4H PRN IV SEVERE PAIN LEVEL 7-10 Last administered on 01/14/19 11:45; Admin Dose 1 MG; Start 01/11/19 at 22:30 Vancomycin HCl (Vanco Iv Per Pharmacy) VANCOMYCIN PER PHARMACY PER PROTOCOL XX ; Start 01/12/19 at 07:30 Piperacillin Sod/ Tazobactam Sod 100 ml @ 200 mls/hr Q6 IVPB Last administered on 01/15/19 05:42; Admin Dose 200 MLS/HR; Start 01/12/19 at 08:00 Diagnostic Test (Pha) (Accu-Chek) 1 ea 02 XX Last administered on 01/15/19 02:23; Admin Dose 1 EA; Start 01/13/19 at 02:00 Insulin Glargine (Lantus) 16 units DAILY@2000 SC Last administered on 01/14/19 19:41; Admin Dose 16 UNITS; Start 01/12/19 at 20:00 Insulin Aspart (Novolog Insulin Pen) 5 unit WITH MEALS SC Last administered on 01/12/19 18:00; Admin Dose 5 UNIT; Start 01/12/19 at 12:00 Ferric Sodium Gluconate Complex 125 mg/Sodium Chloride 110 ml @ 110 mls/hr DAILY@1300 IVPB Last administered on 01/14/19 13:00; Admin Dose 110 MLS/HR; Start 01/12/19 at 13:00; Stop 01/16/19 at 13:59 Morphine Sulfate (Ms Contin (Er)) 15 mg BID PO Last administered on 01/14/19 20:40; Admin Dose 15 MG; Start 01/12/19 at 11:00 Docusate Sodium (Colace) 250 mg DAILY PO Last administered on 01/12/19 11:51; Admin Dose 250 MG; Start 01/12/19 at 11:00 Miscellaneous Information 1 ea NOTE XX ; Start 01/12/19 at 11:00 Glucose (Glutose) 15 gm Q15M PRN PO DECREASED GLUCOSE; Start 01/12/19 at 11:00 Glucose (Glutose) 22.5 gm Q15M PRN PO DECREASED GLUCOSE; Start 01/12/19 at 11:00 Dextrose (D50w Syringe) 25 ml Q15M PRN IV DECREASED GLUCOSE; Start 01/12/19 at 11:00 Dextrose (D50w Syringe) 50 ml Q15M PRN IV DECREASED GLUCOSE; Start 01/12/19 at 11:00 Glucagon (Glucagen) 1 mg Q15M PRN IM DECREASED GLUCOSE; Start 01/12/19 at 11:00 Glucose (Glutose) 15 gm Q15M PRN BUCCAL DECREASED GLUCOSE; Start 01/12/19 at 11:00 Atorvastatin Calcium (Lipitor) 40 mg HS PO Last administered on 01/14/19 20:40; Admin Dose 40 MG; Start 01/12/19 at 21:00 Nicardipine HCl 50 mg/Sodium Chloride 500 ml @ 50 mls/hr TITRATE IV Last administered on 01/13/19 13:24; Admin Dose 50 MLS/HR; Start 01/13/19 at 13:00 Vancomycin HCl 1.25 gm/Sodium Chloride 250 ml @ 83.333 mls/ hr Q12H IVPB Last administered on 01/14/19 20:41; Admin Dose 83.333 MLS/HR; Start 01/13/19 at 21:00 Insulin Aspart (Novolog Insulin Pen) NOVOLOG *MODERATE* ALGORITHM WITH MEALS BEDTIME SC Last administered on 01/14/19 20:46; Admin Dose 1 UNIT; Start 01/14/19 at 07:35 Apixaban (Eliquis) 5 mg BID PO Last administered on 01/14/19 20:40; Admin Dose 5 MG; Start 01/14/19 at 09:00 Sodium Hypochlorite (Dakins Diluted (/40)) 1 applic DAILY TP ; Start 01/14/19 at 13:00 Amiodarone HCl 900 mg/Dextrose 500 ml @ 16.67 mls/ hr Q24H IV Last administered on 01/14/19 14:58; Admin Dose 16.67 MLS/HR; Start 01/14/19 at 14:00 Metoprolol Tartrate (Lopressor) 25 mg Q6 PO Last administered on 01/15/19 05:43; Admin Dose 25 MG; Start 01/14/19 at 18:00 PHANI MCCULLOUGH MD Jan 15, 2019 06:46
[2019-01-15] MEDS: INSULIN ASPART [NOVOLOG] 3 ML PEN SC SCH ×7 (08:00→20:24)
[2019-01-15] MEDS: DOCUSATE SODIUM 250 MG CAP PO SCH (08:31)
[2019-01-15] MEDS: FUROSEMIDE 20 MG INJ IV SCH (08:31)
[2019-01-15] MEDS: morphine (ER) 15 MG TAB PO SCH ×2 (08:32→20:19)
[2019-01-15] MEDS: APIXABAN 5 MG TABLET PO SCH ×2 (08:32→20:19)
--- NOTE | 2019-01-15 09:23 | PN ---
Date/Time of Note Date/Time of Note DATE: 01/15/19 TIME: 09:15 Assessment/Plan VTE Prophylaxis Risk score (from Ns)>0 risk: 8 SCD applied (from Ns): No SCD contraindicated: other Pharmacological prophylaxis: heparin Lines/Catheters [facility] A Line Urinary Cath still in place: Yes Reason Cath still needed: terminal illness/intractable pain Assessment/Plan Assessment/Plan 1. Severe peripheral arterial disease with left 4th toe dry gangrene - Vascular on board and consultation appreciated. s/p Left popliteal artery to common plantar artery bypass using nonreversed great saphenous vein harvested from the left thigh endoscopically 01/13/19 - Podiatry on board and appreciate consultation. s/p left 4th toe amputation 01/14/19 - continue on aspirin and eliquis - pain control - ID consultation appreciated and will continue current antibiotics 2. Atrial fibrillation with RVR - currently controlled on Amiodarone drip - Cardiology on board and appreciate recommendations - On Eliquis and BB 3. Iron deficiency anemia - continue IV iron - hemoglobin stable and no need for transfusions at this time 4. HLD 5. Poorly controlled diabetes mellitus - A1c noted - Continue Lantus and Novolog. will adjust as needed for glucose control 6. JOHNNY - may be ATN 2/2 Vanco - will monitor and change if Cr continues to increase - encouraged PO hydration 7. Disposition - If remains stable, will downgrade to Telemetry Result Diagram: 01/15/19 0500 01/15/19 0500 Results 24hrs Laboratory Tests Test 01/14/19 12:54 01/14/19 18:14 01/14/19 19:38 01/14/19 20:42 Bedside Glucose 249 H 232 H 210 188 Test 01/15/19 02:23 01/15/19 05:00 01/15/19 07:43 Bedside Glucose 178 202 White Blood Count 11.3 #H Red Blood Count 3.27 #L Hemoglobin 8.1 L Hematocrit 27.2 L Mean Corpuscular 83.2 Volume Mean Corpuscular 24.8 L Hemoglobin Mean Corpuscular 29.8 L Hemoglobin Concent Red Cell 14.9 H Distribution Width Platelet Count 338 # Mean Platelet Volume 9.8 Immature 0.500 H Granulocytes % Neutrophils % 71.0 Lymphocytes % 14.4 L Monocytes % 11.5 H Eosinophils % 1.8 Basophils % 0.8 Nucleated Red Blood 0.0 Cells % Immature 0.060 H Granulocytes # Neutrophils # 8.1 H Lymphocytes # 1.6 Monocytes # 1.3 H Eosinophils # 0.2 Basophils # 0.1 Nucleated Red Blood 0.0 Cells # Sodium Level 138 Potassium Level 4.1 Chloride Level 107 Carbon Dioxide Level 22 Anion Gap 9 Blood Urea Nitrogen 22 H Creatinine 1.47 H Est Glomerular 48 L Filtrat Rate mL/min Glucose Level 184 Calcium Level 8.1 L Subjective 24 Hr Interval Summary Free Text/Dictation Patient denies any acute issues. No overnight events. Asking for water. Exam/Review of Systems Exam Vitals Vital Signs Date Temp Pulse Resp B/P (MAP) Pulse Ox O2 O2 Flow FiO2 Time Delivery Rate 01/15/19 77 08:00 01/15/19 15 107/83 97 Nasal 5.0 07:30 (91) Cannula 01/15/19 98.3 04:00 Intake and Output 01/14/19 01/14/19 01/15/19 1515:00 23:00 07:00 IntakeIntake Total 2051.61 ml 850.026 ml 515.024 ml OutputOutput Total 2005 ml 650 ml 480 ml BalanceBalance 46.61 ml 200.026 ml 35.024 ml Exam General: Patient in no acute distress. awake and answering questions appropriately Neck: Supple Lungs: Clear to auscultation bilaterally no crackles rales or wheezing Heart: Normal S1-S2, Regular rhythm and rate. No murmur, S3, or S4 Abdomen: Soft , nontender, nondistended , bowel sounds are present. No guarding no rebound tenderness Extremities: Normal to inspection, no edema no cyanosis Skin: dressing on R foot, no discharge or drainage Results Results 24hrs Laboratory Tests Test 01/14/19 12:54 01/14/19 18:14 01/14/19 19:38 01/14/19 20:42 Bedside Glucose 249 H 232 H 210 188 Test 01/15/19 02:23 01/15/19 05:00 01/15/19 07:43 Bedside Glucose 178 202 White Blood Count 11.3 #H Red Blood Count 3.27 #L Hemoglobin 8.1 L Hematocrit 27.2 L Mean Corpuscular 83.2 Volume Mean Corpuscular 24.8 L Hemoglobin Mean Corpuscular 29.8 L Hemoglobin Concent Red Cell 14.9 H Distribution Width Platelet Count 338 # Mean Platelet Volume 9.8 Immature 0.500 H Granulocytes % Neutrophils % 71.0 Lymphocytes % 14.4 L Monocytes % 11.5 H Eosinophils % 1.8 Basophils % 0.8 Nucleated Red Blood 0.0 Cells % Immature 0.060 H Granulocytes # Neutrophils # 8.1 H Lymphocytes # 1.6 Monocytes # 1.3 H Eosinophils # 0.2 Basophils # 0.1 Nucleated Red Blood 0.0 Cells # Sodium Level 138 Potassium Level 4.1 Chloride Level 107 Carbon Dioxide Level 22 Anion Gap 9 Blood Urea Nitrogen 22 H Creatinine 1.47 H Est Glomerular 48 L Filtrat Rate mL/min Glucose Level 184 Calcium Level 8.1 L Medications Medication Current Medications Morphine Sulfate (morphine) 4 mg Q3 PRN IV severe pain Last administered on 01/13/19at 05:07; Admin Dose 4 MG; Start 01/11/19 at 19:00 IV Flush (NS 3 ml) 3 ml PER PROTOCOL IV ; Start 01/11/19 at 20:30 Ondansetron HCl (Zofran Inj) 4 mg Q6H PRN IV NAUSEA/VOMITING; Start 01/11/19 at 20:30 Acetaminophen (Tylenol Tab) 650 mg Q6H PRN PO .PAIN 1-3 OR TEMP; Start 01/11/19 at 20:30 Docusate Sodium (Colace) 100 mg Q12H PRN PO .CONSTIPATION; Start 01/11/19 at 20:30 Bisacodyl (Dulcolax) 5 mg DAILY PRN PO .CONSTIPATION; Start 01/11/19 at 20:30 Furosemide (Lasix) 20 mg DAILY IV Last administered on 01/15/19at 08:31; Admin Dose 20 MG; Start 01/12/19 at 09:00 Hydromorphone HCl (Dilaudid) 1 mg Q4H PRN IV SEVERE PAIN LEVEL 7-10 Last administered on 01/15/19at 06:42; Admin Dose 1 MG; Start 01/11/19 at 22:30 Vancomycin HCl (Vanco Iv Per Pharmacy) VANCOMYCIN PER PHARMACY PER PROTOCOL XX ; Start 01/12/19 at 07:30 Piperacillin Sod/ Tazobactam Sod 100 ml @ 200 mls/hr Q6 IVPB Last administered on 01/15/19at 05:42; Admin Dose 200 MLS/HR; Start 01/12/19 at 08:00 Diagnostic Test (Pha) (Accu-Chek) 1 ea 02 XX Last administered on 01/15/19at 02:23; Admin Dose 1 EA; Start 01/13/19 at 02:00 Insulin Glargine (Lantus) 16 units DAILY@2000 SC Last administered on 01/14/19at 19:41; Admin Dose 16 UNITS; Start 01/12/19 at 20:00 Insulin Aspart (Novolog Insulin Pen) 5 unit WITH MEALS SC Last administered on 01/15/19at 08:00; Admin Dose 5 UNIT; Start 01/12/19 at 12:00 Ferric Sodium Gluconate Complex 125 mg/Sodium Chloride 110 ml @ 110 mls/hr DAILY@1300 IVPB Last administered on 01/14/19at 13:00; Admin Dose 110 MLS/HR; Start 01/12/19 at 13:00; Stop 01/16/19 at 13:59 Morphine Sulfate (Ms Contin (Er)) 15 mg BID PO Last administered on 01/15/19at 08:32; Admin Dose 15 MG; Start 01/12/19 at 11:00 Docusate Sodium (Colace) 250 mg DAILY PO Last administered on 01/15/19 08:31; Admin Dose 250 MG; Start 01/12/19 at 11:00 Miscellaneous Information 1 ea NOTE XX ; Start 01/12/19 at 11:00 Glucose (Glutose) 15 gm Q15M PRN PO DECREASED GLUCOSE; Start 01/12/19 at 11:00 Glucose (Glutose) 22.5 gm Q15M PRN PO DECREASED GLUCOSE; Start 01/12/19 at 11:00 Dextrose (D50w Syringe) 25 ml Q15M PRN IV DECREASED GLUCOSE; Start 01/12/19 at 11:00 Dextrose (D50w Syringe) 50 ml Q15M PRN IV DECREASED GLUCOSE; Start 01/12/19 at 11:00 Glucagon (Glucagen) 1 mg Q15M PRN IM DECREASED GLUCOSE; Start 01/12/19 at 11:00 Glucose (Glutose) 15 gm Q15M PRN BUCCAL DECREASED GLUCOSE; Start 01/12/19 at 11:00 Atorvastatin Calcium (Lipitor) 40 mg HS PO Last administered on 01/14/19at 2 0:40; Admin Dose 40 MG; Start 01/12/19 at 21:00 Nicardipine HCl 50 mg/Sodium Chloride 500 ml @ 50 mls/hr TITRATE IV Last administered on 01/13/19at 13:24; Admin Dose 50 MLS/HR; Start 01/13/19 at 13:00 Insulin Aspart (Novolog Insulin Pen) NOVOLOG *MODERATE* ALGORITHM WITH MEALS BEDTIME SC Last administered on 01/15/19at 08:01; Admin Dose 4 UNIT; Start 01/14/19 at 07:35 Apixaban (Eliquis) 5 mg BID PO Last administered on 01/15/19at 08:32; Admin Dose 5 MG; Start 01/14/19 at 09:00 Sodium Hypochlorite (Dakins Diluted ()) 1 applic DAILY TP ; Start 01/14/19 at 13:00 Amiodarone HCl 900 mg/Dextrose 500 ml @ 16.67 mls/ hr Q24H IV Last administered on 01/14/19at 14:58; Admin Dose 16.67 MLS/HR; Start 01/14/19 at 14:00 Metoprolol Tartrate (Lopressor) 25 mg Q6 PO Last administered on 01/15/19at 05:4 3; Admin Dose 25 MG; Start 01/14/19 at 18:00 Vancomycin HCl 1.25 gm/Sodium Chloride 250 ml @ 83.333 mls/ hr Q24H IVPB ; Start 01/15/19 at 20:00 EDITH AUGUSTINE MD Jan 15, 2019 09:23
--- NOTE | 2019-01-15 10:08 | CONS ---
Assessment/Plan Assessment/Plan Assessment/Plan (Daily) New onset atrial fibrillation with rapid ventricular rates, currently sinus LVEF 50-55% Critical limb ischemia with gangrene s/p surgical revascularization 01/13/19 and debridement on 01/14/2019 Diabetes, uncontrolled Hypertension Dyslipidemia Peripheral arterial disease Patient with recurrent atrial fibrillation 01/13 restarted IV amiodarone. He is currently back in sinus rhythm. We will transition to p.o. Continue statin therapy Patient has been switched over to Eliquis from IV heparin Consultation Date/Type/Reason Admit Date/Time January 11, 2019 at 18:31 Initial Consult Date 01/12/19 Type of Consult Cardiology Date/Time of Note DATE: 01/15/19 TIME: 10:05 24 HR Interval Summary Free Text/Dictation the patient wwith no compalints Exam/Review of Systems Vital Signs Vitals Vital Signs Date Temp Pulse Resp B/P (MAP) Pulse Ox O2 O2 Flow FiO2 Time Delivery Rate 01/15/19 77 08:00 01/15/19 15 107/83 97 Nasal 5.0 07:30 (91) Cannula 01/15/19 98.3 04:00 Intake and Output 01/14/19 01/14/19 01/15/19 1515:00 23:00 07:00 IntakeIntake Total 2051.61 ml 850.026 ml 515.024 ml OutputOutput Total 2005 ml 650 ml 480 ml BalanceBalance 46.61 ml 200.026 ml 35.024 ml Labs Result Diagram: 01/15/19 0500 01/15/19 0500 Results 24hrs Laboratory Tests Test 01/14/19 12:54 01/14/19 18:14 01/14/19 19:38 01/14/19 20:42 Bedside Glucose 249 H 232 H 210 188 Test 01/15/19 02:23 01/15/19 05:00 01/15/19 07:43 Bedside Glucose 178 202 White Blood Count 11.3 #H Red Blood Count 3.27 #L Hemoglobin 8.1 L Hematocrit 27.2 L Mean Corpuscular 83.2 Volume Mean Corpuscular 24.8 L Hemoglobin Mean Corpuscular 29.8 L Hemoglobin Concent Red Cell 14.9 H Distribution Width Platelet Count 338 # Mean Platelet Volume 9.8 Immature 0.500 H Granulocytes % Neutrophils % 71.0 Lymphocytes % 14.4 L Monocytes % 11.5 H Eosinophils % 1.8 Basophils % 0.8 Nucleated Red Blood 0.0 Cells % Immature 0.060 H Granulocytes # Neutrophils # 8.1 H Lymphocytes # 1.6 Monocytes # 1.3 H Eosinophils # 0.2 Basophils # 0.1 Nucleated Red Blood 0.0 Cells # Sodium Level 138 Potassium Level 4.1 Chloride Level 107 Carbon Dioxide Level 22 Anion Gap 9 Blood Urea Nitrogen 22 H Creatinine 1.47 H Est Glomerular 48 L Filtrat Rate mL/min Glucose Level 184 Calcium Level 8.1 L Medications Medications Current Medications Morphine Sulfate (morphine) 4 mg Q3 PRN IV severe pain Last administered on 01/13/19at 05:07; Admin Dose 4 MG; Start 01/11/19 at 19:00 IV Flush (NS 3 ml) 3 ml PER PROTOCOL IV ; Start 01/11/19 at 20:30 Ondansetron HCl (Zofran Inj) 4 mg Q6H PRN IV NAUSEA/VOMITING; Start 01/11/19 at 20:30 Acetaminophen (Tylenol Tab) 650 mg Q6H PRN PO .PAIN 1-3 OR TEMP; Start 01/11/19 at 20:30 Docusate Sodium (Colace) 100 mg Q12H PRN PO .CONSTIPATION; Start 01/11/19 at 20:30 Bisacodyl (Dulcolax) 5 mg DAILY PRN PO .CONSTIPATION; Start 01/11/19 at 20:30 Furosemide (Lasix) 20 mg DAILY IV Last administered on 01/15/19at 08:31; Admin Dose 20 MG; Start 01/12/19 at 09:00 Hydromorphone HCl (Dilaudid) 1 mg Q4H PRN IV SEVERE PAIN LEVEL 7-10 Last administered on 01/15/19at 06:42; Admin Dose 1 MG; Start 01/11/19 at 22:30 Vancomycin HCl (Vanco Iv Per Pharmacy) VANCOMYCIN PER PHARMACY PER PROTOCOL XX ; Start 01/12/19 at 07:30 Piperacillin Sod/ Tazobactam Sod 100 ml @ 200 mls/hr Q6 IVPB Last administered on 01/15/19at 05:42; Admin Dose 200 MLS/HR; Start 01/12/19 at 08:00 Diagnostic Test (Pha) (Accu-Chek) XX Last administered on 01/15/19at 02:23; Admin Dose 1 EA; Start 01/13/19 at 02:00 Ferric Sodium Gluconate Complex 125 mg/Sodium Chloride 110 ml @ 110 mls/hr DAILY@1300 IVPB Last administered on 01/14/19at 13:00; Admin Dose 110 MLS/HR; Start 01/12/19 at 13:00; Stop 01/16/19 at 13:59 Morphine Sulfate (Ms Contin (Er)) 15 mg BID PO Last administered on 01/15/19at 08:32; Admin Dose 15 MG; Start 01/12/19 at 11:00 Docusate Sodium (Colace) 250 mg DAILY PO Last administered on 01/15/19 08:31; Admin Dose 250 MG; Start 01/12/19 at 11:00 Miscellaneous Information 1 ea NOTE XX ; Start 01/12/19 at 11:00 Glucose (Glutose) 15 gm Q15M PRN PO DECREASED GLUCOSE; Start 01/12/19 at 11:00 Glucose (Glutose) 22.5 gm Q15M PRN PO DECREASED GLUCOSE; Start 01/12/19 at 11:00 Dextrose (D50w Syringe) 25 ml Q15M PRN IV DECREASED GLUCOSE; Start 01/12/19 at 11:00 Dextrose (D50w Syringe) 50 ml Q15M PRN IV DECREASED GLUCOSE; Start 01/12/19 at 11:00 Glucagon (Glucagen) 1 mg Q15M PRN IM DECREASED GLUCOSE; Start 01/12/19 at 11:00 Glucose (Glutose) 15 gm Q15M PRN BUCCAL DECREASED GLUCOSE; Start 01/12/19 at 11:00 Atorvastatin Calcium (Lipitor) 40 mg HS PO Last administered on 01/14/19at 20:40; Admin Dose 40 MG; Start 01/12/19 at 21:00 Insulin Aspart (Novolog Insulin Pen) NOVOLOG *MODERATE* ALGORITHM WITH MEALS BEDTIME SC Last administered on 01/15/19at 08:01; Admin Dose 4 UNIT; Start 01/14/19 at 07:35 Apixaban (Eliquis) 5 mg BID PO Last administered on 01/15/19 08:32; Admin Dose 5 MG; Start 01/14/19 at 09:00 Sodium Hypochlorite (Dakins Diluted ()) 1 applic DAILY TP ; Start 01/14/19 at 13:00 Amiodarone HCl 900 mg/Dextrose 500 ml @ 16.67 mls/ hr Q24H IV Last administered on 01/14/19at 14:58; Admin Dose 16.67 MLS/HR; Start 01/14/19 at 14:00 Metoprolol Tartrate (Lopressor) 25 mg Q6 PO Last administered on 01/15/19at 05:43; Admin Dose 25 MG; Start 01/14/19 at 18:00 Vancomycin HCl 1.25 gm/Sodium Chloride 250 ml @ 83.333 mls/ hr Q24H IVPB ; Start 01/15/19 at 20:00 Insulin Aspart (Novolog Insulin Pen) 7 unit WITH MEALS SC ; Start 01/15/19 at 11:30 Insulin Glargine (Lantus) 18 units DAILY@2000 SC ; Start 01/15/19 at 20:00 AFRICA SIMMONS MD Jan 15, 2019 10:08
[2019-01-15] MEDS: AMIODARONE 200 MG TAB PO SCH ×2 (10:31→20:20)
[2019-01-15] MEDS: DAKINS 0.0125%(1/40) 473 ML SOLUTION TP SCH (10:35)
--- NOTE | 2019-01-15 11:40 | PN ---
Date/Time of Note Date/Time of Note DATE: 01/15/19 TIME: 11:37 Assessment/Plan Lines/Catheters IV Catheter Type (from Nrs): A Line Merrill in Place (from Nrs): Yes Assessment/Plan Assessment/Plan Doing well s/p L pop-PT bypass, graft patent and foot is well perfused In sinus rhythm Continue Eliquis and ASA Further debridement / possible 5th toe amputation next week with Dr. Schwarz OK to tx to tele PT consult - ambulate Subjective 24 Hr Interval Summary No c/o. Exam/Review of Systems Vital Signs Vitals Vital Signs Date Temp Pulse Resp B/P (MAP) Pulse Ox O2 O2 Flow FiO2 Time Delivery Rate 01/15/19 86 24 138/70 95 Nasal 5.0 10:00 (92) Cannula 01/15/19 98.9 08:00 Intake and Output 01/14/19 01/14/19 01/15/19 1515:00 23:00 07:00 IntakeIntake Total 2051.61 ml 850.026 ml 531.694 ml OutputOutput Total 2005 ml 650 ml 480 ml BalanceBalance 46.61 ml 200.026 ml 51.694 ml Exam Free Text/Dictation L leg incisions clean and dry, no staining L foot is warm and hyperemic, 3+ graft pulse in distal calf L leg edema 2+ Results Result Diagram: 01/15/19 0500 01/15/19 0500 NICOLAS SAAB MD Jan 15, 2019 11:40
[2019-01-15] MEDS: SOD FERRIC GLUC COMPLX 125 MG in SOD CHLORIDE 0.9% 100 ML IVPB SCH (15:31)
[2019-01-15] MEDS: morphine 4 MG/ML VIAL IV PRN (18:20)
[2019-01-15] MEDS ORDERED: INSULIN GLARGINE [LANTus] (100 UNITS/ML) SYG SC SCH (20:00)
[2019-01-15] MEDS ORDERED: VANCOMYCIN HCL 1.25 GM in SOD CHLORIDE 0.9% 250 ML IVPB SCH (20:00)
[2019-01-15] MEDS: VANCOMYCIN HCL 1.5 GM in SOD CHLORIDE 0.9% 250 ML IVPB SCH (20:18)
[2019-01-15] MEDS: ATORVASTATIN 40 MG TAB PO SCH (20:18)
[2019-01-16] VITALS (10 sets, daily range): BP systolic 110–158; BP diastolic 60–86; PULSE 75–126; RESP 18–20
[2019-01-16] MEDS: METOPROLOL 25 MG TAB PO SCH ×5 (00:50→23:31)
[2019-01-16] MEDS: PIPER-TAZO 3.375 GM IV (PMX) 100 ML IVPB SCH ×5 (00:50→23:30)
[2019-01-16] MEDS: HYDROmorphONE 1 MG/ML SYG IV PRN ×3 (00:57→11:08)
[2019-01-16] MEDS: ACCU-CHEK XX SCH (01:39)
[2019-01-16] MEDS: morphine 4 MG/ML VIAL IV PRN (04:06)
[2019-01-16] MEDS: FUROSEMIDE 20 MG INJ IV SCH (08:38)
[2019-01-16] MEDS: AMIODARONE 200 MG TAB PO SCH ×2 (08:38→20:23)
[2019-01-16] MEDS: DOCUSATE SODIUM 250 MG CAP PO SCH (08:38)
[2019-01-16] MEDS: APIXABAN 5 MG TABLET PO SCH ×2 (08:38→20:22)
[2019-01-16] MEDS: morphine (ER) 15 MG TAB PO SCH ×2 (08:39→20:23)
[2019-01-16] MEDS: INSULIN ASPART [NOVOLOG] 3 ML PEN SC SCH ×7 (08:47→20:31)
[2019-01-16] MEDS: DAKINS 0.0125%(1/40) 473 ML SOLUTION TP SCH (08:48)
--- NOTE | 2019-01-16 09:23 | CONS ---
Consultation Date/Type/Reason Admit Date/Time January 11, 2019 at 18:31 Initial Consult Date 01/12/19 Type of Consult Cardiology Date/Time of Note DATE: 01/16/19 TIME: 09:22 24 HR Interval Summary Free Text/Dictation ew onset atrial fibrillation with rapid ventricular rates, currently sinus LVEF 50-55% Critical limb ischemia with gangrene s/p surgical revascularization 01/13/19 and debridement on 01/14/2019 Diabetes, uncontrolled Hypertension Dyslipidemia Peripheral arterial disease Patient with recurrent atrial fibrillation 01/13 restarted IV amiodarone. He is currently back in sinus rhythm. switched to PO AMiodaorne to be tapered over course of one month to 200mg daily Continue statin therapy on Eliquis Exam/Review of Systems Vital Signs Vitals Vital Signs Date Temp Pulse Resp B/P (MAP) Pulse Ox O2 O2 Flow FiO2 Time Delivery Rate 01/16/19 79 08:01 01/16/19 97.9 18 119/60 94 07:11 (79) 01/16/19 5.0 04:05 01/16/19 Nasal 04:00 Cannula Intake and Output 01/15/19 01/15/19 01/16/19 1515:00 23:00 07:00 IntakeIntake Total 628.31 ml 260 ml 1000 ml OutputOutput Total 655 ml 110 ml 500 ml BalanceBalance -26.69 ml 150 ml 500 ml Exam Constitutional: alert Respiratory: clear to auscultation Cardiovascular: regular rate and rhythm Labs Result Diagram: 01/16/19 0602 01/16/19 0602 Results 24hrs Laboratory Tests Test 01/15/19 12:17 01/15/19 17:59 01/15/19 20:22 01/16/19 01:38 Bedside Glucose 261 H 179 177 200 Test 01/16/19 06:02 01/16/19 08:37 White Blood Count 11.8 H Red Blood Count 3.25 L Hemoglobin 8.2 L Hematocrit 26.8 L Mean Corpuscular Volume 82.5 Mean Corpuscular 25.2 L Hemoglobin Mean Corpuscular 30.6 L Hemoglobin Concent Red Cell Distribution 14.7 H Width Platelet Count 346 Mean Platelet Volume 9.7 Immature Granulocytes % 0.400 Neutrophils % 73.1 Lymphocytes % 13.4 L Monocytes % 10.7 Eosinophils % 1.8 Basophils % 0.6 Nucleated Red Blood 0.0 Cells % Immature Granulocytes # 0.050 H Neutrophils # 8.6 H Lymphocytes # 1.6 Monocytes # 1.3 H Eosinophils # 0.2 Basophils # 0.1 Nucleated Red Blood 0.0 Cells # Sodium Level 138 Potassium Level 4.2 Chloride Level 105 Carbon Dioxide Level 24 Anion Gap 9 Blood Urea Nitrogen 29 H Creatinine 1.68 H Glucose Level 155 Calcium Level 8.5 Phosphorus Level 4.1 Magnesium Level 2.3 Albumin 3.1 L Bedside Glucose 192 Medications Medications Current Medications Morphine Sulfate (morphine) 4 mg Q3 PRN IV severe pain Last administered on 01/16/19at 04:06; Admin Dose 4 MG; Start 01/11/19 at 19:00 IV Flush (NS 3 ml) 3 ml PER PROTOCOL IV ; Start 01/11/19 at 20:30 Ondansetron HCl (Zofran Inj) 4 mg Q6H PRN IV NAUSEA/VOMITING; Start 01/11/19 at 20:30 Acetaminophen (Tylenol Tab) 650 mg Q6H PRN PO .PAIN 1-3 OR TEMP; Start 01/11/19 at 20:30 Docusate Sodium (Colace) 100 mg Q12H PRN PO .CONSTIPATION; Start 01/11/19 at 20:30 Bisacodyl (Dulcolax) 5 mg DAILY PRN PO .CONSTIPATION; Start 01/11/19 at 20:30 Furosemide (Lasix) 20 mg DAILY IV Last administered on 01/16/19at 08:38; Admin Dose 20 MG; Start 01/12/19 at 09:00 Hydromorphone HCl (Dilaudid) 1 mg Q4H PRN IV SEVERE PAIN LEVEL 7-10 Last administered on 01/16/19at 05:55; Admin Dose 1 MG; Start 01/11/19 at 22:30 Vancomycin HCl (Vanco Iv Per Pharmacy) VANCOMYCIN PER PHARMACY PER PROTOCOL XX ; Start 01/12/19 at 07:30 Piperacillin Sod/ Tazobactam Sod 100 ml @ 200 mls/hr Q6 IVPB Last administered on 01/16/19at 05:55; Admin Dose 200 MLS/HR; Start 01/12/19 at 08:00 Diagnostic Test (Pha) (Accu-Chek) 1 ea 02 XX Last administered on 01/15/19at 02:23; Admin Dose 1 EA; Start 01/13/19 at 02:00 Ferric Sodium Gluconate Complex 125 mg/Sodium Chloride 110 ml @ 110 mls/hr DAILY@1300 IVPB Last administered on 01/15/19at 15:31; Admin Dose 110 MLS/HR; Start 01/12/19 at 13:00; Stop 01/16/19 at 13:59 Morphine Sulfate (Ms Contin (Er)) 15 mg BID PO Last administered on 01/16/19at 08:39; Admin Dose 15 MG; Start 01/12/19 at 11:00 Docusate Sodium (Colace) 250 mg DAILY PO Last administered on 01/16/19 08:38; Admin Dose 250 MG; Start 01/12/19 at 11:00 Miscellaneous Information 1 ea NOTE XX ; Start 01/12/19 at 11:00 Glucose (Glutose) 15 gm Q15M PRN PO DECREASED GLUCOSE; Start 01/12/19 at 11:00 Glucose (Glutose) 22.5 gm Q15M PRN PO DECREASED GLUCOSE; Start 01/12/19 at 11:00 Dextrose (D50w Syringe) 25 ml Q15M PRN IV DECREASED GLUCOSE; Start 01/12/19 at 11:00 Dextrose (D50w Syringe) 50 ml Q15M PRN IV DECREASED GLUCOSE; Start 01/12/19 at 11:00 Glucagon (Glucagen) 1 mg Q15M PRN IM DECREASED GLUCOSE; Start 01/12/19 at 11:00 Glucose (Glutose) 15 gm Q15M PRN BUCCAL DECREASED GLUCOSE; Start 01/12/19 at 11:00 Atorvastatin Calcium (Lipitor) 40 mg HS PO Last administered on 01/15/19at 20:18; Admin Dose 40 MG; Start 01/12/19 at 21:00 Insulin Aspart (Novolog Insulin Pen) NOVOLOG *MODERATE* ALGORITHM WITH MEALS BE DTIME SC Last administered on 01/16/19at 08:47; Admin Dose 4 UNIT; Start 01/14/19 at 07:35 Apixaban (Eliquis) 5 mg BID PO Last administered on 01/16/19 08:38; Admin Dose 5 MG; Start 01/14/19 at 09:00 Sodium Hypochlorite (Dakins Diluted ()) 1 applic DAILY TP Last administered on 01/16/19at 08:48; Admin Dose 1 APPLIC; Start 01/14/19 at 13:00 Metoprolol Tartrate (Lopressor) 25 mg Q6 PO Last administered on 01/16/19at 05:55; Admin Dose 25 MG; Start 01/14/19 at 18:00 Insulin Aspart (Novolog Insulin Pen) 7 unit WITH MEALS SC Last administered on 01/16/19at 08:48; Admin Dose 7 UNIT; Start 01/15/19 at 11:30 Insulin Glargine (Lantus) 18 units DAILY@2000 SC Last administered on 01/15/19at 21:43; Admin Dose 18 UNITS; Start 01/15/19 at 20:00 Amiodarone HCl (Cordarone) 400 mg BID PO Last administered on 01/16/19at 08:38; Admin Dose 400 MG; Start 01/15/19 at 10:30 Vancomycin HCl 1.5 gm/Sodium Chloride 250 ml @ 83.333 mls/ hr Q24H IVPB Last administered on 01/15/19at 20:18; Admin Dose 83.333 MLS/HR; Start 01/15/19 at 20:00 YUDI JACOME MD Jan 16, 2019 09:23
--- NOTE | 2019-01-16 11:54 | PN ---
Date/Time of Note Date/Time of Note DATE: 01/16/19 TIME: 11:48 Assessment/Plan VTE Prophylaxis Risk score (from Ns)>0 risk: 4 SCD applied (from Ns): No SCD contraindicated: other Pharmacological prophylaxis: heparin Lines/Catheters IV Catheter Type (from Nrs): Peripheral IV Urinary Cath still in place: Yes Reason Cath still needed: terminal illness/intractable pain Assessment/Plan Assessment/Plan 1. Severe peripheral arterial disease with left 4th toe dry gangrene - Vascular on board and consultation appreciated. s/p Left popliteal artery to common plantar artery bypass using nonreversed great saphenous vein harvested from the left thigh endoscopically 01/13/19 - Podiatry on board and appreciate consultation. s/p left 4th toe amputation 01/14/19. will continue local wound care and discuss possible further amputation of 5th digit next week - continue on aspirin and eliquis - pain control - ID consultation appreciated and will continue current antibiotics 2. Atrial fibrillation with RVR - currently controlled on Amiodarone PO - Cardiology on board and appreciate recommendations - On Eliquis and BB 3. Iron deficiency anemia - continue IV iron with last dose tomorrow - hemoglobin stable and no need for transfusions at this time 4. HLD 5. Poorly controlled diabetes mellitus - A1c noted - Continue Lantus and Novolog. will adjust as needed for glucose control 6. JOHNNY - may be ATN 2/2 Vanco - per ID will adjust if Cr continues to worsen - encouraged PO hydration 7. Disposition - Continue monitoring renal function and awaiting plans for amputation 5th digit Result Diagram: 01/16/19 0602 01/16/19 0602 Results 24hrs Laboratory Tests Test 01/15/19 12:17 01/15/19 17:59 01/15/19 20:22 01/16/19 01:38 Bedside Glucose 261 H 179 177 200 Test 01/16/19 06:02 01/16/19 08:37 White Blood Count 11.8 H Red Blood Count 3.25 L Hemoglobin 8.2 L Hematocrit 26.8 L Mean Corpuscular Volume 82.5 Mean Corpuscular 25.2 L Hemoglobin Mean Corpuscular 30.6 L Hemoglobin Concent Red Cell Distribution 14.7 H Width Platelet Count 346 Mean Platelet Volume 9.7 Immature Granulocytes % 0.400 Neutrophils % 73.1 Lymphocytes % 13.4 L Monocytes % 10.7 Eosinophils % 1.8 Basophils % 0.6 Nucleated Red Blood 0.0 Cells % Immature Granulocytes # 0.050 H Neutrophils # 8.6 H Lymphocytes # 1.6 Monocytes # 1.3 H Eosinophils # 0.2 Basophils # 0.1 Nucleated Red Blood 0.0 Cells # Sodium Level 138 Potassium Level 4.2 Chloride Level 105 Carbon Dioxide Level 24 Anion Gap 9 Blood Urea Nitrogen 29 H Creatinine 1.68 H Glucose Level 155 Calcium Level 8.5 Phosphorus Level 4.1 Magnesium Level 2.3 Albumin 3.1 L Bedside Glucose 192 Subjective 24 Hr Interval Summary Free Text/Dictation Patient complains of pain in foot. Also states has not had a BM in 6 days but concerned about needing to move to have a BM. Has not been eating well since reluctant to have a BM. No acute overnight events. Exam/Review of Systems Exam Vitals Vital Signs Date Temp Pulse Resp B/P (MAP) Pulse Ox O2 O2 Flow FiO2 Time Delivery Rate 01/16/19 98.2 75 20 158/83 96 Room Air 11:31 (108) 01/16/19 5.0 04:05 Intake and Output 01/15/19 01/15/19 01/16/19 1515:00 23:00 07:00 IntakeIntake Total 628.31 ml 260 ml 1000 ml OutputOutput Total 655 ml 110 ml 500 ml BalanceBalance -26.69 ml 150 ml 500 ml Exam General: Patient in no acute distress. awake and answering questions appropriately Neck: Supple Lungs: Clear to auscultation bilaterally no crackles rales or wheezing Heart: Normal S1-S2, Regular rhythm and rate. No murmur, S3, or S4 Abdomen: Soft , nontender, nondistended , bowel sounds are present. No guarding no rebound tenderness Extremities: Normal to inspection, no edema no cyanosis Skin: dressing on R foot, no discharge or drainage Results Results 24hrs Laboratory Tests Test 01/15/19 12:17 01/15/19 17:59 01/15/19 20:22 01/16/19 01:38 Bedside Glucose 261 H 179 177 200 Test 01/16/19 06:02 01/16/19 08:37 White Blood Count 11.8 H Red Blood Count 3.25 L Hemoglobin 8.2 L Hematocrit 26.8 L Mean Corpuscular Volume 82.5 Mean Corpuscular 25.2 L Hemoglobin Mean Corpuscular 30.6 L Hemoglobin Concent Red Cell Distribution 14.7 H Width Platelet Count 346 Mean Platelet Volume 9.7 Immature Granulocytes % 0.400 Neutrophils % 73.1 Lymphocytes % 13.4 L Monocytes % 10.7 Eosinophils % 1.8 Basophils % 0.6 Nucleated Red Blood 0.0 Cells % Immature Granulocytes # 0.050 H Neutrophils # 8.6 H Lymphocytes # 1.6 Monocytes # 1.3 H Eosinophils # 0.2 Basophils # 0.1 Nucleated Red Blood 0.0 Cells # Sodium Level 138 Potassium Level 4.2 Chloride Level 105 Carbon Dioxide Level 24 Anion Gap 9 Blood Urea Nitrogen 29 H Creatinine 1.68 H Glucose Level 155 Calcium Level 8.5 Phosphorus Level 4.1 Magnesium Level 2.3 Albumin 3.1 L Bedside Glucose 192 Medications Medication Current Medications Morphine Sulfate (morphine) 4 mg Q3 PRN IV severe pain Last administered on 01/16/19at 04:06; Admin Dose 4 MG; Start 01/11/19 at 19:00 IV Flush (NS 3 ml) 3 ml PER PROTOCOL IV ; Start 01/11/19 at 20:30 Ondansetron HCl (Zofran Inj) 4 mg Q6H PRN IV NAUSEA/VOMITING; Start 01/11/19 at 20:30 Acetaminophen (Tylenol Tab) 650 mg Q6H PRN PO .PAIN 1-3 OR TEMP; Start 01/11/19 at 20:30 Docusate Sodium (Colace) 100 mg Q12H PRN PO .CONSTIPATION; Start 01/11/19 at 20:30 Bisacodyl (Dulcolax) 5 mg DAILY PRN PO .CONSTIPATION; Start 01/11/19 at 20:30 Furosemide (Lasix) 20 mg DAILY IV Last administered on 01/16/19at 08:38; Admin Dose 20 MG; Start 01/12/19 at 09:00 Hydromorphone HCl (Dilaudid) 1 mg Q4H PRN IV SEVERE PAIN LEVEL 7-10 Last administered on 01/16/19at 11:08; Admin Dose 1 MG; Start 01/11/19 at 22:30 Vancomycin HCl (Vanco Iv Per Pharmacy) VANCOMYCIN PER PHARMACY PER PROTOCOL XX ; Start 01/12/19 at 07:30 Piperacillin Sod/ Tazobactam Sod 100 ml @ 200 mls/hr Q6 IVPB Last administered on 01/16/19at 05:55; Admin Dose 200 MLS/HR; Start 01/12/19 at 08:00 Diagnostic Test (Pha) (Accu-Chek) 1 ea 02 XX Last administered on 01/15/19at 02:23; Admin Dose 1 EA; Start 01/13/19 at 02:00 Ferric Sodium Gluconate Complex 125 mg/Sodium Chloride 110 ml @ 110 mls/hr DAILY@1300 IVPB Last administered on 01/15/19at 15:31; Admin Dose 110 MLS/HR; Start 01/12/19 at 13:00; Stop 01/16/19 at 13:59 Morphine Sulfate (Ms Contin (Er)) 15 mg BID PO Last administered on 01/16/19at 08:39; Admin Dose 15 MG; Start 01/12/19 at 11:00 Docusate Sodium (Colace) 250 mg DAILY PO Last administered on 01/16/19at 08:38; Admin Dose 250 MG; Start 01/12/19 at 11:00 Miscellaneous Information 1 ea NOTE XX ; Start 01/12/19 at 11:00 Glucose (Glutose) 15 gm Q15M PRN PO DECREASED GLUCOSE; Start 01/12/19 at 11:00 Glucose (Glutose) 22.5 gm Q15M PRN PO DECREASED GLUCOSE; Start 01/12/19 at 11:00 Dextrose (D50w Syringe) 25 ml Q15M PRN IV DECREASED GLUCOSE; Start 01/12/19 at 11:00 Dextrose (D50w Syringe) 50 ml Q15M PRN IV DECREASED GLUCOSE; Start 01/12/19 at 11:00 Glucagon (Glucagen) 1 mg Q15M PRN IM DECREASED GLUCOSE; Start 01/12/19 at 11:00 Glucose (Glutose) 15 gm Q15M PRN BUCCAL DECREASED GLUCOSE; Start 01/12/19 at 11:00 Atorvastatin Calcium (Lipitor) 40 mg HS PO Last administered on 01/15/19at 20:18; Admin Dose 40 MG; Start 01/12/19 at 21:00 Insulin Aspart (Novolog Insulin Pen) NOVOLOG *MODERATE* ALGORITHM WITH MEALS BEDTIME SC Last administered on 01/16/19at 08:47; Admin Dose 4 UNIT; Start 01/14/19 at 07:35 Apixaban (Eliquis) 5 mg BID PO Last administered on 01/16/19 08:38; Admin Dose 5 MG; Start 01/14/19 at 09:00 Sodium Hypochlorite (Dakins Diluted ()) 1 applic DAILY TP Last administered on 01/16/19 08:48; Admin Dose 1 APPLIC; Start 01/14/19 at 13:00 Metoprolol Tartrate (Lopressor) 25 mg Q6 PO Last administered on 01/16/19 05:55; Admin Dose 25 MG; Start 01/14/19 at 18:00 Insulin Aspart (Novolog Insulin Pen) 7 unit WITH MEALS SC Last administered on 01/16/19 08:48; Admin Dose 7 UNIT; Start 01/15/19 at 11:30 Insulin Glargine (Lantus) 18 units DAILY@2000 SC Last administered on 01/15/19 21:43; Admin Dose 18 UNITS; Start 01/15/19 at 20:00 Amiodarone HCl (Cordarone) 400 mg BID PO Last administered on 01/16/19 08:38; Admin Dose 400 MG; Start 01/15/19 at 10:30 Vancomycin HCl 1.5 gm/Sodium Chloride 250 ml @ 83.333 mls/ hr Q24H IVPB Last administered on 01/15/19 20:18; Admin Dose 83.333 MLS/HR; Start 01/15/19 at 20:00 EDITH AUGUSTINE MD Jan 16, 2019 11:54
[2019-01-16] MEDS: SENNA/DOCUSATE NA (8.6MG/50MG) TAB PO SCH ×2 (12:15→20:23)
[2019-01-16] MEDS: SOD FERRIC GLUC COMPLX 125 MG in SOD CHLORIDE 0.9% 100 ML IVPB SCH (13:00)
--- NOTE | 2019-01-16 16:10 | PN ---
DATE: 01/16/2019 SUBJECTIVE: The patient is being followed for left foot ulceration. He is status post left poplitea l to the common plantar artery bypass using non-reverse great saphenous vein. The patient is with pe rsistent necrotic tissue and planning surgical intervention. The patient is also with atrial fibrill ation with RVR and currently on amiodarone, Eliquis and beta-blockers. OBJECTIVE: VITAL SIGNS: Temperature is 98.2, pulse is 75, respiratory rate 20, blood pressure is 158/83, pulse ox is 96 at room air. GENERAL: The patient is in no acute distress. LUNGS: Regular respiration. EXTREMITIES: There is warm left foot with palpable bypass graft pulse. There is open amputation sit e and necrotic tissue extending to the 4th interspace and adjacent toe. The proximal interphalangeal joint is gangrenous, pain with palpation. No signs of pressure sore. MICROBIOLOGY: Wound cultures: Pseudomonas, enterococcus species and Serratia marcescens. LABORATORIES: WBC 11.8, hemoglobin 8.2, hematocrit 26.8, platelets 346. Sed rate is 85. ASSESSMENT: 1. Left foot diabetic foot ulceration. 2. Peripheral arterial disease status post lower extremity bypass. 3. Gangrene, left 5th toe. PLAN: The patient and family education. I reviewed cultures. Nursing recommendations are given for gram-negative coverage and we will plan surgery in mutually agreeable time. Obtained a consent for left foot debridements 5th toe amputation allograft, possible wound VAC application. Dictated By: NORMAN JONES/VIRGIE Conf#: [id number] DID#: [id number] CC: YAZMIN PARKER DO; MARÍA BIANCHI MD; EDITH AUGUSTINE MD;*EndCC*
[2019-01-16] MEDS: VANCOMYCIN HCL 1.5 GM in SOD CHLORIDE 0.9% 250 ML IVPB SCH (20:20)
[2019-01-16] MEDS: ATORVASTATIN 40 MG TAB PO SCH (20:23)
[2019-01-16] MEDS: GENTAMICIN 0.1% 15 GM OINT TOP SCH (20:32)
[2019-01-16] MEDS: ACETAMINOPHEN 325 MG TAB PO PRN (20:37)
[2019-01-16] MEDS: INSULIN GLARGINE [LANTus] (100 UNITS/ML) SYG SC SCH (21:56)
[2019-01-17] VITALS (11 sets, daily range): BP systolic 122–139; BP diastolic 72–93; PULSE 76–123; RESP 16–20
[2019-01-17] MEDS: ACCU-CHEK XX SCH (02:00)
[2019-01-17] MEDS: HYDROmorphONE 1 MG/ML SYG IV PRN ×2 (02:29→08:40)
[2019-01-17] MEDS: PIPER-TAZO 3.375 GM IV (PMX) 100 ML IVPB SCH ×4 (06:04→23:40)
[2019-01-17] MEDS: METOPROLOL 25 MG TAB PO SCH ×2 (06:05→11:56)
--- NOTE | 2019-01-17 07:20 | CONS ---
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 will try to contact his primary MD to see if cultures were done and what antibiotics he had been on 01/13 - ESR elevated at 85 continue with vanco/zosyn contacted primary MD and pt was given oral keflex in late november, will try to contact gas line installer 01/15 - pt was never seen by gas line installer but was seen by vascular surgeon can not find evidence that pt had been on antibiotics [employer] pt is s/p L pop-plantar artery bypass and then s/p 4th toe amputation 5th toe and forefoot area of gangrene had not been demarcated cx from amputation surgery has GNR and GPC continue with vanco/zosyn 01/17 - cx did not grow MRSA, d/c vanco pseudomonas, proteus and enterococcus all sensitive to zosyn, continue with this pt awaits further surgery regarding 5th toe 2) DM his HgbA1C is elevated 3) increase in creatinine 01/15 - pt has good urine output continue to monitor may need to adjust antibiotics if creatinine continues to worsen 01/17 - d/c vanco, continue with zosyn at present Consultation Date/Type/Reason Admit Date/Time January 11, 2019 at 18:31 Initial Consult Date 01/12/19 Type of Consult ID Date/Time of Note DATE: 01/17/19 TIME: 07:18 24 HR Interval Summary Free Text/Dictation pt has pain at surgical sites no N, V, D breathing is ok Exam/Review of Systems Exam Vitals Vital Signs Date Temp Pulse Resp B/P (MAP) Pulse Ox O2 O2 Flow FiO2 Time Delivery Rate 01/17/19 103 04:00 01/17/19 98.0 18 124/72 99 03:58 (89) 01/17/19 3.0 03:33 01/16/19 Nasal 19:52 Cannula Intake and Output 01/16/19 01/16/19 01/17/19 1515:00 23:00 07:00 IntakeIntake Total 100 ml 850 ml OutputOutput Total 1500 ml BalanceBalance 100 ml -650 ml Constitutional: alert, oriented Eyes: nl sclera Respiratory: clear to auscultation Cardiovascular: regular rate and rhythm Gastrointestinal: soft, non-tender Extremities: other (LLE is bandaged) Results Result Diagram: 01/17/19 0606 01/17/19 0606 Results 24hrs Laboratory Tests Test 01/16/19 08:37 01/16/19 12:14 01/16/19 18:03 01/16/19 20:30 Bedside Glucose 192 183 155 120 Test 01/17/19 02:27 01/17/19 06:06 Bedside Glucose 115 White Blood Count 9.4 # Red Blood Count 3.42 L Hemoglobin 8.4 L Hematocrit 28.0 L Mean Corpuscular Volume 81.9 L Mean Corpuscular 24.6 L Hemoglobin Mean Corpuscular 30.0 L Hemoglobin Concent Red Cell Distribution 14.6 H Width Platelet Count 327 Mean Platelet Volume 9.3 Immature Granulocytes % 0.400 Neutrophils % 69.5 Lymphocytes % 14.3 L Monocytes % 10.1 Eosinophils % 5.0 Basophils % 0.7 Nucleated Red Blood 0.0 Cells % Immature Granulocytes # 0.040 H Neutrophils # 6.5 Lymphocytes # 1.3 Monocytes # 1.0 H Eosinophils # 0.5 Basophils # 0.1 Nucleated Red Blood 0.0 Cells # Sodium Level 140 Potassium Level 3.8 Chloride Level 107 Carbon Dioxide Level 26 Anion Gap 7 Blood Urea Nitrogen 22 H Creatinine 1.25 H Glucose Level 119 Calcium Level 8.8 Phosphorus Level 3.2 Magnesium Level 2.0 Albumin 3.0 L Medications Medication Current Medications Morphine Sulfate (morphine) 4 mg Q3 PRN IV severe pain Last administered on 01/16/19at 04:06; Admin Dose 4 MG; Start 01/11/19 at 19:00 IV Flush (NS 3 ml) 3 ml PER PROTOCOL IV ; Start 01/11/19 at 20:30 Ondansetron HCl (Zofran Inj) 4 mg Q6H PRN IV NAUSEA/VOMITING; Start 01/11/19 at 20:30 Acetaminophen (Tylenol Tab) 650 mg Q6H PRN PO .PAIN 1-3 OR TEMP Last administered on 01/16/19at 20:37; Admin Dose 650 MG; Start 01/11/19 at 20:30 Docusate Sodium (Colace) 100 mg Q12H PRN PO .CONSTIPATION; Start 01/11/19 at 20:30 Bisacodyl (Dulcolax) 5 mg DAILY PRN PO .CONSTIPATION; Start 01/11/19 at 20:30 Furosemide (Lasix) 20 mg DAILY IV Last administered on 01/16/19at 08:38; Admin Dose 20 MG; Start 01/12/19 at 09:00 Hydromorphone HCl (Dilaudid) 1 mg Q4H PRN IV SEVERE PAIN LEVEL 7-10 Last administered on 01/17/19at 02:29; Admin Dose 1 MG; Start 01/11/19 at 22:30 Piperacillin Sod/ Tazobactam Sod 100 ml @ 200 mls/hr Q6 IVPB Last administered on 01/17/19at 06:04; Admin Dose 200 MLS/HR; Start 01/12/19 at 08:00 Diagnostic Test (Pha) (Accu-Chek) 1 ea 02 XX Last administered on 01/15/19at 02:23; Admin Dose 1 EA; Start 01/13/19 at 02:00 Morphine Sulfate (Ms Contin (Er)) 15 mg BID PO Last administered on 01/16/19 20:23; Admin Dose 15 MG; Start 01/12/19 at 11:00 Miscellaneous Information 1 ea NOTE XX ; Start 01/12/19 at 11:00 Glucose (Glutose) 15 gm Q15M PRN PO DECREASED GLUCOSE; Start 01/12/19 at 11:00 Glucose (Glutose) 22.5 gm Q15M PRN PO DECREASED GLUCOSE; Start 01/12/19 at 11:00 Dextrose (D50w Syringe) 25 ml Q15M PRN IV DECREASED GLUCOSE; Start 01/12/19 at 11:00 Dextrose (D50w Syringe) 50 ml Q15M PRN IV DECREASED GLUCOSE; Start 01/12/19 at 11:00 Glucagon (Glucagen) 1 mg Q15M PRN IM DECREASED GLUCOSE; Start 01/12/19 at 11:00 Glucose (Glutose) 15 gm Q15M PRN BUCCAL DECREASED GLUCOSE; Start 01/12/19 at 11:00 Atorvastatin Calcium (Lipitor) 40 mg HS PO Last administered on 01/16/19at 20:23; Admin Dose 40 MG; Start 01/12/19 at 21:00 Insulin Aspart (Novolog Insulin Pen) NOVOLOG *MODERATE* ALGORITHM WITH MEALS BEDTIME SC Last administered on 01/16/19 18:10; Admin Dose 2 UNIT; Start 12/17 09/04 at 07:35 Apixaban (Eliquis) 5 mg BID PO Last administered on 01/16/19 20:22; Admin Dose 5 MG; Start 01/14/19 at 09:00 Sodium Hypochlorite (Dakins Diluted ()) 1 applic DAILY TP Last administered on 01/16/19 08:48; Admin Dose 1 APPLIC; Start 01/14/19 at 13:00 Metoprolol Tartrate (Lopressor) 25 mg Q6 PO Last administered on 01/17/19 06:05; Admin Dose 25 MG; Start 01/14/19 at 18:00 Amiodarone HCl (Cordarone) 400 mg BID PO Last administered on 01/16/19 20:23; Admin Dose 400 MG; Start 01/15/19 at 10:30 Senna/Docusate Sodium (Senokot-S) 1 tab BID PO Last administered on 01/16/19 20:23; Admin Dose 1 TAB; Start 01/16/19 at 12:00 Insulin Aspart (Novolog Insulin Pen) 10 unit WITH MEALS SC Last administered on 01/16/19 18:10; Admin Dose 10 UNIT; Start 01/16/19 at 17:55 Insulin Glargine (Lantus) 22 units DAILY@2000 SC Last administered on 01/16/19 21:56; Admin Dose 22 UNITS; Start 01/16/19 at 20:00 Gentamicin Sulfate (Gentamicin 0.1% Oint) 1 applic TID TOP Last administered on 01/16/19 20:32; Admin Dose 1 APPLIC; Start 01/16/19 at 21:00 Naphazoline HCl/ Pheniramine Maleate (Naphcon A) 2 drop QID PRN BOTH EYES irritation; Start 01/16/19 at 18:00 PHANI MCCULLOUGH MD Jan 17, 2019 07:20
[2019-01-17] MEDS: INSULIN ASPART [NOVOLOG] 3 ML PEN SC SCH ×7 (07:55→20:06)
[2019-01-17] MEDS: AMIODARONE 200 MG TAB PO SCH ×2 (08:38→21:00)
[2019-01-17] MEDS: FUROSEMIDE 20 MG INJ IV SCH (08:39)
[2019-01-17] MEDS: APIXABAN 5 MG TABLET PO SCH (08:39)
[2019-01-17] MEDS: SENNA/DOCUSATE NA (8.6MG/50MG) TAB PO SCH ×2 (08:39→19:58)
[2019-01-17] MEDS: DAKINS 0.0125%(1/40) 473 ML SOLUTION TP SCH (08:39)
[2019-01-17] MEDS: GENTAMICIN 0.1% 15 GM OINT TOP SCH ×3 (08:39→21:07)
[2019-01-17] MEDS: morphine (ER) 15 MG TAB PO SCH ×2 (08:49→21:00)
--- NOTE | 2019-01-17 09:51 | PN ---
Date/Time of Note Date/Time of Note DATE: 01/17/19 TIME: 09:49 Assessment/Plan Lines/Catheters IV Catheter Type (from Nrs): Peripheral IV Espitia in Place (from Nrs): Yes Assessment/Plan Assessment/Plan Doing well s/p L pop-PT bypass d/c espitia PT / ambulate Further foot debridement per Dr. Schwarz Subjective 24 Hr Interval Summary No c/o. He didn't do well with PT because of pain. Exam/Review of Systems Vital Signs Vitals Vital Signs Date Temp Pulse Resp B/P (MAP) Pulse Ox O2 O2 Flow FiO2 Time Delivery Rate 01/17/19 116 08:01 01/17/19 97.2 17 129/93 94 07:39 (105) 01/17/19 3.0 03:33 01/16/19 Nasal 19:52 Cannula Intake and Output 01/16/19 01/16/19 01/17/19 1515:00 23:00 07:00 IntakeIntake Total 100 ml 850 ml OutputOutput Total 1500 ml BalanceBalance 100 ml -650 ml Exam Free Text/Dictation L foot warm, 2+ graft pulse Leg incisions clean and dry, mild ecchymosis in the left thigh and groin from saphenous vein harvest Results Result Diagram: 01/17/19 0606 01/17/19 0606 NICOLAS SAAB MD Jan 17, 2019 09:51
--- NOTE | 2019-01-17 14:53 | CONS ---
Assessment/Plan Assessment/Plan Hospital Course (Demo Recall) Paroxysmal atrial fibrillation, currently atrial fibrillation LVEF 50-55% Critical limb ischemia with gangrene s/p surgical revascularization 01/13/19 and debridement on 01/14/2019 Diabetes, uncontrolled Hypertension Dyslipidemia Peripheral arterial disease Patient with recurrent atrial fibrillation with rapid ventricular rates, continue amiodarone, increased dose of beta-timmy Continue anticoagulation as tolerated Consultation Date/Type/Reason Admit Date/Time January 11, 2019 at 18:31 Initial Consult Date 01/12/19 Type of Consult Cardiology Date/Time of Note DATE: 01/17/19 TIME: 14:52 24 HR Interval Summary Free Text/Dictation No shortness of breath, palpitations, chest pain Exam/Review of Systems Vital Signs Vitals Vital Signs Date Temp Pulse Resp B/P (MAP) Pulse Ox O2 O2 Flow FiO2 Time Delivery Rate 01/17/19 123 12:01 01/17/19 98.6 16 139/89 96 11:32 (106) 01/17/19 Nasal 3.0 08:00 Cannula Intake and Output 01/16/19 01/16/19 01/17/19 1515:00 23:00 07:00 IntakeIntake Total 100 ml 850 ml OutputOutput Total 1500 ml BalanceBalance 100 ml -650 ml Exam Constitutional: alert, oriented (No apparent distress) Head: normocephalic Respiratory: other (Coarse breath sounds bilaterally, no wheezing) Cardiovascular: irregular rhythm (S1-S2 heard) Gastrointestinal: soft, non-tender, bowel sounds Extremities: edema (Trace) Labs Result Diagram: 01/17/19 0606 01/17/19 0606 Results 24hrs Laboratory Tests Test 01/16/19 18:03 01/16/19 20:30 01/17/19 02:27 01/17/19 06:06 Bedside Glucose 155 120 115 White Blood Count 9.4 # Red Blood Count 3.42 L Hemoglobin 8.4 L Hematocrit 28.0 L Mean Corpuscular Volume 81.9 L Mean Corpuscular 24.6 L Hemoglobin Mean Corpuscular 30.0 L Hemoglobin Concent Red Cell Distribution 14.6 H Width Platelet Count 327 Mean Platelet Volume 9.3 Immature Granulocytes % 0.400 Neutrophils % 69.5 Lymphocytes % 14.3 L Monocytes % 10.1 Eosinophils % 5.0 Basophils % 0.7 Nucleated Red Blood 0.0 Cells % Immature Granulocytes # 0.040 H Neutrophils # 6.5 Lymphocytes # 1.3 Monocytes # 1.0 H Eosinophils # 0.5 Basophils # 0.1 Nucleated Red Blood 0.0 Cells # Sodium Level 140 Potassium Level 3.8 Chloride Level 107 Carbon Dioxide Level 26 Anion Gap 7 Blood Urea Nitrogen 22 H Creatinine 1.25 H Glucose Level 119 Calcium Level 8.8 Phosphorus Level 3.2 Magnesium Level 2.0 Albumin 3.0 L Test 01/17/19 08:05 01/17/19 11:52 Bedside Glucose 134 266 H Medications Medications Current Medications Morphine Sulfate (morphine) 4 mg Q3 PRN IV severe pain Last administered on 01/16/19 04:06; Admin Dose 4 MG; Start 01/11/19 at 19:00 IV Flush (NS 3 ml) 3 ml PER PROTOCOL IV ; Start 01/11/19 at 20:30 Ondansetron HCl (Zofran Inj) 4 mg Q6H PRN IV NAUSEA/VOMITING; Start 01/11/19 at 20:30 Acetaminophen (Tylenol Tab) 650 mg Q6H PRN PO .PAIN 1-3 OR TEMP Last administered on 01/16/19at 20:37; Admin Dose 650 MG; Start 01/11/19 at 20:30 Docusate Sodium (Colace) 100 mg Q12H PRN PO .CONSTIPATION; Start 01/11/19 at 20:30 Bisacodyl (Dulcolax) 5 mg DAILY PRN PO .CONSTIPATION; Start 01/11/19 at 20:30 Furosemide (Lasix) 20 mg DAILY IV Last administered on 01/17/19 08:39; Admin Dose 20 MG; Start 01/12/19 at 09:00 Hydromorphone HCl (Dilaudid) 1 mg Q4H PRN IV SEVERE PAIN LEVEL 7-10 Last administered on 01/17/19 08:40; Admin Dose 1 MG; Start 01/11/19 at 22:30 Piperacillin Sod/ Tazobactam Sod 100 ml @ 200 mls/hr Q6 IVPB Last administered on 01/17/19 11:53; Admin Dose 200 MLS/HR; Start 01/12/19 at 08:00 Diagnostic Test (Pha) (Accu-Chek) 1 ea 02 XX Last administered on 01/15/19 02:23; Admin Dose 1 EA; Start 01/13/19 at 02:00 Morphine Sulfate (Ms Contin (Er)) 15 mg BID PO Last administered on 01/17/19at 08:49; Admin Dose 15 MG; Start 01/12/19 at 11:00 Miscellaneous Information 1 ea NOTE XX ; Start 01/12/19 at 11:00 Glucose (Glutose) 15 gm Q15M PRN PO DECREASED GLUCOSE; Start 01/12/19 at 11:00 Glucose (Glutose) 22.5 gm Q15M PRN PO DECREASED GLUCOSE; Start 01/12/19 at 11:00 Dextrose (D50w Syringe) 25 ml Q15M PRN IV DECREASED GLUCOSE; Start 01/12/19 at 11:00 Dextrose (D50w Syringe) 50 ml Q15M PRN IV DECREASED GLUCOSE; Start 01/12/19 at 11:00 Glucagon (Glucagen) 1 mg Q15M PRN IM DECREASED GLUCOSE; Start 01/12/19 at 11:00 Glucose (Glutose) 15 gm Q15M PRN BUCCAL DECREASED GLUCOSE; Start 01/12/19 at 11:00 Atorvastatin Calcium (Lipitor) 40 mg HS PO Last administered on 01/16/19at 20:23; Admin Dose 40 MG; Start 01/12/19 at 21:00 Insulin Aspart (Novolog Insulin Pen) NOVOLOG *MODERATE* ALGORITHM WITH MEALS BEDTIME SC Last administered on 01/17/19at 12:05; Admin Dose 10 UNIT; Start 01/14/19 at 07:35 Apixaban (Eliquis) 5 mg BID PO Last administered on 01/17/19 08:39; Admin Dose 5 MG; Start 01/14/19 at 09:00 Sodium Hypochlorite (Dakins Diluted (/40)) 1 applic DAILY TP Last administered on 01/17/19 08:39; Admin Dose 1 APPLIC; Start 01/14/19 at 13:00 Metoprolol Tartrate (Lopressor) 25 mg Q6 PO Last administered on 01/17/19at 11:56; Admin Dose 25 MG; Start 01/14/19 at 18:00 Amiodarone HCl (Cordarone) 400 mg BID PO Last administered on 01/17/19 08:38; Admin Dose 400 MG; Start 01/15/19 at 10:30 Senna/Docusate Sodium (Senokot-S) 1 tab BID PO Last administered on 01/17/19at 08:39; Admin Dose 1 TAB; Start 01/16/19 at 12:00 Insulin Aspart (Novolog Insulin Pen) 10 unit WITH MEALS SC Last administered on 01/17/19at 12:10; Admin Dose 10 UNIT; Start 01/16/19 at 17:55 Insulin Glargine (Lantus) 22 units DAILY@2000 SC Last administered on 01/16/19at 21:56; Admin Dose 22 UNITS; Start 01/16/19 at 20:00 Gentamicin Sulfate (Gentamicin 0.1% Oint) 1 applic TID TOP Last administered on 01/17/19at 12:05; Admin Dose 1 APPLIC; Start 01/16/19 at 21:00 Naphazoline HCl/ Pheniramine Maleate (Naphcon A) 2 drop QID PRN BOTH EYES irrit ation; Start 01/16/19 at 18:00 Buddy Otto DO Jan 17, 2019 14:53
--- NOTE | 2019-01-17 16:11 | PN ---
Date/Time of Note Date/Time of Note DATE: 01/17/19 TIME: 16:04 Assessment/Plan VTE Prophylaxis Risk score (from Nsg)>0 risk: 3 Pharmacological prophylaxis: apixaban Lines/Catheters IV Catheter Type (from Nrsg): Peripheral IV Urinary Cath still in place: Yes Reason Cath still needed: other (indicate) Assessment/Plan Hospital Course S: patient refusing PT, states he's to have surgery tomorrow O : Constitutional: alert, oriented x3 Head: atraumatic, normocephalic Neck: non-tender, supple Respiratory: clear to auscultation Cardiovascular: regular rate and rhythm Gastrointestinal: S/ NT / ND / +BS Extremities: L foot bandaged Assessment and plan: 63-year-old male who was sent to the emergency room from the vascular surgeon's office because of severe left fourth and fifth digit pain. Patient has no known severe peripheral arterial disease with gangrene of the left fourth digit. He has had angioplasty in the past which is reported to have failed. Patient was found to be in A. fib RVR upon arrival to the emergency room and is admitted and managed as follows: 1. Severe peripheral arterial disease -failed prior angioplasty -now status post lower extremity bypass January 13, 2019 2. Left lower extremity gangrene to fourth and fifth toes -Status post left fourth toe amputation on January 14, 2019 -Per patient he is planned for fifth toe amputation tomorrow. Will confirm with podiatry 3. Atrial fibrillation status post RVR but still with nonsustained rate control -Patient continued on amiodarone and beta-timmy therapy, consider dosage i ncrease, cardiology managing. -Patient is maintained on anticoagulation with Eliquis at this time. If patient is planned for intervention tomorrow we will have to switch him back to subcu Lovenox 4. Left lower extremity diabetic ulcer and cellulitis -Cultures growing Pseudomonas, Proteus and enterococcus -Continue antibiotics per ID 5. Acute renal insufficiency, Vanco related? -Vancomycin discontinued -Creatinine levels trending down nicely -Currently off IV fluids 6. Diabetes mellitus, hemoglobin A1c 10.2 -Control is fairly improved at this time, no changes to regimen for now, c ontinue monitoring 7. Chronic dyslipidemia on statin therapy Plan: -Continue current care, confirmed with podiatry if patient indeed is having fi fth toe amputation tomorrow, continue antibiotics -Continue to monitor renal function -Patient is to be discharged to custodial facility at discharge once cleared -Remain in telemetry for now for uncontrolled A. fib -Further interventions per clinical course. Result Diagram: 01/17/19 0606 01/17/19 0606 Results 24hrs Laboratory Tests Test 01/16/19 18:03 01/16/19 20:30 01/17/19 02:27 01/17/19 06:06 Bedside Glucose 155 120 115 White Blood Count 9.4 # Red Blood Count 3.42 L Hemoglobin 8.4 L Hematocrit 28.0 L Mean Corpuscular Volume 81.9 L Mean Corpuscular 24.6 L Hemoglobin Mean Corpuscular 30.0 L Hemoglobin Concent Red Cell Distribution 14.6 H Width Platelet Count 327 Mean Platelet Volume 9.3 Immature Granulocytes % 0.400 Neutrophils % 69.5 Lymphocytes % 14.3 L Monocytes % 10.1 Eosinophils % 5.0 Basophils % 0.7 Nucleated Red Blood 0.0 Cells % Immature Granulocytes # 0.040 H Neutrophils # 6.5 Lymphocytes # 1.3 Monocytes # 1.0 H Eosinophils # 0.5 Basophils # 0.1 Nucleated Red Blood 0.0 Cells # Sodium Level 140 Potassium Level 3.8 Chloride Level 107 Carbon Dioxide Level 26 Anion Gap 7 Blood Urea Nitrogen 22 H Creatinine 1.25 H Glucose Level 119 Calcium Level 8.8 Phosphorus Level 3.2 Magnesium Level 2.0 Albumin 3.0 L Test 01/17/19 08:05 01/17/19 11:52 Bedside Glucose 134 266 H Exam/Review of Systems Exam Vitals Vital Signs Date Temp Pulse Resp B/P (MAP) Pulse Ox O2 O2 Flow FiO2 Time Delivery Rate 01/17/19 3.0 15:57 01/17/19 98.0 105 17 128/80 100 15:20 (96) 01/17/19 Nasal 08:00 Cannula Intake and Output 01/16/19 01/16/19 01/17/19 1515:00 23:00 07:00 IntakeIntake Total 100 ml 850 ml OutputOutput Total 1500 ml BalanceBalance 100 ml -650 ml Results Results 24hrs Laboratory Tests Test 01/16/19 18:03 01/16/19 20:30 01/17/19 02:27 01/17/19 06:06 Bedside Glucose 155 120 115 White Blood Count 9.4 # Red Blood Count 3.42 L Hemoglobin 8.4 L Hematocrit 28.0 L Mean Corpuscular Volume 81.9 L Mean Corpuscular 24.6 L Hemoglobin Mean Corpuscular 30.0 L Hemoglobin Concent Red Cell Distribution 14.6 H Width Platelet Count 327 Mean Platelet Volume 9.3 Immature Granulocytes % 0.400 Neutrophils % 69.5 Lymphocytes % 14.3 L Monocytes % 10.1 Eosinophils % 5.0 Basophils % 0.7 Nucleated Red Blood 0.0 Cells % Immature Granulocytes # 0.040 H Neutrophils # 6.5 Lymphocytes # 1.3 Monocytes # 1.0 H Eosinophils # 0.5 Basophils # 0.1 Nucleated Red Blood 0.0 Cells # Sodium Level 140 Potassium Level 3.8 Chloride Level 107 Carbon Dioxide Level 26 Anion Gap 7 Blood Urea Nitrogen 22 H Creatinine 1.25 H Glucose Level 119 Calcium Level 8.8 Phosphorus Level 3.2 Magnesium Level 2.0 Albumin 3.0 L Test 01/17/19 08:05 01/17/19 11:52 Bedside Glucose 134 266 H Medications Medication Current Medications Morphine Sulfate (morphine) 4 mg Q3 PRN IV severe pain Last administered on 01/16/19at 04:06; Admin Dose 4 MG; Start 01/11/19 at 19:00 IV Flush (NS 3 ml) 3 ml PER PROTOCOL IV ; Start 01/11/19 at 20:30 Ondansetron HCl (Zofran Inj) 4 mg Q6H PRN IV NAUSEA/VOMITING; Start 01/11/19 at 20:30 Acetaminophen (Tylenol Tab) 650 mg Q6H PRN PO .PAIN 1-3 OR TEMP Last administered on 01/16/19at 20:37; Admin Dose 650 MG; Start 01/11/19 at 20:30 Docusate Sodium (Colace) 100 mg Q12H PRN PO .CONSTIPATION; Start 01/11/19 at 20:30 Bisacodyl (Dulcolax) 5 mg DAILY PRN PO .CONSTIPATION; Start 01/11/19 at 20:30 Furosemide (Lasix) 20 mg DAILY IV Last administered on 01/17/19at 08:39; Admin Dose 20 MG; Start 01/12/19 at 09:00 Hydromorphone HCl (Dilaudid) 1 mg Q4H PRN IV SEVERE PAIN LEVEL 7-10 Last administered on 01/17/19at 08:40; Admin Dose 1 MG; Start 01/11/19 at 22:30 Piperacillin Sod/ Tazobactam Sod 100 ml @ 200 mls/hr Q6 IVPB Last administered on 01/17/19 11:53; Admin Dose 200 MLS/HR; Start 01/12/19 at 08:00 Diagnostic Test (Pha) (Accu-Chek) 1 ea 02 XX Last administered on 01/15/19 02:23; Admin Dose 1 EA; Start 01/13/19 at 02:00 Morphine Sulfate (Ms Contin (Er)) 15 mg BID PO Last administered on 01/17/19 08:49; Admin Dose 15 MG; Start 01/12/19 at 11:00 Miscellaneous Information 1 ea NOTE XX ; Start 01/12/19 at 11:00 Glucose (Glutose) 15 gm Q15M PRN PO DECREASED GLUCOSE; Start 01/12/19 at 11:00 Glucose (Glutose) 22.5 gm Q15M PRN PO DECREASED GLUCOSE; Start 01/12/19 at 11:00 Dextrose (D50w Syringe) 25 ml Q15M PRN IV DECREASED GLUCOSE; Start 01/12/19 at 11:00 Dextrose (D50w Syringe) 50 ml Q15M PRN IV DECREASED GLUCOSE; Start 01/12/19 at 11:00 Glucagon (Glucagen) 1 mg Q15M PRN IM DECREASED GLUCOSE; Start 01/12/19 at 11:00 Glucose (Glutose) 15 gm Q15M PRN BUCCAL DECREASED GLUCOSE; Start 01/12/19 at 11:00 Atorvastatin Calcium (Lipitor) 40 mg HS PO Last administered on 01/16/19 20:23; Admin Dose 40 MG; Start 01/12/19 at 21:00 Insulin Aspart (Novolog Insulin Pen) NOVOLOG *MODERATE* ALGORITHM WITH MEALS BEDTIME SC Last administered on 01/17/19 12:05; Admin Dose 10 UNIT; Start 01/14/19 at 07:35 Apixaban (Eliquis) 5 mg BID PO Last administered on 01/17/19 08:39; Admin Dose 5 MG; Start 01/14/19 at 09:00 Sodium Hypochlorite (Dakins Diluted ()) 1 applic DAILY TP Last administered on 01/17/19 08:39; Admin Dose 1 APPLIC; Start 01/14/19 at 13:00 Amiodarone HCl (Cordarone) 400 mg BID PO Last administered on 01/17/19 08:38; Admin Dose 400 MG; Start 01/15/19 at 10:30 Senna/Docusate Sodium (Senokot-S) 1 tab BID PO Last administered on 01/17/19 08:39; Admin Dose 1 TAB; Start 01/16/19 at 12:00 Insulin Aspart (Novolog Insulin Pen) 10 unit WITH MEALS SC Last administered on 01/17/19at 12:10; Admin Dose 10 UNIT; Start 01/16/19 at 17:55 Insulin Glargine (Lantus) 22 units DAILY@2000 SC Last administered on 01/16/19 21:56; Admin Dose 22 UNITS; Start 01/16/19 at 20:00 Gentamicin Sulfate (Gentamicin 0.1% Oint) 1 applic TID TOP Last administered on 01/17/19at 12:05; Admin Dose 1 APPLIC; Start 01/16/19 at 21:00 Naphazoline HCl/ Pheniramine Maleate (Naphcon A) 2 drop QID PRN BOTH EYES irritation; Start 01/16/19 at 18:00 Metoprolol Tartrate (Lopressor) 50 mg Q6 PO ; Start 01/17/19 at 18:00 BERKLEY MENDEZ Jan 17, 2019 16:10
[2019-01-17] MEDS: METOPROLOL 50 MG TAB PO SCH ×2 (18:28→23:40)
[2019-01-17] MEDS: morphine 4 MG/ML VIAL IV PRN (19:54)
[2019-01-17] MEDS: ATORVASTATIN 40 MG TAB PO SCH (19:58)
[2019-01-17] MEDS: INSULIN GLARGINE [LANTus] (100 UNITS/ML) SYG SC SCH (20:07)
[2019-01-17] MEDS ORDERED: ENOXAPARIN 100 MG/ML SYG SC ONE (21:00)
[2019-01-18] VITALS (22 sets, daily range): BP systolic 94–134; BP diastolic 60–84; PULSE 61–78; RESP 14–34
[2019-01-18] MEDS: ACCU-CHEK XX SCH (01:10)
[2019-01-18] MEDS: morphine 4 MG/ML VIAL IV PRN ×3 (02:13→21:53)
--- NOTE | 2019-01-18 04:25 | PN ---
DATE: 01/17/2019 SUBJECTIVE: The patient is being followed for left foot ulceration, status post debridement and left lower extremity revascularization. Has persistent gangrenous changes . He is being scheduled for operative intervention. OBJECTIVE: VITAL SIGNS: Temperature 98, pulse 76, respiratory rate 20, blood pressure 122/76, pulse oximetry is 99%. GENERAL: The patient is alert, oriented. LUNGS: Regular respiration. EXTREMITIES: Left foot is warm. Left 4th toe amputation. There are gangrenous changes in 5th toe a s well as the plantar 4th interspace. Pain with palpation. No signs of pressure sore, localized aiyana thema. DIAGNOSTIC DATA: Wound cultures: Pseudomonas, Serratia and Enterococcus species. LABORATORIES: WBC 9.4, hemoglobin 8.4, hematocrit 28, platelets 327. Glucose 261. ASSESSMENT: 1. Left foot gangrene. 2. Peripheral arterial disease status post left lower extremity bypass. 3. Atrial fibrillation status post rapid ventricular response. 4. Cellulitis with polymicrobial growth to left foot. 5. Diabetes type 2 with hyperglycemia. PLAN: I discussed with patient and primary and is being scheduled for operative intervention. Sheryl nue antibiotics. Obtain a consent for left foot 5th toe amputation with debridement of ulceration, p ossible allograft application. All questions were answered to his satisfaction. Also, the patient m ay benefit from home health versus care home placement. Dictated By: NORMAN JONES/VIRGIE Conf#: [id number] DID#: [id number] CC: MARÍA BIANCHI MD; EDITH AUGUSTINE MD; YAZMIN PARKER DO;*EndCC*
[2019-01-18] MEDS: PIPER-TAZO 3.375 GM IV (PMX) 100 ML IVPB SCH ×4 (05:35→23:46)
[2019-01-18] MEDS: METOPROLOL 50 MG TAB PO SCH ×4 (05:35→22:00)
[2019-01-18] MEDS: INSULIN ASPART [NOVOLOG] 3 ML PEN SC SCH ×7 (07:58→21:24)
[2019-01-18] MEDS: SENNA/DOCUSATE NA (8.6MG/50MG) TAB PO SCH ×2 (08:51→20:07)
[2019-01-18] MEDS: morphine (ER) 15 MG TAB PO SCH ×2 (08:51→20:07)
[2019-01-18] MEDS: DAKINS 0.0125%(1/40) 473 ML SOLUTION TP SCH (08:52)
[2019-01-18] MEDS: AMIODARONE 200 MG TAB PO SCH ×2 (08:53→20:09)
[2019-01-18] MEDS: FUROSEMIDE 20 MG INJ IV SCH (08:53)
[2019-01-18] MEDS: GENTAMICIN 0.1% 15 GM OINT TOP SCH ×3 (08:54→21:00)
--- NOTE | 2019-01-18 11:01 | CONS ---
Assessment/Plan Assessment/Plan Hospital Course (Demo Recall) Paroxysmal atrial fibrillation LVEF 50-55% Critical limb ischemia with gangrene s/p surgical revascularization 01/13/19 and debridement on 01/14/2019 Diabetes, uncontrolled Hypertension Dyslipidemia Peripheral arterial disease Patient currently in sinus rhythm, continue beta-timmy as heart rate and blood pressure permits, amiodarone with plans of titrating down over the next few days Restart anticoagulation when okay by surgery Consultation Date/Type/Reason Admit Date/Time January 11, 2019 at 18:31 Initial Consult Date 01/12/19 Type of Consult Cardiology Date/Time of Note DATE: 01/18/19 TIME: 11:00 24 HR Interval Summary Free Text/Dictation Denies shortness of breath, palpitations or chest pain Exam/Review of Systems Vital Signs Vitals Vital Signs Date Temp Pulse Resp B/P (MAP) Pulse Ox O2 O2 Flow FiO2 Time Delivery Rate 01/18/19 61 08:11 01/18/19 97.5 16 94/63 (73) 100 07:58 01/18/19 Nasal 3.0 07:46 Cannula Intake and Output 01/17/19 01/17/19 01/18/19 1515:00 23:00 07:00 IntakeIntake Total 1370 ml 540 ml OutputOutput Total 1900 ml BalanceBalance -530 ml 540 ml Exam Constitutional: alert, oriented (No apparent distress) Head: normocephalic Respiratory: other (Coarse breath sounds bilaterally, no wheezing) Cardiovascular: regular rate and rhythm, other (S1-S2 heard) Gastrointestinal: soft, non-tender, bowel sounds Extremities: other (Bandage lower extremity) Labs Result Diagram: 01/18/19 0554 01/18/19 0554 Results 24hrs Laboratory Tests Test 01/17/19 11:52 01/17/19 17:27 01/17/19 19:57 01/18/19 01:04 Bedside Glucose 266 H 244 H 261 H 199 Test 01/18/19 05:54 01/18/19 07:53 White Blood Count 10.4 Red Blood Count 3.40 L Hemoglobin 8.4 L Hematocrit 27.9 L Mean Corpuscular Volume 82.1 Mean Corpuscular 24.7 L Hemoglobin Mean Corpuscular 30.1 L Hemoglobin Concent Red Cell Distribution 14.8 H Width Platelet Count 371 Mean Platelet Volume 9.8 Immature Granulocytes % 0.700 H Neutrophils % 57.5 Lymphocytes % 23.5 Monocytes % 11.6 H Eosinophils % 6.0 Basophils % 0.7 Nucleated Red Blood 0.2 H Cells % Immature Granulocytes # 0.070 H Neutrophils # 6.0 Lymphocytes # 2.4 Monocytes # 1.2 H Eosinophils # 0.6 H Basophils # 0.1 Nucleated Red Blood 0.0 Cells # Sodium Level 139 Potassium Level 3.8 Chloride Level 102 Carbon Dioxide Level 27 Anion Gap 10 Blood Urea Nitrogen 28 H Creatinine 1.42 H Glucose Level 177 Calcium Level 8.2 L Phosphorus Level 4.0 Magnesium Level 1.9 Albumin 3.1 L Bedside Glucose 194 Medications Medications Current Medications Morphine Sulfate (morphine) 4 mg Q3 PRN IV severe pain Last administered on 01/18/19at 06:04; Admin Dose 4 MG; Start 01/11/19 at 19:00 IV Flush (NS 3 ml) 3 ml PER PROTOCOL IV ; Start 01/11/19 at 20:30 Ondansetron HCl (Zofran Inj) 4 mg Q6H PRN IV NAUSEA/VOMITING; Start 01/11/19 at 20:30 Acetaminophen (Tylenol Tab) 650 mg Q6H PRN PO .PAIN 1-3 OR TEMP Last administered on 01/16/19at 20:37; Admin Dose 650 MG; Start 01/11/19 at 20:30 Docusate Sodium (Colace) 100 mg Q12H PRN PO .CONSTIPATION; Start 01/11/19 at 20:30 Bisacodyl (Dulcolax) 5 mg DAILY PRN PO .CONSTIPATION; Start 01/11/19 at 20:30 Furosemide (Lasix) 20 mg DAILY IV Last administered on 01/17/19at 08:39; Admin Do se 20 MG; Start 01/12/19 at 09:00 Hydromorphone HCl (Dilaudid) 1 mg Q4H PRN IV SEVERE PAIN LEVEL 7-10 Last administered on 01/17/19at 08:40; Admin Dose 1 MG; Start 01/11/19 at 22:30 Piperacillin Sod/ Tazobactam Sod 100 ml @ 200 mls/hr Q6 IVPB Last administered on 01/18/19at 05:35; Admin Dose 200 MLS/HR; Start 01/12/19 at 08:00 Diagnostic Test (Pha) (Accu-Chek) 1 ea 02 XX Last administered on 01/18/19at 01:10; Admin Dose 1 EA; Start 01/13/19 at 02:00 Morphine Sulfate (Ms Contin (Er)) 15 mg BID PO Last administered on 01/18/19 08:51; Admin Dose 15 MG; Start 01/12/19 at 11:00 Miscellaneous Information 1 ea NOTE XX ; Start 01/12/19 at 11:00 Glucose (Glutose) 15 gm Q15M PRN PO DECREASED GLUCOSE; Start 01/12/19 at 11:00 Glucose (Glutose) 22.5 gm Q15M PRN PO DECREASED GLUCOSE; Start 01/12/19 at 11:00 Dextrose (D50w Syringe) 25 ml Q15M PRN IV DECREASED GLUCOSE; Start 01/12/19 at 11:00 Dextrose (D50w Syringe) 50 ml Q15M PRN IV DECREASED GLUCOSE; Start 01/12/19 at 11:00 Glucagon (Glucagen) 1 mg Q15M PRN IM DECREASED GLUCOSE; Start 01/12/19 at 11:00 Glucose (Glutose) 15 gm Q15M PRN BUCCAL DECREASED GLUCOSE; Start 01/12/19 at 11:00 Atorvastatin Calcium (Lipitor) 40 mg HS PO Last administered on 01/17/19 19:58; Admin Dose 40 MG; Start 01/12/19 at 21:00 Insulin Aspart (Novolog Insulin Pen) NOVOLOG *MODERATE* ALGORITHM WITH MEALS BEDTIME SC Last administered on 01/18/19 07:58; Admin Dose 4 UNIT; Start 01/14/19 at 07:35 Apixaban (Eliquis) 5 mg BID PO Last administered on 01/17/19 08:39; Admin Dose 5 MG; Start 01/14/19 at 09:00; Status Hold Sodium Hypochlorite (Dakins Diluted ()) 1 applic DAILY TP Last administered on 01/18/19 08:52; Admin Dose 1 APPLIC; Start 01/14/19 at 13:00 Amiodarone HCl (Cordarone) 400 mg BID PO Last administered on 01/18/19 08:53; Admin Dose 400 MG; Start 01/15/19 at 10:30 Senna/Docusate Sodium (Senokot-S) 1 tab BID PO Last administered on 01/18/19 08:51; Admin Dose 1 TAB; Start 01/16/19 at 12:00 Insulin Aspart (Novolog Insulin Pen) 10 unit WITH MEALS SC Last administered on 01/18/19 07:58; Admin Dose 10 UNIT; Start 01/16/19 at 17:55 Insulin Glargine (Lantus) 22 units DAILY@2000 SC Last administered on 01/17/19 20:07; Admin Dose 22 UNITS; Start 01/16/19 at 20:00 Gentamicin Sulfate (Gentamicin 0.1% Oint) 1 applic TID TOP Last administered on 01/18/19 08:54; Admin Dose 1 APPLIC; Start 01/16/19 at 21:00 Naphazoline HCl/ Pheniramine Maleate (Naphcon A) 2 drop QID PRN BOTH EYES irritation; Start 01/16/19 at 18:00 Metoprolol Tartrate (Lopressor) 50 mg Q6 PO Last administered on 01/18/19 05:35; Admin Dose 50 MG; Start 01/17/19 at 18:00 Buddy Otto DO Jan 18, 2019 11:01
--- NOTE | 2019-01-18 14:17 | PN ---
Date/Time of Note Date/Time of Note DATE: 01/18/19 TIME: 14:12 Assessment/Plan VTE Prophylaxis Risk score (from Nsg)>0 risk: 8 Pharmacological prophylaxis: LMWH Lines/Catheters IV Catheter Type (from Nrsg): Peripheral IV Urinary Cath still in place: No (D/C as per order of MD) Assessment/Plan Hospital Course S: no new issues, harris is fairly well controlled, PT was again at bedside O : Constitutional: alert, oriented x3 Head: atraumatic, normocephalic Neck: non-tender, supple Respiratory: clear to auscultation Cardiovascular: regular rate and rhythm Gastrointestinal: S/ NT / ND / +BS Extremities: L foot bandaged Assessment and plan: 63-year-old male who was sent to the emergency room from the vascular surgeon's office because of severe left fourth and fifth digit pain. Patient has no known severe peripheral arterial disease with gangrene of the left fourth digit. He h as had angioplasty in the past which is reported to have failed. Patient was found to be in A. fib RVR upon arrival to the emergency room and is admitted and managed as follows: 1. Severe peripheral arterial disease -failed prior angioplasty -now status post lower extremity bypass January 13, 2019 2. Left lower extremity gangrene to fourth and fifth toes -Status post left fourth toe amputation on January 14, 2019 -Per patient he is planned for fifth toe amputation today -eliquis on hold 3. Atrial fibrillation status post RVR but now with improved rate control -Patient continued on amiodarone and beta-timmy therapy, consider dosage increase, cardiology managing. -anticoagulation on hold for today for surgery 4. Left lower extremity diabetic ulcer and cellulitis -Cultures growing Pseudomonas, Proteus and enterococcus -Continue antibiotics per ID 5. Acute renal insufficiency, Vanco related? CKD? -Vancomycin discontinued -Creatinine levels trending down nicely -Currently off IV fluids 6. Diabetes mellitus, hemoglobin A1c 10.2 -titrate insulin as indicated for optimization 7. Chronic dyslipidemia on statin therapy Plan: -5th gangerous toe amputation planned for today -Continue to monitor renal function, renal uSS -Patient is to be discharged to [facility] facility at discharge once cleared -downgrade to medsur if ok with cardio and if HR stable post op -Further interventions per clinical course. Result Diagram: 01/18/1954 01/18/19553 Results 24hrs Laboratory Tests Test 01/17/19 17:27 01/17/19 19:57 01/18/19 01:04 01/18/19 05:54 Bedside Glucose 244 H 261 H 199 White Blood Count 10.4 Red Blood Count 3.40 L Hemoglobin 8.4 L Hematocrit 27.9 L Mean Corpuscular Volume 82.1 Mean Corpuscular 24.7 L Hemoglobin Mean Corpuscular 30.1 L Hemoglobin Concent Red Cell Distribution 14.8 H Width Platelet Count 371 Mean Platelet Volume 9.8 Immature Granulocytes % 0.700 H Neutrophils % 57.5 Lymphocytes % 23.5 Monocytes % 11.6 H Eosinophils % 6.0 Basophils % 0.7 Nucleated Red Blood 0.2 H Cells % Immature Granulocytes # 0.070 H Neutrophils # 6.0 Lymphocytes # 2.4 Monocytes # 1.2 H Eosinophils # 0.6 H Basophils # 0.1 Nucleated Red Blood 0.0 Cells # Sodium Level 139 Potassium Level 3.8 Chloride Level 102 Carbon Dioxide Level 27 Anion Gap 10 Blood Urea Nitrogen 28 H Creatinine 1.42 H Glucose Level 177 Calcium Level 8.2 L Phosphorus Level 4.0 Magnesium Level 1.9 Albumin 3.1 L Test 01/18/19 07:53 01/18/19 12:28 Bedside Glucose 194 207 Exam/Review of Systems Exam Vitals Vital Signs Date Temp Pulse Resp B/P (MAP) Pulse Ox O2 O2 Flow FiO2 Time Delivery Rate 01/18/19 66 12:48 01/18/19 98.3 16 118/76 99 11:40 (90) 01/18/19 Nasal 3.0 07:46 Cannula Intake and Output 01/17/19 01/17/19 01/18/19 1515:00 23:00 07:00 IntakeIntake Total 1370 ml 540 ml OutputOutput Total 1900 ml BalanceBalance -530 ml 540 ml Results Results 24hrs Laboratory Tests Test 01/17/19 17:27 01/17/19 19:57 01/18/19 01:04 01/18/19 05:54 Bedside Glucose 244 H 261 H 199 White Blood Count 10.4 Red Blood Count 3.40 L Hemoglobin 8.4 L Hematocrit 27.9 L Mean Corpuscular Volume 82.1 Mean Corpuscular 24.7 L Hemoglobin Mean Corpuscular 30.1 L Hemoglobin Concent Red Cell Distribution 14.8 H Width Platelet Count 371 Mean Platelet Volume 9.8 Immature Granulocytes % 0.700 H Neutrophils % 57.5 Lymphocytes % 23.5 Monocytes % 11.6 H Eosinophils % 6.0 Basophils % 0.7 Nucleated Red Blood 0.2 H Cells % Immature Granulocytes # 0.070 H Neutrophils # 6.0 Lymphocytes # 2.4 Monocytes # 1.2 H Eosinophils # 0.6 H Basophils # 0.1 Nucleated Red Blood 0.0 Cells # Sodium Level 139 Potassium Level 3.8 Chloride Level 102 Carbon Dioxide Level 27 Anion Gap 10 Blood Urea Nitrogen 28 H Creatinine 1.42 H Glucose Level 177 Calcium Level 8.2 L Phosphorus Level 4.0 Magnesium Level 1.9 Albumin 3.1 L Test 01/18/19 07:53 01/18/19 12:28 Bedside Glucose 194 207 Medications Medication Current Medications Morphine Sulfate (morphine) 4 mg Q3 PRN IV severe pain Last administered on 01/18/19at 06:04; Admin Dose 4 MG; Start 01/11/19 at 19:00 IV Flush (NS 3 ml) 3 ml PER PROTOCOL IV ; Start 01/11/19 at 20:30 Ondansetron HCl (Zofran Inj) 4 mg Q6H PRN IV NAUSEA/VOMITING; Start 01/11/19 at 20:30 Acetaminophen (Tylenol Tab) 650 mg Q6H PRN PO .PAIN 1-3 OR TEMP Last administered on 01/16/19at 20:37; Admin Dose 650 MG; Start 01/11/19 at 20:30 Docusate Sodium (Colace) 100 mg Q12H PRN PO .CONSTIPATION; Start 01/11/19 at 20:30 Bisacodyl (Dulcolax) 5 mg DAILY PRN PO .CONSTIPATION; Start 01/11/19 at 20:30 Furosemide (Lasix) 20 mg DAILY IV Last administered on 01/17/19at 08:39; Admin Dose 20 MG; Start 01/12/19 at 09:00 Hydromorphone HCl (Dilaudid) 1 mg Q4H PRN IV SEVERE PAIN LEVEL 7-10 Last administered on 01/17/19at 08:40; Admin Dose 1 MG; Start 01/11/19 at 22:30 Piperacillin Sod/ Tazobactam Sod 100 ml @ 200 mls/hr Q6 IVPB Last administered on 01/18/19 12:24; Admin Dose 200 MLS/HR; Start 01/12/19 at 08:00 Diagnostic Test (Pha) (Accu-Chek) 1 ea 02 XX Last administered on 01/18/19 01:10; Admin Dose 1 EA; Start 01/13/19 at 02:00 Morphine Sulfate (Ms Contin (Er)) 15 mg BID PO Last administered on 01/18/19 08:51; Admin Dose 15 MG; Start 01/12/19 at 11:00 Miscellaneous Information 1 ea NOTE XX ; Start 01/12/19 at 11:00 Glucose (Glutose) 15 gm Q15M PRN PO DECREASED GLUCOSE; Start 01/12/19 at 11:00 Glucose (Glutose) 22.5 gm Q15M PRN PO DECREASED GLUCOSE; Start 01/12/19 at 11:00 Dextrose (D50w Syringe) 25 ml Q15M PRN IV DECREASED GLUCOSE; Start 01/12/19 at 11:00 Dextrose (D50w Syringe) 50 ml Q15M PRN IV DECREASED GLUCOSE; Start 01/12/19 at 11:00 Glucagon (Glucagen) 1 mg Q15M PRN IM DECREASED GLUCOSE; Start 01/12/19 at 11:00 Glucose (Glutose) 15 gm Q15M PRN BUCCAL DECREASED GLUCOSE; Start 01/12/19 at 11:00 Atorvastatin Calcium (Lipitor) 40 mg HS PO Last administered on 01/17/19 19:58; Admin Dose 40 MG; Start 01/12/19 at 21:00 Insulin Aspart (Novolog Insulin Pen) NOVOLOG *MODERATE* ALGORITHM WITH MEALS BEDTIME SC Last administered on 01/18/19 12:31; Admin Dose 4 UNIT; Start 01/14/19 at 07:35 Apixaban (Eliquis) 5 mg BID PO Last administered on 01/17/19 08:39; Admin Dose 5 MG; Start 01/14/19 at 09:00; Status Hold Sodium Hypochlorite (Dakins Diluted ()) 1 applic DAILY TP Last administered on 01/18/19 08:52; Admin Dose 1 APPLIC; Start 01/14/19 at 13:00 Amiodarone HCl (Cordarone) 400 mg BID PO Last administered on 01/18/19 08:53; Admin Dose 400 MG; Start 01/15/19 at 10:30 Senna/Docusate Sodium (Senokot-S) 1 tab BID PO Last administered on 01/18/19at 08:51; Admin Dose 1 TAB; Start 01/16/19 at 12:00 Insulin Aspart (Novolog Insulin Pen) 10 unit WITH MEALS SC Last administered on 01/18/19at 07:58; Admin Dose 10 UNIT; Start 01/16/19 at 17:55 Insulin Glargine (Lantus) 22 units DAILY@2000 SC Last administered on 01/17/19at 20:07; Admin Dose 22 UNITS; Start 01/16/19 at 20:00 Gentamicin Sulfate (Gentamicin 0.1% Oint) 1 applic TID TOP Last administered on 01/18/19at 12:25; Admin Dose 1 APPLIC; Start 01/16/19 at 21:00 Naphazoline HCl/ Pheniramine Maleate (Naphcon A) 2 drop QID PRN BOTH EYES irritation; Start 01/16/19 at 18:00 Metoprolol Tartrate (Lopressor) 50 mg Q8 PO ; Start 01/18/19 at 14:00 BERKLEY MENDEZ Jan 18, 2019 14:17
[2019-01-18] MEDS ORDERED: LIDOCAINE 1% (MPF) 30 ML INJ ONE (15:39)
--- NOTE | 2019-01-18 15:54 | PREAC ---
Date/Time of Note Date/Time of Note DATE: 01/18/19 TIME: 15:51 Anesthesia Eval and Record Evaluation Time Pre-Procedure Interview DATE: 01/18/19 TIME: 15:51 Age 63 Sex male NPO: 8 hrs Preoperative diagnosis 5th toe necrosis Planned procedure left foot 5th toe amputation, debridement of ulceration, possible allograft application Past Medical History Past Medical History: Includes Cardio: HTN, Dyslipidemia, Arrythmia, CHF Endo: Diabetes Renal: CKD Heme: Anemia Surgery & Anesthesia Issues No known issue Meds Anticoagulation: No Beta Wilder within 24 hr: Yes Reason Beta Wilder not given: Bradycarida, Hypotension Reported Medications Ascorbic Acid (Vitamin C) 500 Mg Tab, 500 MG PO DAILY, TAB 01/12/19 Thiamine* (Vitamin B-1*) 100 Mg Tablet, 100 MG PO DAILY, TAB 01/12/19 Sennosides* (Senna Lax*) 8.6 Mg Tablet, 1 TAB PO QHS, TAB 01/12/19 Protein Supplement (Promod) 946 Ml Liquid, 946 ML PO 01/12/19 Clopidogrel Bisulfate (Clopidogrel) 75 Mg Tablet, 75 MG PO DAILY, #30 TAB 01/12/19 Hydrocodone/Acetaminophen ([place] 10-325 Tablet) 1 Each Tablet, 1 EACH PO Q4, TAB 01/12/19 Multivitamins* (Theragran*) 1 Tab Tab, 1 TAB PO DAILY, TAB 01/12/19 Metoprolol Succinate* (Toprol XL*) 25 Mg Tab.sr.24h, 25 MG PO DAILY, #30 TAB 01/12/19 Metformin Hcl* (Metformin Hcl*) 1,000 Mg Tablet, 1000 MG PO WITH BREAKFAST DINNE, #30 TAB 01/12/19 Losartan Potassium* (Losartan Potassium*) 100 Mg Tablet, 100 MG PO DAILY, TAB 01/12/19 Furosemide* (Lasix*) 20 Mg Tablet, 20 MG PO DAILY, TAB 01/12/19 Insulin Glargine* (Lantus*) 100 Unit/Ml Soln, 1 UNIT SC QHS, #1 VIAL 01/12/19 Glipizide (Glipizide ER) 5 Mg Tab.er.24, 5 MG PO ACBD A, TAB 01/12/19 Gabapentin* (Gabapentin*) 600 Mg Tablet, 600 MG PO TID, #90 TAB 01/12/19 Folic Acid* (Folic Acid*) 1 Mg Tablet, 1 MG PO DAILY, TAB 01/12/19 Mineral Oil* (Fleet* Mineral Oil Enema) 133 Ml Oil, 133 ML [place] NEEDED PRN for CONSTIPATION, ENEMA 01/12/19 Bisacodyl* (Dulcolax*) 5 Mg Tablet.dr, 10 MG PO DAILY PRN for CONSTIPATION, TAB 01/12/19 Atorvastatin Calcium* (Atorvastatin Calcium*) 20 Mg Tablet, 20 MG PO QHS, #30 TAB 01/12/19 Aspirin* (Aspirin* EC) 81 Mg Tablet.dr, 81 MG PO DAILY, TAB 01/12/19 Current Medications Morphine Sulfate (morphine) 4 mg Q3 PRN IV severe pain Last administered on 01/18/19at 06:04; Admin Dose 4 MG; Start 01/11/19 at 19:00 IV Flush (NS 3 ml) 3 ml PER PROTOCOL IV ; Start 01/11/19 at 20:30 Ondansetron HCl (Zofran Inj) 4 mg Q6H PRN IV NAUSEA/VOMITING; Start 01/11/19 at 20:30 Acetaminophen (Tylenol Tab) 650 mg Q6H PRN PO .PAIN 1-3 OR TEMP Last administered on 01/16/19at 20:37; Admin Dose 650 MG; Start 01/11/19 at 20:30 Docusate Sodium (Colace) 100 mg Q12H PRN PO .CONSTIPATION; Start 01/11/19 at 20:30 Bisacodyl (Dulcolax) 5 mg DAILY PRN PO .CONSTIPATION; Start 01/11/19 at 20:30 Furosemide (Lasix) 20 mg DAILY IV Last administered on 01/17/19at 08:39; Admin Dose 20 MG; Start 01/12/19 at 09:00 Hydromorphone HCl (Dilaudid) 1 mg Q4H PRN IV SEVERE PAIN LEVEL 7-10 Last administered on 01/17/19at 08:40; Admin Dose 1 MG; Start 01/11/19 at 22:30 Piperacillin Sod/ Tazobactam Sod 100 ml @ 200 mls/hr Q6 IVPB Last administered on 01/18/19at 12:24; Admin Dose 200 MLS/HR; Start 01/12/19 at 08:00 Diagnostic Test (Pha) (Accu-Chek) 1 02 XX Last administered on 01/18/19 01:10; Admin Dose 1 EA; Start 01/13/19 at 02:00 Morphine Sulfate (Ms Contin (Er)) 15 mg BID PO Last administered on 01/18/19 08:51; Admin Dose 15 MG; Start 01/12/19 at 11:00 Miscellaneous Information 1 ea NOTE XX ; Start 01/12/19 at 11:00 Glucose (Glutose) 15 gm Q15M PRN PO DECREASED GLUCOSE; Start 01/12/19 at 11:00 Glucose (Glutose) 22.5 gm Q15M PRN PO DECREASED GLUCOSE; Start 01/12/19 at 11:00 Dextrose (D50w Syringe) 25 ml Q15M PRN IV DECREASED GLUCOSE; Start 01/12/19 at 11:00 Dextrose (D50w Syringe) 50 ml Q15M PRN IV DECREASED GLUCOSE; Start 01/12/19 at 11:00 Glucagon (Glucagen) 1 mg Q15M PRN IM DECREASED GLUCOSE; Start 01/12/19 at 11:00 Glucose (Glutose) 15 gm Q15M PRN BUCCAL DECREASED GLUCOSE; Start 01/12/19 at 11:00 Atorvastatin Calcium (Lipitor) 40 mg HS PO Last administered on 01/17/19 19:58; Admin Dose 40 MG; Start 01/12/19 at 21:00 Insulin Aspart (Novolog Insulin Pen) NOVOLOG *MODERATE* ALGORITHM WITH MEALS BEDTIME SC Last administered on 01/18/19 12:31; Admin Dose 4 UNIT; Start 01/14/19 at 07:35 Apixaban (Eliquis) 5 mg BID PO Last administered on 01/17/19 08:39; Admin Dose 5 MG; Start 01/14/19 at 09:00; Status Hold Sodium Hypochlorite (Dakins Diluted ()) 1 applic DAILY TP Last administered on 01/18/19 08:52; Admin Dose 1 APPLIC; Start 01/14/19 at 13:00 Amiodarone HCl (Cordarone) 400 mg BID PO Last administered on 01/18/19 08:53; Admin Dose 400 MG; Start 01/15/19 at 10:30 Senna/Docusate Sodium (Senokot-S) 1 tab BID PO Last administered on 01/18/19 08:51; Admin Dose 1 TAB; Start 01/16/19 at 12:00 Insulin Aspart (Novolog Insulin Pen) 10 unit WITH MEALS SC Last administered on 01/18/19at 07:58; Admin Dose 10 UNIT; Start 01/16/19 at 17:55 Gentamicin Sulfate (Gentamicin 0.1% Oint) 1 applic TID TOP Last administered on 01/18/19at 12:25; Admin Dose 1 APPLIC; Start 01/16/19 at 21:00 Naphazoline HCl/ Pheniramine Maleate (Naphcon A) 2 drop QID PRN BOTH EYES irritation; Start 01/16/19 at 18:00 Metoprolol Tartrate (Lopressor) 50 mg Q8 PO ; Start 01/18/19 at 14:00 Insulin Glargine (Lantus) 28 units DAILY@2000 SC ; Start 01/18/19 at 20:00 Meds reviewed: Yes Allergies Coded Allergies: No Known Allergy (Unverified , 07/21/14) Allergies Reviewed: Yes Labs/Studies Labs Reviewed: Reviewed by anesthesiologist Result Diagram: 01/18/19 0554 01/18/19 0554 Laboratory Tests 01/18/19 05:54 test: N/A Studies: ECG, CXR, 2D Echo Pre-procedure Exam Last vitals Vital Signs Date Temp Pulse Resp B/P (MAP) Pulse Ox O2 O2 Flow FiO2 Time Delivery Rate 01/18/19 98.8 68 17 122/77 98 15:17 (92) 01/18/19 Nasal 3.0 07:46 Cannula Airway: Adequate mouth opening, Adequate thyromental dist Mallampati: Mallampati II Teeth: Normal Lung: Normal Heart: Normal ASA Physical Status ASA physical status: 3 Emergency: None Planned Anesthetic General/MAC: Mask Planned Pain Management Parenteral pain med, Local by surgeon Pre-operative Attestations Prior to commencing anesthesia and surgery, the patient was re-evaluated, there was verification of: *The patient's identity *The results of appropriate recent lab work and preoperative vital signs *The above evaluation not changing prior to induction *Anesthetic plan, risk benefits, alternative and complications discussed with patient/family; questions answered; patient/family understands, accepts and wishes to proceed. GAUTAM BANGURA MD Jan 18, 2019 15:54
[2019-01-18] MEDS ORDERED: LIDOCAINE 2% (SDV) 5 ML INJ ONE (16:39)
[2019-01-18] MEDS ORDERED: FENTAnyl 50 MCG/ML VIAL ONE (16:39)
[2019-01-18] MEDS ORDERED: PROPOFOL 20 ML ONE (16:39)
[2019-01-18] MEDS ORDERED: MIDAZOLAM 1 MG/ML 2 ML INJ ONE (16:39)
[2019-01-18] MEDS ORDERED: METOCLOPRAMIDE 10 MG INJ ONE (16:55)
[2019-01-18] MEDS ORDERED: ONDANSETRON 4 MG INJ ONE (16:55)
[2019-01-18] MEDS ORDERED: EPHEDrine 25 MG/5 ML SYG ONE (17:08)
--- NOTE | 2019-01-18 17:24 | SIPON ---
Date/Time of Note Date/Time of Note DATE: 01/18/19 TIME: 17:22 Operative Report Preoperative Diagnosis Left foot ulceration h/o 4th toe amputation Gangrene 5th toe s/p left le BG OM left foot Postoperative Diagnosis same Operation/Procedure Performed Left excisional debridement skin, subcut, tendon, bone 4th metatarsal Left foot 5th toe amputation at MPJ Open packing of ulceration Surgeon see signature line education assistant none Anesthesia: MAC Estimated blood loss: 10 - 50 ml's Transfusion Required none Specimen left 5th toe bone culture 4th metatarsal Grafts/Implants none Complications none NORMAN IVORY DPM Jan 18, 2019 17:24
--- NOTE | 2019-01-18 17:25 | PAC ---
Date/Time of Note Date/Time of Note DATE: 01/18/19 TIME: 17:23 Post-Anesthesia Notes Post-Anesthesia Note Last documented vital signs Vital Signs Date Temp Pulse Resp B/P (MAP) Pulse Ox O2 O2 Flow FiO2 Time Delivery Rate 01/18/19 67 16:36 01/18/19 99 Nasal 2.0 16:15 Cannula 01/18/19 98.0 125/69 16:00 (87) Activity: WNL Respiratory function: WNL Cardiovascular function: WNL Mental status: Baseline Pain reasonably controlled: Yes Hydration appropriate: Yes Nausea/Vomiting absent: Yes Comments BP: 112/66 HR: 79 RR: 15 T: 98 SaO2: 98% GAUTAM BANGURA MD Jan 18, 2019 17:24
[2019-01-18] MEDS ORDERED: FENTAnyl 50 MCG/ML VIAL IV PRN (17:30)
[2019-01-18] MEDS ORDERED: ONDANSETRON 4 MG INJ IV PRN (17:30)
[2019-01-18] MEDS ORDERED: DIPHENHYDRAMINE 50 MG INJ IV PRN (17:30)
[2019-01-18] MEDS ORDERED: MEPERIDINE 25 MG INJ IV PRN (17:30)
[2019-01-18] MEDS ORDERED: PROCHLORPERAZINE 10 MG INJ IV PRN (17:30)
[2019-01-18] MEDS ORDERED: HYDROmorphONE 1 MG/5 ML IV SYRINGE IV PRN ×3 (17:30)
[2019-01-18] MEDS: LACTATED RINGER'S 1,000 ML IV SCH (17:54)
[2019-01-18] MEDS ORDERED: INSULIN GLARGINE [LANTus] (100 UNITS/ML) SYG SC SCH (20:00)
[2019-01-18] MEDS: ATORVASTATIN 40 MG TAB PO SCH (20:09)
--- NOTE | 2019-01-18 20:09 | OPR ---
DATE OF OPERATION: 01/18/2019 SURGEON: Norman Schwarz DPM FLOAT PHLEBOTOMIST: None. PREOPERATIVE DIAGNOSES: 1. Left foot diabetic foot ulceration, infected. 2. Osteomyelitis. 3. Gangrene, left fifth toe. 4. Peripheral arterial disease, status post left lower extremity bypass graft. 5. Open surgical wound status post fourth toe amputation. POSTOPERATIVE DIAGNOSES: 1. Left foot diabetic foot ulceration, infected. 2. Osteomyelitis. 3. Gangrene left fifth toe. 4. Peripheral arterial disease status post left lower extremity bypass graft. 5. Open surgical wound status post fourth toe amputation. OPERATION: 1. Left foot excisional debridement of skin, subcutaneous tissue, tendon and bone fourth metatarsal less than 20 cm2. 2. Left foot fifth toe amputation at the metatarsophalangeal joint. 3. Open packing of ulceration. PATHOLOGY: Bone cultures fourth metatarsal and amputated toe. ANESTHESIA: MAC with local 10 mL of lidocaine 1% plain. COMPLICATIONS: None. MATERIALS: 3-0 nylon. ESTIMATED BLOOD LOSS: 10 to 50 mL INDICATION FOR PROCEDURE: This is a 63-year-old gentleman who is status post open revascularization with a left pop to plantar bypass with non-reversed GSV has had a fourth toe amputation, open and fur ther demarcation of gangrenous tissue involving the fifth toe. The patient presents for staged surgi pooja intervention. The patient requesting attempts at salvage of the healthy appearing toes. Informe d consent was obtained. The patient has been on Zosyn. Discussed with family preoperatively and all questions answered to her satisfaction. The foot was marked in the preoperative holding area. PROCEDURE IN DETAIL: The patient brought into the operating room and placed in the supine position. Formal timeout was performed. The foot was properly marked, confirmed by the surgical team, prepped with Betadine scrub and paint, draped in the usual sterile fashion. At this time, using a pickup, a 15 blade, the gangrenous tissue on the plantar aspect was excised, it is full thickness down to caps ule. The bone at the fourth metatarsal was necrotic appearing rongeur was used to debride this and b one cultures obtained. The skin at the dorsal aspect of the fifth toe was incised in the metatarsoph alangeal joint and the toe was disarticulated. The wound was copiously irrigated and amputated. Toe was sent for pathology and due to concern for persistent infection and poor granulation at this time , the allograft was not applied. The wound was cleansed with chlorhexidine and applied a foam dressi dc followed by Ana. The patient tolerated the procedure well. Estimated blood loss of 1 0 mL. The patient had injection of 10 mL of lidocaine 1% plain. The patient transferred to PACU wit h vital signs stable. Dictated By: NORMAN JONES/VIRGIE Conf#: [id number] DID#: [id number]
[2019-01-18] MEDS: NAPHAZOLINE/PHENIRAMINE 15 ML OPH BOTH EYES PRN (20:12)
[2019-01-18] MEDS: HYDROmorphONE 1 MG/ML SYG IV PRN (23:51)
[2019-01-19] VITALS (10 sets, daily range): BP systolic 106–134; BP diastolic 62–84; PULSE 70–110; RESP 16–20
[2019-01-19] MEDS: morphine 4 MG/ML VIAL IV PRN ×3 (02:03→14:06)
[2019-01-19] MEDS: ACCU-CHEK XX SCH (02:07)
[2019-01-19] MEDS: HYDROmorphONE 1 MG/ML SYG IV PRN (04:04)
[2019-01-19] MEDS: LACTATED RINGER'S 1,000 ML IV SCH (04:04)
[2019-01-19] MEDS: METOPROLOL 50 MG TAB PO SCH ×2 (05:30→20:17)
[2019-01-19] MEDS: PIPER-TAZO 3.375 GM IV (PMX) 100 ML IVPB SCH ×3 (05:30→17:29)
--- NOTE | 2019-01-19 07:45 | CONS ---
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 s/p L pop-plantar artery bypass and then s/p 4th toe amputation 5th toe and forefoot area of gangrene had not been demarcated cx from amputation surgery has GNR and GPC continue with vanco/zosyn 01/17 - cx did not grow MRSA, d/c vanco pseudomonas, proteus and enterococcus all sensitive to zosyn, continue with this pt awaits further surgery regarding 5th toe 01/19 - renal function is stable and a bit improved 5th toe was amputated and bone biopsy with cx was taken, await results continue with zosyn if biopsy is neg for osteo then would continue zosyn thru 01/26 but if osteo still present then continue thru 02/23/19 check ESR in a.m. 2) DM his HgbA1C is elevated 3) increase in creatinine 01/15 - pt has good urine output continue to monitor may need to adjust antibiotics if creatinine continues to worsen 01/17 - d/c vanco, continue with zosyn at present 01/19 - creatinine improved a bit ok to continue with zosyn Consultation Date/Type/Reason Admit Date/Time January 11, 2019 at 18:31 Initial Consult Date 01/12/19 Type of Consult ID Date/Time of Note DATE: 01/19/19 TIME: 07:41 24 HR Interval Summary Free Text/Dictation pt got 5th toe amputated yesterday no N, V breathing is ok Exam/Review of Systems Exam Vitals Vital Signs Date Temp Pulse Resp B/P (MAP) Pulse Ox O2 O2 Flow FiO2 Time Delivery Rate 01/19/19 98.7 70 16 108/76 94 07:40 (87) 01/19/19 3.0 05:43 01/18/19 Nasal 20:00 Cannula Intake and Output 01/18/19 01/18/19 01/19/19 1515:00 23:00 07:00 IntakeIntake Total 100 ml 800 ml 400 ml OutputOutput Total 702 ml 1000 ml BalanceBalance 100 ml 98 ml -600 ml Constitutional: alert Eyes: nl sclera ENMT: mucosa pink and moist Respiratory: clear to auscultation Cardiovascular: regular rate and rhythm Gastrointestinal: soft, non-tender Extremities: other (L foot is bandaged) Results Result Diagram: 01/19/19 0557 01/19/19 0557 Results 24hrs Laboratory Tests Test 01/18/19 07:53 01/18/19 12:28 01/18/19 15:40 01/18/19 18:11 Bedside Glucose 194 207 158 155 Test 01/18/19 20:15 01/19/19 01:53 01/19/19 05:57 Bedside Glucose 213 161 White Blood Count 9.2 Red Blood Count 3.20 L Hemoglobin 8.1 L Hematocrit 26.5 L Mean Corpuscular Volume 82.8 Mean Corpuscular 25.3 L Hemoglobin Mean Corpuscular 30.6 L Hemoglobin Concent Red Cell Distribution 14.9 H Width Platelet Count 351 Mean Platelet Volume 9.5 Immature Granulocytes % 0.500 H Neutrophils % 66.6 Lymphocytes % 14.3 L Monocytes % 12.5 H Eosinophils % 5.3 Basophils % 0.8 Nucleated Red Blood 0.2 H Cells % Immature Granulocytes # 0.050 H Neutrophils # 6.1 Lymphocytes # 1.3 Monocytes # 1.2 H Eosinophils # 0.5 Basophils # 0.1 Nucleated Red Blood 0.0 Cells # Sodium Level 139 Potassium Level 3.7 Chloride Level 103 Carbon Dioxide Level 27 Anion Gap 9 Blood Urea Nitrogen 23 H Creatinine 1.36 H Est Glomerular Filtrat 53 L Rate mL/min Glucose Level 139 Calcium Level 8.6 Phosphorus Level 3.8 Magnesium Level 1.9 Medications Medication Current Medications Morphine Sulfate (morphine) 4 mg Q3 PRN IV severe pain Last administered on at 02:03; Admin Dose 4 MG; Start 01/11/19 at 19:00 IV Flush (NS 3 ml) 3 ml PER PROTOCOL IV ; Start 01/11/19 at 20:30 Ondansetron HCl (Zofran Inj) 4 mg Q6H PRN IV NAUSEA/VOMITING; Start 01/11/19 at 20:30 Acetaminophen (Tylenol Tab) 650 mg Q6H PRN PO .PAIN 1-3 OR TEMP Last administered on 01/16/19at 20:37; Admin Dose 650 MG; Start 01/11/19 at 20:30 Docusate Sodium (Colace) 100 mg Q12H PRN PO .CONSTIPATION; Start 01/11/19 at 20:30 Bisacodyl (Dulcolax) 5 mg DAILY PRN PO .CONSTIPATION; Start 01/11/19 at 20:30 Furosemide (Lasix) 20 mg DAILY IV Last administered on 01/17/19at 08:39; Admin Dose 20 MG; Start 01/12/19 at 09:00 Hydromorphone HCl (Dilaudid) 1 mg Q4H PRN IV SEVERE PAIN LEVEL 7-10 Last administered on 01/19/19at 04:04; Admin Dose 1 MG; Start 01/11/19 at 22:30 Piperacillin Sod/ Tazobactam Sod 100 ml @ 200 mls/hr Q6 IVPB Last administered on 01/19/19at 05:30; Admin Dose 200 MLS/HR; Start 01/12/19 at 08:00 Diagnostic Test (Pha) (Accu-Chek) 1 ea 02 XX Last administered on 01/19/19at 02:07; Admin Dose 1 EA; Start 01/13/19 at 02:00 Morphine Sulfate (Ms Contin (Er)) 15 mg BID PO Last administered on 01/18/19at 20:07; Admin Dose 15 MG; Start 01/12/19 at 11:00 Miscellaneous Information 1 ea NOTE XX ; Start 01/12/19 at 11:00 Glucose (Glutose) 15 gm Q15M PRN PO DECREASED GLUCOSE; Start 01/12/19 at 11:00 Glucose (Glutose) 22.5 gm Q15M PRN PO DECREASED GLUCOSE; Start 01/12/19 at 11: 00 Dextrose (D50w Syringe) 25 ml Q15M PRN IV DECREASED GLUCOSE; Start 01/12/19 at 11:00 Dextrose (D50w Syringe) 50 ml Q15M PRN IV DECREASED GLUCOSE; Start 01/12/19 at 11:00 Glucagon (Glucagen) 1 mg Q15M PRN IM DECREASED GLUCOSE; Start 01/12/19 at 11:00 Glucose (Glutose) 15 gm Q15M PRN BUCCAL DECREASED GLUCOSE; Start 01/12/19 at 11:00 Atorvastatin Calcium (Lipitor) 40 mg HS PO Last administered on 01/18/19 20:09; Admin Dose 40 MG; Start 01/12/19 at 21:00 Insulin Aspart (Novolog Insulin Pen) NOVOLOG *MODERATE* ALGORITHM WITH MEALS BEDTIME SC Last administered on 01/18/19 21:24; Admin Dose 1 UNIT; Start 01/14/19 at 07:35 Apixaban (Eliquis) 5 mg BID PO Last administered on 01/17/19 08:39; Admin Dose 5 MG; Start 01/14/19 at 09:00; Status Hold Sodium Hypochlorite (Dakins Diluted ()) 1 applic DAILY TP Last administered on 01/18/19 08:52; Admin Dose 1 APPLIC; Start 01/14/19 at 13:00 Amiodarone HCl (Cordarone) 400 mg BID PO Last administered on 01/18/19 20:09; Admin Dose 400 MG; Start 01/15/19 at 10:30 Senna/Docusate Sodium (Senokot-S) 1 tab BID PO Last administered on 01/18/19 20:07; Admin Dose 1 TAB; Start 01/16/19 at 12:00 Insulin Aspart (Novolog Insulin Pen) 10 unit WITH MEALS SC Last administered on 01/18/19 07:58; Admin Dose 10 UNIT; Start 01/16/19 at 17:55 Naphazoline HCl/ Pheniramine Maleate (Naphcon A) 2 drop QID PRN BOTH EYES irritation Last administered on 01/18/19 20:12; Admin Dose 2 DROP; Start 01/16/19 at 18:00 Metoprolol Tartrate (Lopressor) 50 mg Q8 PO Last administered on 01/19/19 05:30; Admin Dose 50 MG; Start 01/18/19 at 14:00 Insulin Glargine (Lantus) 28 units DAILY@2000 SC Last administered on 01/18/19 21:24; Admin Dose 28 UNITS; Start 01/18/19 at 20:00 Lactated Ringer's 1,000 ml @ 100 mls/hr Q10H IV Last administered on 01/19/19at 04:04; Admin Dose 100 MLS/HR; Start 01/18/19 at 17:22 Gentamicin Sulfate (Gentamicin 0.1% Oint) 1 applic TID TOP ; Start 01/18/19 at 21:00 PHANI MCCULLOUGH MD Jan 19, 2019 07:45
[2019-01-19] MEDS: AMIODARONE 200 MG TAB PO SCH ×2 (08:07→20:17)
[2019-01-19] MEDS: FUROSEMIDE 20 MG INJ IV SCH (08:10)
[2019-01-19] MEDS: SENNA/DOCUSATE NA (8.6MG/50MG) TAB PO SCH ×2 (08:11→20:16)
[2019-01-19] MEDS: morphine (ER) 15 MG TAB PO SCH (08:11)
[2019-01-19] MEDS: GENTAMICIN 0.1% 15 GM OINT TOP SCH ×3 (08:11→21:22)
[2019-01-19] MEDS: DAKINS 0.0125%(1/40) 473 ML SOLUTION TP SCH (08:11)
[2019-01-19] MEDS: INSULIN ASPART [NOVOLOG] 3 ML PEN SC SCH ×7 (08:16→20:58)
[2019-01-19] MEDS ORDERED: MAGNESIUM SULFATE 2 GM/50 ML 50 ML IVPB ONE (11:30)
--- NOTE | 2019-01-19 11:30 | CONS ---
Assessment/Plan Assessment/Plan Hospital Course (Demo Recall) Paroxysmal atrial fibrillation LVEF 50-55% Critical limb ischemia with gangrene s/p surgical revascularization 01/13/19 and debridement on 01/14/2019 Diabetes, uncontrolled Hypertension Dyslipidemia Peripheral arterial disease Patient currently in sinus rhythm Decrease metoprolol to 50 mg p.o. twice daily Upon discharge, decrease amiodarone to 200 mg p.o. twice daily for 1 week and then 200 mg daily Restart anticoagulation when okay by surgery Will order magnesium supplementation Consultation Date/Type/Reason Admit Date/Time January 11, 2019 at 18:31 Initial Consult Date 01/12/19 Type of Consult Cardiology Date/Time of Note DATE: 01/19/19 TIME: 11:29 24 HR Interval Summary Free Text/Dictation No shortness of breath, chest pain or palpitations Exam/Review of Systems Vital Signs Vitals Vital Signs Date Temp Pulse Resp B/P (MAP) Pulse Ox O2 O2 Flow FiO2 Time Delivery Rate 01/19/19 98.8 75 16 106/62 94 11:14 (77) 01/19/19 3.0 05:43 01/18/19 Nasal 20:00 Cannula Intake and Output 01/18/19 01/18/19 01/19/19 1515:00 23:00 07:00 IntakeIntake Total 100 ml 800 ml 400 ml OutputOutput Total 702 ml 1000 ml BalanceBalance 100 ml 98 ml -600 ml Exam Constitutional: alert, oriented (No apparent distress) Head: normocephalic Respiratory: clear to auscultation, normal air movement Cardiovascular: regular rate and rhythm (S1-S2 heard) Gastrointestinal: soft, non-tender, bowel sounds Extremities: other (Bandage lower extremity) Labs Result Diagram: 01/19/19 0557 01/19/19 0557 Results 24hrs Laboratory Tests Test 01/18/19 12:28 01/18/19 15:40 01/18/19 18:11 01/18/19 20:15 Bedside Glucose 207 158 155 213 Test 01/19/19 01:53 01/19/19 05:57 01/19/19 08:05 Bedside Glucose 161 146 White Blood Count 9.2 Red Blood Count 3.20 L Hemoglobin 8.1 L Hematocrit 26.5 L Mean Corpuscular Volume 82.8 Mean Corpuscular 25.3 L Hemoglobin Mean Corpuscular 30.6 L Hemoglobin Concent Red Cell Distribution 14.9 H Width Platelet Count 351 Mean Platelet Volume 9.5 Immature Granulocytes % 0.500 H Neutrophils % 66.6 Lymphocytes % 14.3 L Monocytes % 12.5 H Eosinophils % 5.3 Basophils % 0.8 Nucleated Red Blood 0.2 H Cells % Immature Granulocytes # 0.050 H Neutrophils # 6.1 Lymphocytes # 1.3 Monocytes # 1.2 H Eosinophils # 0.5 Basophils # 0.1 Nucleated Red Blood 0.0 Cells # Sodium Level 139 Potassium Level 3.7 Chloride Level 103 Carbon Dioxide Level 27 Anion Gap 9 Blood Urea Nitrogen 23 H Creatinine 1.36 H Est Glomerular Filtrat 53 L Rate mL/min Glucose Level 139 Calcium Level 8.6 Phosphorus Level 3.8 Magnesium Level 1.9 Medications Medications Current Medications Morphine Sulfate (morphine) 4 mg Q3 PRN IV severe pain Last administered on 01/19/19at 10:49; Admin Dose 4 MG; Start 01/11/19 at 19:00 IV Flush (NS 3 ml) 3 ml PER PROTOCOL IV ; Start 01/11/19 at 20:30 Ondansetron HCl (Zofran Inj) 4 mg Q6H PRN IV NAUSEA/VOMITING; Start 01/11/19 at 20:30 Acetaminophen (Tylenol Tab) 650 mg Q6H PRN PO .PAIN 1-3 OR TEMP Last administered on 01/16/19at 20:37; Admin Dose 650 MG; Start 01/11/19 at 20:30 Docusate Sodium (Colace) 100 mg Q12H PRN PO .CONSTIPATION; Start 01/11/19 at 20:30 Bisacodyl (Dulcolax) 5 mg DAILY PRN PO .CONSTIPATION; Start 01/11/19 at 20:30 Piperacillin Sod/ Tazobactam Sod 100 ml @ 200 mls/hr Q6 IVPB Last administered on 01/19/19at 05:30; Admin Dose 200 MLS/HR; Start 01/12/19 at 08:00 Diagnostic Test (Pha) (Accu-Chek) 1 ea 02 XX Last administered on 01/19/19at 02:07; Admin Dose 1 EA; Start 01/13/19 at 02:00 Miscellaneous Information 1 ea NOTE XX ; Start 01/12/19 at 11:00 Glucose (Glutose) 15 gm Q15M PRN PO DECREASED GLUCOSE; Start 01/12/19 at 11:00 Glucose (Glutose) 22.5 gm Q15M PRN PO DECREASED GLUCOSE; Start 01/12/19 at 11: 00 Dextrose (D50w Syringe) 25 ml Q15M PRN IV DECREASED GLUCOSE; Start 01/12/19 at 11:00 Dextrose (D50w Syringe) 50 ml Q15M PRN IV DECREASED GLUCOSE; Start 01/12/19 at 11:00 Glucagon (Glucagen) 1 mg Q15M PRN IM DECREASED GLUCOSE; Start 01/12/19 at 11:00 Glucose (Glutose) 15 gm Q15M PRN BUCCAL DECREASED GLUCOSE; Start 01/12/19 at 11:00 Atorvastatin Calcium (Lipitor) 40 mg HS PO Last administered on 01/18/19 20:09; Admin Dose 40 MG; Start 01/12/19 at 21:00 Insulin Aspart (Novolog Insulin Pen) NOVOLOG *MODERATE* ALGORITHM WITH MEALS BEDTIME SC Last administered on 01/19/19 08:16; Admin Dose 2 UNIT; Start 01/14/19 at 07:35 Apixaban (Eliquis) 5 mg BID PO Last administered on 01/17/19 08:39; Admin Dose 5 MG; Start 01/14/19 at 09:00; Status Hold Sodium Hypochlorite (Dakins Diluted ()) 1 applic DAILY TP Last administered on 01/19/19 08:11; Admin Dose 1 APPLIC; Start 01/14/19 at 13:00 Amiodarone HCl (Cordarone) 400 mg BID PO Last administered on 01/19/19 08:07; Admin Dose 400 MG; Start 01/15/19 at 10:30 Senna/Docusate Sodium (Senokot-S) 1 tab BID PO Last administered on 01/19/19 08:11; Admin Dose 1 TAB; Start 01/16/19 at 12:00 Insulin Aspart (Novolog Insulin Pen) 10 unit WITH MEALS SC Last administered on 01/19/19 08:16; Admin Dose 10 UNIT; Start 01/16/19 at 17:55 Naphazoline HCl/ Pheniramine Maleate (Naphcon A) 2 drop QID PRN BOTH EYES irritation Last administered on 01/18/19 20:12; Admin Dose 2 DROP; Start 01/16/19 at 18:00 Metoprolol Tartrate (Lopressor) 50 mg Q8 PO Last administered on 01/19/19at 05:30; Admin Dose 50 MG; Start 01/18/19 at 14:00 Insulin Glargine (Lantus) 28 units DAILY@2000 SC Last administered on 01/18/19at 21:24; Admin Dose 28 UNITS; Start 01/18/19 at 20:00 Gentamicin Sulfate (Gentamicin 0.1% Oint) 1 applic TID TOP Last administered on 01/19/19at 08:11; Admin Dose 1 APPLIC; Start 01/18/19 at 21:00 Acetaminophen/ Hydrocodone Bitart ([place] (7.5-325)) 1 tab Q6H PRN PO MODERATE PAIN LEVEL 4-6; Start 01/19/19 at 11:00 Buddy Otto DO Jan 19, 2019 11:30
--- NOTE | 2019-01-19 13:45 | PN ---
Date/Time of Note Date/Time of Note DATE: 01/19/19 TIME: 13:43 Assessment/Plan Lines/Catheters IV Catheter Type (from [facility]): Peripheral IV [place] in Place (from [facility]): No Assessment/Plan Assessment/Plan L pop-PT bypass patent with good pulse Further debridement of the foot per Dr. Schwarz Continue Eliquis Katharina will be removed next week Keep leg elevated when in bed Subjective 24 Hr Interval Summary No new c/o. Exam/Review of Systems Vital Signs Vitals Vital Signs Date Temp Pulse Resp B/P (MAP) Pulse Ox O2 O2 Flow FiO2 Time Delivery Rate 01/19/19 76 12:29 01/19/19 98.8 16 106/62 94 11:14 (77) 01/19/19 3.0 05:43 01/18/19 Nasal 20:00 Cannula Intake and Output 01/18/19 01/18/19 01/19/19 1515:00 23:00 07:00 IntakeIntake Total 100 ml 800 ml 400 ml OutputOutput Total 702 ml 1000 ml BalanceBalance 100 ml 98 ml -600 ml Exam Free Text/Dictation L leg edema improved, 2+ graft pulse, toes are warm and pink s/p 5th toe amputation last night - left open Results Result Diagram: 01/19/19 0557 01/19/19 0557 NICOLAS SAAB MD Jan 19, 2019 13:45
--- NOTE | 2019-01-19 14:13 | PN ---
DATE: 01/19/2019 SUBJECTIVE: The patient is postoperative day #1, left foot 5th toe amputation, debridement of ulcera tion. The patient denies any acute complaints. The patient did have a renal ultrasound which reveal s right nephrolithiasis and no evidence of hydronephrosis. Wound cultures are pending. OBJECTIVE: VITAL SIGNS: Temperature 98.7, pulse 70, respiratory rate 16, blood pressure is 108/76, pulse ox is 94 on 3 liters of nasal cannula. GENERAL: The patient is alert, oriented. EXTREMITIES: Dressings of left foot are clean, dry, intact. Fourth and fifth toe amputation. Adjac ent toes with immediate capillary refill. Extremities are warm. LABORATORIES: WBC 9.2, hemoglobin 8.1, hematocrit 26.5, platelets 351. Sodium 139, potassium 3.7, c hloride 103, CO2 of 27, BUN 23, creatinine 1.36. MICROBIOLOGY: Surgical specimen pathology is pending. Cultures are pending. ASSESSMENT: 1. Left foot gangrene status post 4th and 5th toe amputation. 2. Surgical ulceration, left foot. 3. Type 2 diabetes with hyperglycemia. PLAN: Awaiting culture and pathology results. Nurses to initiate t.i.d. dressing changes, irrigatio n with normal saline and application of gentamicin ointment. The patient is weightbearing as tolerat ed with use of postoperative shoe. May benefit from PT evaluation and short-term acute rehab placeme nt. Dictated By: NORMAN IVORY DPM RB/NTS Conf#: [id number] DID#: [id number] CC: YAZMIN PARKER DO; MARÍA BIANCHI MD; BERKLEY MENDEZ MD;*EndCC*
[2019-01-19] MEDS ORDERED: ACETAMINOPHEN 1000MG/100ML IV 100 ML IVPB PRN (15:00)
[2019-01-19] MEDS: HYDROCODONE/APAP (7.5/325) TAB PO PRN ×2 (15:17→21:26)
[2019-01-19] MEDS: ACETAMINOPHEN 325 MG TAB PO PRN (18:09)
[2019-01-19] MEDS ORDERED: INSULIN GLARGINE [LANTus] (100 UNITS/ML) SYG SC SCH (20:00)
[2019-01-19] MEDS: ATORVASTATIN 40 MG TAB PO SCH (20:16)
[2019-01-19] MEDS: APIXABAN 5 MG TABLET PO SCH (21:22)
[2019-01-20] VITALS (10 sets, daily range): BP systolic 109–143; BP diastolic 61–94; PULSE 55–124; RESP 16–18
[2019-01-20] MEDS: PIPER-TAZO 3.375 GM IV (PMX) 100 ML IVPB SCH ×2 (00:43→05:32)
[2019-01-20] MEDS: ACETAMINOPHEN 325 MG TAB PO PRN (02:13)
[2019-01-20] MEDS: ACCU-CHEK XX SCH (02:49)
--- NOTE | 2019-01-20 06:51 | CONS ---
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 pt is s/p L pop-plantar artery bypass and then s/p 4th toe amputation 5th toe and forefoot area of gangrene had not been demarcated cx from amputation surgery has GNR and GPC continue with vanco/zosyn 01/17 - cx did not grow MRSA, d/c vanco pseudomonas, proteus and enterococcus all sensitive to zosyn, continue with this pt awaits further surgery regarding 5th toe 01/19 - renal function is stable and a bit improved 5th toe was amputated and bone biopsy with cx was taken, await results continue with zosyn if biopsy is neg for osteo then would continue zosyn thru 01/26 but if osteo still present then continue thru 02/23/19 check ESR in a.m. 01/20 - cx from 4th toe has pseudomonas that is now resistant to zosyn d/c zosyn and start merrem await path to determine length of therapy, if osteo is present will add cipro to regimen to prevent further resistance developing 2) DM his HgbA1C is elevated 3) increase in creatinine 01/15 - pt has good urine output continue to monitor may need to adjust antibiotics if creatinine continues to worsen 01/17 - d/c vanco, continue with zosyn at present 01/19 - creatinine improved a bit ok to continue with zosyn Consultation Date/Type/Reason Admit Date/Time January 11, 2019 at 18:31 Initial Consult Date 01/12/19 Type of Consult ID Date/Time of Note DATE: 01/20/19 TIME: 06:50 24 HR Interval Summary Free Text/Dictation afebrile Exam/Review of Systems Exam Vitals Vital Signs Date Temp Pulse Resp B/P (MAP) Pulse Ox O2 O2 Flow FiO2 Time Delivery Rate 01/20/19 3.0 04:36 01/20/19 68 04:34 01/20/19 98.2 18 118/70 98 04:17 (86) 01/19/19 Nasal 19:56 Cannula Intake and Output 01/19/19 01/19/19 01/20/19 1515:00 23:00 07:00 IntakeIntake Total 750 ml 1100 ml 300 ml OutputOutput Total 850 ml 1200 ml BalanceBalance 750 ml 250 ml -900 ml Results Result Diagram: 01/19/19 0557 01/19/19 0557 Results 24hrs Laboratory Tests Test 01/19/19 08:05 01/19/19 11:48 01/19/19 17:24 01/19/19 20:14 Bedside Glucose 146 86 101 299 H Test 01/20/19 02:15 01/20/19 06:05 Bedside Glucose 151 White Blood Count Pending Red Blood Count Pending Hemoglobin Pending Hematocrit Pending Mean Corpuscular Volume Pending Mean Corpuscular Pending Hemoglobin Mean Corpuscular Pending Hemoglobin Concent Red Cell Distribution Pending Width Platelet Count Pending Mean Platelet Volume Pending Medications Medication Current Medications IV Flush (NS 3 ml) 3 ml PER PROTOCOL IV ; Start 01/11/19 at 20:30 Ondansetron HCl (Zofran Inj) 4 mg Q6H PRN IV NAUSEA/VOMITING; Start 01/11/19 at 20:30 Acetaminophen (Tylenol Tab) 650 mg Q6H PRN PO .PAIN 1-3 OR TEMP Last administered on 01/20/19at 02:13; Admin Dose 650 MG; Start 01/11/19 at 20:30 Docusate Sodium (Colace) 100 mg Q12H PRN PO .CONSTIPATION; Start 01/11/19 at 20:30 Bisacodyl (Dulcolax) 5 mg DAILY PRN PO .CONSTIPATION; Start 01/11/19 at 20:30 Piperacillin Sod/ Tazobactam Sod 100 ml @ 200 mls/hr Q6 IVPB Last administered on 01/20/19at 05:32; Admin Dose 200 MLS/HR; Start 01/12/19 at 08:00 Diagnostic Test (Pha) (Accu-Chek) 1 ea 02 XX Last administered on 01/20/19 02:49; Admin Dose 1 EA; Start 01/13/19 at 02:00 Miscellaneous Information 1 ea NOTE XX ; Start 01/12/19 at 11:00 Glucose (Glutose) 15 gm Q15M PRN PO DECREASED GLUCOSE; Start 01/12/19 at 11:00 Glucose (Glutose) 22.5 gm Q15M PRN PO DECREASED GLUCOSE; Start 01/12/19 at 11:00 Dextrose (D50w Syringe) 25 ml Q15M PRN IV DECREASED GLUCOSE; Start 01/12/19 at 11:00 Dextrose (D50w Syringe) 50 ml Q15M PRN IV DECREASED GLUCOSE; Start 01/12/19 at 11:00 Glucagon (Glucagen) 1 mg Q15M PRN IM DECREASED GLUCOSE; Start 01/12/19 at 11:00 Glucose (Glutose) 15 gm Q15M PRN BUCCAL DECREASED GLUCOSE; Start 01/12/19 at 11:00 Atorvastatin Calcium (Lipitor) 40 mg HS PO Last administered on 01/19/19 20:16; Admin Dose 40 MG; Start 01/12/19 at 21:00 Insulin Aspart (Novolog Insulin Pen) NOVOLOG *MODERATE* ALGORITHM WITH MEALS BEDTIME SC Last administered on 01/19/19 20:58; Admin Dose 3 UNIT; Start 12/17 09/04 at 07:35 Apixaban (Eliquis) 5 mg BID PO Last administered on 01/19/19 21:22; Admin Dose 5 MG; Start 01/14/19 at 09:00 Sodium Hypochlorite (Dakins Diluted (/40)) 1 applic DAILY TP Last administered on 01/19/19 08:11; Admin Dose 1 APPLIC; Start 01/14/19 at 13:00 Senna/Docusate Sodium (Senokot-S) 1 tab BID PO Last administered on 01/19/19 20:16; Admin Dose 1 TAB; Start 01/16/19 at 12:00 Naphazoline HCl/ Pheniramine Maleate (Naphcon A) 2 drop QID PRN BOTH EYES irritation Last administered on 01/18/19 20:12; Admin Dose 2 DROP; Start 01/16/19 at 18:00 Gentamicin Sulfate (Gentamicin 0.1% Oint) 1 applic TID TOP Last administered on 01/19/19 21:22; Admin Dose 1 APPLIC; Start 01/18/19 at 21:00 Acetaminophen/ Hydrocodone Bitart ([place] (7.5-325)) 1 tab Q6H PRN PO MODERATE PAIN LEVEL 4-6 Last administered on 01/19/19 21:26; Admin Dose 1 TAB; Start 01/19/19 at 11:00 Metoprolol Tartrate (Lopressor) 50 mg BID PO Last administered on 01/19/19 20:17; Admin Dose 50 MG; Start 01/19/19 at 21:00 Insulin Aspart (Novolog Insulin Pen) 8 unit WITH MEALS SC Last administered on 01/19/19 17:32; Admin Dose 8 UNIT; Start 01/19/19 at 17:55 Insulin Glargine (Lantus) 22 units DAILY@2000 SC Last administered on 01/19/19 20:58; Admin Dose 22 UNITS; Start 01/19/19 at 20:00 Amiodarone HCl (Cordarone) 200 mg BID PO Last administered on 01/19/19 20:17; Admin Dose 200 MG; Start 01/19/19 at 21:00 Acetaminophen 100 ml @ 400 mls/hr Q6H PRN IVPB severe pain 7-10; Start 01/19/19 at 15:00; Stop 01/21/19 at 14:59 PHANI MCCULLOUGH MD Jan 20, 2019 06:51
[2019-01-20] MEDS: INSULIN ASPART [NOVOLOG] 3 ML PEN SC SCH ×6 (07:55→17:20)
[2019-01-20] MEDS: AMIODARONE 200 MG TAB PO SCH (09:04)
[2019-01-20] MEDS: NAPHAZOLINE/PHENIRAMINE 15 ML OPH BOTH EYES PRN (09:04)
[2019-01-20] MEDS: APIXABAN 5 MG TABLET PO SCH (09:05)
[2019-01-20] MEDS: SENNA/DOCUSATE NA (8.6MG/50MG) TAB PO SCH (09:05)
[2019-01-20] MEDS: METOPROLOL 50 MG TAB PO SCH (09:05)
[2019-01-20] MEDS: GENTAMICIN 0.1% 15 GM OINT TOP SCH ×2 (09:05→14:28)
[2019-01-20] MEDS: DAKINS 0.0125%(1/40) 473 ML SOLUTION TP SCH (09:06)
--- NOTE | 2019-01-20 13:41 | CONS ---
Assessment/Plan Assessment/Plan Hospital Course (Demo Recall) Paroxysmal atrial fibrillation LVEF 50-55% Critical limb ischemia with gangrene s/p surgical revascularization 01/13/19 and debridement on 01/14/2019 Diabetes, uncontrolled Hypertension Dyslipidemia Peripheral arterial disease Patient with paroxysmal atrial fibrillation over the past 24 hours. Early in sinus rhythm Continue metoprolol and titrate as blood pressure and heart rate permits Continue amiodarone, decrease to daily after 1 week Continue anticoagulation as tolerated Consultation Date/Type/Reason Admit Date/Time January 11, 2019 at 18:31 Initial Consult Date 01/12/19 Type of Consult Cardiology Date/Time of Note DATE: 01/20/19 TIME: 13:39 24 HR Interval Summary Free Text/Dictation Patient seen and examined. Sleeping but arousable. Family bedside Exam/Review of Systems Vital Signs Vitals Vital Signs Date Temp Pulse Resp B/P (MAP) Pulse Ox O2 O2 Flow FiO2 Time Delivery Rate 01/20/19 64 12:00 01/20/19 98.4 18 109/74 90 10:59 (86) 01/20/19 Nasal 2.0 09:10 Cannula Intake and Output 01/19/19 01/19/19 01/20/19 1515:00 23:00 07:00 IntakeIntake Total 750 ml 1100 ml 300 ml OutputOutput Total 850 ml 1200 ml BalanceBalance 750 ml 250 ml -900 ml Exam Exam Sleeping but arousable, family at bedside, no apparent distress Head: normocephalic Respiratory: other (Coarse breath sounds bilaterally, no wheezing) Cardiovascular: regular rate and rhythm (S1-S2 heard) Gastrointestinal: soft, non-tender, bowel sounds Extremities: edema (Trace) Labs Result Diagram: 01/20/19 0601/20/19 06 Results 24hrs Laboratory Tests Test 01/19/19 17:24 01/19/19 20:14 01/20/19 02:15 01/20/19 06:05 Bedside Glucose 101 299 H 151 White Blood Count 9.9 Red Blood Count 3.37 L Hemoglobin 8.4 L Hematocrit 27.8 L Mean Corpuscular Volume 82.5 Mean Corpuscular 24.9 L Hemoglobin Mean Corpuscular 30.2 L Hemoglobin Concent Red Cell Distribution 15.4 H Width Platelet Count 369 Mean Platelet Volume 9.8 Immature Granulocytes % 0.600 H Neutrophils % 75.0 Lymphocytes % 13.2 L Monocytes % 8.7 Eosinophils % 1.9 Basophils % 0.6 Nucleated Red Blood 0.2 H Cells % Immature Granulocytes # 0.060 H Neutrophils # 7.4 Lymphocytes # 1.3 Monocytes # 0.9 Eosinophils # 0.2 Basophils # 0.1 Nucleated Red Blood 0.0 Cells # Erythrocyte 91 H Sedimentation Rate Sodium Level 140 Potassium Level 3.8 Chloride Level 103 Carbon Dioxide Level 27 Anion Gap 10 Blood Urea Nitrogen 25 H Creatinine 1.39 H Est Glomerular Filtrat 52 L Rate mL/min Glucose Level 123 Calcium Level 8.5 Test 01/20/19 08:01 01/20/19 11:41 Bedside Glucose 135 153 Medications Medications Current Medications IV Flush (NS 3 ml) 3 ml PER PROTOCOL IV ; Start 01/11/19 at 20:30 Ondansetron HCl (Zofran Inj) 4 mg Q6H PRN IV NAUSEA/VOMITING; Start 01/11/19 at 20:30 Acetaminophen (Tylenol Tab) 650 mg Q6H PRN PO .PAIN 1-3 OR TEMP Last administered on 01/20/19at 02:13; Admin Dose 650 MG; Start 01/11/19 at 20:30 Docusate Sodium (Colace) 100 mg Q12H PRN PO .CONSTIPATION; Start 01/11/19 at 20:30 Bisacodyl (Dulcolax) 5 mg DAILY PRN PO .CONSTIPATION; Start 01/11/19 at 20:30 Diagnostic Test (Pha) (Accu-Chek) 1 ea 02 XX Last administered on 01/20/19at 02:49; Admin Dose 1 EA; Start 01/13/19 at 02:00 Miscellaneous Information 1 ea NOTE XX ; Start 01/12/19 at 11:00 Glucose (Glutose) 15 gm Q15M PRN PO DECREASED GLUCOSE; Start 01/12/19 at 11:00 Glucose (Glutose) 22.5 gm Q15M PRN PO DECREASED GLUCOSE; Start 01/12/19 at 11:00 Dextrose (D50w Syringe) 25 ml Q15M PRN IV DECREASED GLUCOSE; Start 01/12/19 at 11:00 Dextrose (D50w Syringe) 50 ml Q15M PRN IV DECREASED GLUCOSE; Start 01/12/19 at 11:00 Glucagon (Glucagen) 1 mg Q15M PRN IM DECREASED GLUCOSE; Start 01/12/19 at 11:00 Glucose (Glutose) 15 gm Q15M PRN BUCCAL DECREASED GLUCOSE; Start 01/12/19 at 11:00 Atorvastatin Calcium (Lipitor) 40 mg HS PO Last administered on 01/19/19 20:16; Admin Dose 40 MG; Start 01/12/19 at 21:00 Insulin Aspart (Novolog Insulin Pen) NOVOLOG *MODERATE* ALGORITHM WITH MEALS BEDTIME SC Last administered on 01/20/19 11:44; Admin Dose 2 UNIT; Start 01/14/19 at 07:35 Apixaban (Eliquis) 5 mg BID PO Last administered on 01/20/19 09:05; Admin Dose 5 MG; Start 01/14/19 at 09:00 Sodium Hypochlorite (Dakins Diluted ()) 1 applic DAILY TP Last administered on 01/20/19 09:06; Admin Dose 1 APPLIC; Start 01/14/19 at 13:00 Senna/Docusate Sodium (Senokot-S) 1 tab BID PO Last administered on 01/20/19 09:05; Admin Dose 1 TAB; Start 01/16/19 at 12:00 Naphazoline HCl/ Pheniramine Maleate (Naphcon A) 2 drop QID PRN BOTH EYES i rritation Last administered on 01/20/19 09:04; Admin Dose 2 DROP; Start 01/16/19 at 18:00 Gentamicin Sulfate (Gentamicin 0.1% Oint) 1 applic TID TOP Last administered on 01/20/19 09:05; Admin Dose 1 APPLIC; Start 01/18/19 at 21:00 Acetaminophen/ Hydrocodone Bitart ([place] (7.5-325)) 1 tab Q6H PRN PO MODERATE PAIN LEVEL 4-6 Last administered on 01/19/19 21:26; Admin Dose 1 TAB; Start 01/19/19 at 11:00 Metoprolol Tartrate (Lopressor) 50 mg BID PO Last administered on 01/20/19 09:05; Admin Dose 50 MG; Start 01/19/19 at 21:00 Insulin Aspart (Novolog Insulin Pen) 8 unit WITH MEALS SC Last administered on 01/20/19 11:44; Admin Dose 8 UNIT; Start 01/19/19 at 17:55 Insulin Glargine (Lantus) 22 units DAILY@2000 SC Last administered on 01/19/19at 20:58; Admin Dose 22 UNITS; Start 01/19/19 at 20:00 Amiodarone HCl (Cordarone) 200 mg BID PO Last administered on 01/20/19at 09:04; Admin Dose 200 MG; Start 01/19/19 at 21:00 Acetaminophen 100 ml @ 400 mls/hr Q6H PRN IVPB severe pain 7-10; Start 01/19/19 at 15:00; Stop 01/21/19 at 14:59 Meropenem/Sodium Chloride 50 ml @ 100 mls/hr Q8 IVPB ; Start 01/20/19 at 14:00 Buddy Otto DO Jan 20, 2019 13:41
[2019-01-20] MEDS ORDERED: MEROPENEM 1 GM/50ML(PMX) 50 ML IVPB SCH (14:00)
[2019-01-20] MEDS: HYDROCODONE/APAP (7.5/325) TAB PO PRN ×2 (17:00→17:59)
--- NOTE | 2019-01-20 22:58 | QN ---
Documentation Comment Progress note Date : 01/19/19 S: no new issues, 5th toe amputated yesterday without incident O : Constitutional: alert, oriented x3 Head: atraumatic, normocephalic Neck: non-tender, supple Respiratory: clear to auscultation Cardiovascular: regular rate and rhythm Gastrointestinal: S/ NT / ND / +BS Extremities: L foot bandaged Assessment and plan: 63-year-old male who was sent to the emergency room from the vascular surgeon's office because of severe left fourth and fifth digit pain. Patient has no known severe peripheral arterial disease with gangrene of the left fourth digit. He has had angioplasty in the past which is reported to have failed. Patient was found to be in A. fib RVR upon arrival to the emergency room and is admitted and managed as follows: 1. Severe peripheral arterial disease -failed prior angioplasty -now status post lower extremity bypass January 13, 2019 2. Left lower extremity gangrene to fourth and fifth toes -Status post left fourth toe amputation on January 14, 2019 -Fifth toe amputation 01/18/19 -plan to resume Eliquis 3. Atrial fibrillation status post RVR but now with improved rate control -excellent control on amiodarone and BB -Eliquis to be resumed today 4. Left lower extremity diabetic ulcer and cellulitis -Cultures growing Pseudomonas, Proteus and enterococcus -f/u path, if no osteo, 2 weeks abx 5. Acute renal insufficiency, Vanco related? CKD? -Vancomycin discontinued -Creatinine levels trending down nicely -Currently off IV fluids 6. Diabetes mellitus, hemoglobin A1c 10.2 -titrate insulin as indicated for optimization 7. Chronic dyslipidemia on statin therapy Plan: -[facility], however family expressing concern about altered mentation and confusion. Patient does not seem confused to me, but will review concerns with family. Further interventions depend on course. Vital Signs Date Temp Pulse Resp B/P (MAP) Pulse Ox O2 O2 Flow FiO2 Time Delivery Rate 01/19/19 98.7 70 16 108/76 94 07:40 (87) 01/19/19 3.0 05:43 01/18/19 Nasal 20:00 Cannula Intake and Output 01/18/19 01/18/19 01/19/19 1515:00 23:00 07:00 IntakeIntake Total 100 ml 800 ml 400 ml OutputOutput Total 702 ml 1000 ml BalanceBalance 100 ml 98 ml -600 ml Constitutional: alert Eyes: nl sclera ENMT: mucosa pink and moist Respiratory: clear to auscultation Cardiovascular: regular rate and rhythm Gastrointestinal: soft, non-tender Extremities: other (L foot is bandaged) Results Result Diagram: 01/19/19 0557 01/19/19 0557 Results 24hrs Laboratory Tests Test 01/18/19 07:53 01/18/19 12:28 01/18/19 15:40 01/18/19 18:11 Bedside Glucose 194 207 158 155 Test 01/18/19 20:15 01/19/19 01:53 01/19/19 05:57 Bedside Glucose 213 161 White Blood Count 9.2 Red Blood Count 3.20 L Hemoglobin 8.1 L Hematocrit 26.5 L Mean Corpuscular Volume 82.8 Mean Corpuscular 25.3 L Hemoglobin Mean Corpuscular 30.6 L Hemoglobin Concent Red Cell Distribution 14.9 H Width Platelet Count 351 Mean Platelet Volume 9.5 Immature Granulocytes % 0.500 H Neutrophils % 66.6 Lymphocytes % 14.3 L Monocytes % 12.5 H Eosinophils % 5.3 Basophils % 0.8 Nucleated Red Blood 0.2 H Cells % Immature Granulocytes # 0.050 H Neutrophils # 6.1 Lymphocytes # 1.3 Monocytes # 1.2 H Eosinophils # 0.5 Basophils # 0.1 Nucleated Red Blood 0.0 Cells # Sodium Level 139 Potassium Level 3.7 Chloride Level 103 Carbon Dioxide Level 27 Anion Gap 9 Blood Urea Nitrogen 23 H Creatinine 1.36 H Est Glomerular Filtrat 53 L Rate mL/min Glucose Level 139 Calcium Level 8.6 Phosphorus Level 3.8 Magnesium Level 1.9 Medications Medication Current Medications Morphine Sulfate (morphine) 4 mg Q3 PRN IV severe pain Last administered on 01/19/19at 02:03; Admin Dose 4 MG; Start 01/11/19 at 19:00 IV Flush (NS 3 ml) 3 ml PER PROTOCOL IV ; Start 01/11/19 at 20:30 Ondansetron HCl (Zofran Inj) 4 mg Q6H PRN IV NAUSEA/VOMITING; Start 01/11/19 at 20:30 Acetaminophen (Tylenol Tab) 650 mg Q6H PRN PO .PAIN 1-3 OR TEMP Last administered on 01/16/19at 20:37; Admin Dose 650 MG; Start 01/11/19 at 20:30 Docusate Sodium (Colace) 100 mg Q12H PRN PO .CONSTIPATION; Start 01/11/19 at 20:30 Bisacodyl (Dulcolax) 5 mg DAILY PRN PO .CONSTIPATION; Start 01/11/19 at 20:30 Furosemide (Lasix) 20 mg DAILY IV Last administered on 01/17/19at 08:39; Admin Dose 20 MG; Start 01/12/19 at 09:00 Hydromorphone HCl (Dilaudid) 1 mg Q4H PRN IV SEVERE PAIN LEVEL 7-10 Last admini stered on 01/19/19at 04:04; Admin Dose 1 MG; Start 01/11/19 at 22:30 Piperacillin Sod/ Tazobactam Sod 100 ml @ 200 mls/hr Q6 IVPB Last administered on 01/19/19 05:30; Admin Dose 200 MLS/HR; Start 01/12/19 at 08:00 Diagnostic Test (Pha) (Accu-Chek) 1 ea 02 XX Last administered on 01/19/19at 02:07; Admin Dose 1 EA; Start 01/13/19 at 02:00 Morphine Sulfate (Ms Contin (Er)) 15 mg BID PO Last administered on 01/18/19at 20:07; Admin Dose 15 MG; Start 01/12/19 at 11:00 Miscellaneous Information 1 ea NOTE XX ; Start 01/12/19 at 11:00 Glucose (Glutose) 15 gm Q15M PRN PO DECREASED GLUCOSE; Start 01/12/19 at 11:00 Glucose (Glutose) 22.5 gm Q15M PRN PO DECREASED GLUCOSE; Start 01/12/19 at 11:00 Dextrose (D50w Syringe) 25 ml Q15M PRN IV DECREASED GLUCOSE; Start 01/12/19 at 11:00 Dextrose (D50w Syringe) 50 ml Q15M PRN IV DECREASED GLUCOSE; Start 01/12/19 at 11:00 Glucagon (Glucagen) 1 mg Q15M PRN IM DECREASED GLUCOSE; Start 01/12/19 at 11:00 Glucose (Glutose) 15 gm Q15M PRN BUCCAL DECREASED GLUCOSE; Start 01/12/19 at 11:00 Atorvastatin Calcium (Lipitor) 40 mg HS PO Last administered on 01/18/19 20:09; Admin Dose 40 MG; Start 01/12/19 at 21:00 Insulin Aspart (Novolog Insulin Pen) NOVOLOG *MODERATE* ALGORITHM WITH MEALS BEDTIME SC Last administered on 01/18/19 21:24; Admin Dose 1 UNIT; Start 01/14/19 at 07:35 Apixaban (Eliquis) 5 mg BID PO Last administered on 01/17/19 08:39; Admin Dose 5 MG; Start 01/14/19 at 09:00; Status Hold Sodium Hypochlorite (Dakins Diluted ()) 1 applic DAILY TP Last administered on 01/18/19 08:52; Admin Dose 1 APPLIC; Start 01/14/19 at 13:00 Amiodarone HCl (Cordarone) 400 mg BID PO Last administered on 01/18/19 20:09; Admin Dose 400 MG; Start 01/15/19 at 10:30 Senna/Docusate Sodium (Senokot-S) 1 tab BID PO Last administered on 01/18/19 20:07; Admin Dose 1 TAB; Start 01/16/19 at 12:00 Insulin Aspart (Novolog Insulin Pen) 10 unit WITH MEALS SC Last administered on 01/18/19 07:58; Admin Dose 10 UNIT; Start 01/16/19 at 17:55 Naphazoline HCl/ Pheniramine Maleate (Naphcon A) 2 drop QID PRN BOTH EYES irritation Last administered on 01/18/19 20:12; Admin Dose 2 DROP; Start 01/16/19 at 18:00 Metoprolol Tartrate (Lopressor) 50 mg Q8 PO Last administered on 01/19/19 05:30; Admin Dose 50 MG; Start 01/18/19 at 14:00 Insulin Glargine (Lantus) 28 units DAILY@2000 SC Last administered on 01/18/19 21:24; Admin Dose 28 UNITS; Start 01/18/19 at 20:00 Lactated Ringer's 1,000 ml @ 100 mls/hr Q10H IV Last administered on 01/19/19 04:04; Admin Dose 100 MLS/HR; Start 01/18/19 at 17:22 Gentamicin Sulfate (Gentamicin 0.1% Oint) 1 applic TID TOP ; Start 01/18/19 at 21:00 BERKLEY MENDEZ Jan 20, 2019 22:58
--- NOTE | 2019-01-20 23:17 | EN ---
Date/Time of Note Date/Time of Note DATE: 01/20/19 TIME: 22:58 Event Note Medicine Medicine Event Note Discharge Summary Admission/Discharge Info Admit Date/Time Discharge Date/Time January 20, 2019 Discharge Diagnosis 63-year-old male who was sent to the emergency room from the vascular surgeon's office because of severe left fourth and fifth digit pain. Patient has no known severe peripheral arterial disease with gangrene of the left fourth digit. He has had angioplasty in the past which is reported to have failed. Patient was found to be in A. fib RVR upon arrival to the emergency room and is admitted and managed as follows: 1. Severe peripheral arterial disease -failed prior angioplasty -now status post left lower extremity bypass January 13, 2019 2. Left lower extremity gangrene to fourth and fifth toes -Status post left fourth toe amputation on January 14, 2019 -Fifth toe amputation 01/18/19 -plan to resume Eliquis 3. Atrial fibrillation status post RVR but now with improved rate control -excellent control on amiodarone and BB -Eliquis to be resumed today 4. Left lower extremity diabetic ulcer and cellulitis -Cultures growing Pseudomonas, Proteus and enterococcus -f/u path, if no osteo, 2 weeks abx 5. Acute renal insufficiency, Vanco related? CKD? -Vancomycin discontinued -Creatinine levels trending down nicely -Currently off IV fluids 6. Diabetes mellitus, hemoglobin A1c 10.2 -titrate insulin as indicated for optimization 7. 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 Patient also on eliquis Patient Condition: Stable Consults Podiatry: Karishma Gonzalez Vascular surgery: Yeison Gordon Cardiology: Buddy Otto Infectious disease: [place] Hospital Course Full details are available in the chart for review , and summary the vascular surgeon had since this patient to the emergency room for admission because of known peripheral arterial disease and gangrenous fourth toe with significant lower extremity pain. The patient had had a prior angioplasty but this was determined to have failed and so he was admitted for Popliteal to common plantar artery bypass in the left side. This procedure was done January 13, 2019 and patient tolerated it very well. On January 14, 2019 he was again taken back to the operating room where he had his fourth toe on the left foot amputated for gangrene. Cultures from chronic lower extremity ulcers were also obtained and grew out multiple organisms including pseudomonas aeruginosa, Setia marcescens and enterococcus species. The patient was diagnosed with new atrial fibrillation while in-house and was seen by cardiology and managed accordingly as well. Also he developed a mild renal insufficiency that was thought to be related to vancomycin: This has also improved. The patient's diabetic control was suboptimal as evidenced by hemoglobin A1c of greater than 10 and he was educated on his regimen adjusted. Subsequently the pediatric oncology nurse decided to take him back for persistent gangrenous changes and amputated his fifth toe as well this was done on January 18, 2019. Pathology was negative on the fourth toe for osteomyelitis and so ID final recommendations for now to treat for 2 weeks, but if there is osteo patient will require 6 weeks. Patient had episodes of confusion that concern the family and so he had a CT of the brain that showed a small basal ganglia CVA of indeterminate age. However his narcotics were all stopped with improvement in his cognition. When he initially presented he was on aspirin and Plavix for unclear reason, but at this time as he has been started on apixaban for atrial fibrillation, he will be resumed only on low-dose aspirin and high-dose statin. All other comorbidities were also aggressively managed as per Med records. See chart for details Patient at this time has been evaluated and examined in detail and is assessed to be in stable condition and ready for discharge to SNF for continued mgt. . Discharge Meds For complete list, please see medication reconciliation Dispositon: SNF Follow-up Plan The patient is being discharged to senior care facility for continued rehab. He will be assigned a primary care doctor at the SNF. Recommended diet Carb controlled low cholesterol, low Fat Recommended activity: As tolerated Time spent on discharge: > 30 minutes BERKLEY MENDEZ Jan 20, 2019 23:08
== END 2019-01-20 18:51 | DRG 253 ==
LOC: E/R 16:45 → 2NE 18:31 → ICU 21:44 → 6WM 23:08 → ICU 01-13 12:10 → TEL 01-15 17:23
PROVIDERS: ADMIT Family Medicine; ATTEND Family Medicine
PROC: 06BQ4ZZ Excision of Left Saphenous Vein, Percutaneous Endoscopic Approach (ICD-10-PCS; 2019-01-13)
PROC: 041N09P Bypass Left Popliteal Artery to Foot Artery with Autologous Venous Tissue, Open Approach (ICD-10-PCS; principal; 2019-01-13 07:30)
PROC: 0Y6W0Z0 Detachment at Left 4th Toe, Complete, Open Approach (ICD-10-PCS; 2019-01-14)
PROC: 0Y6Y0Z0 Detachment at Left 5th Toe, Complete, Open Approach (ICD-10-PCS; 2019-01-18)
PROC: 0QBP0ZZ Excision of Left Metatarsal, Open Approach (ICD-10-PCS; 2019-01-18)
DX: E11.52 Type 2 diabetes mellitus with diabetic peripheral angiopathy with gangrene (principal); I96 Gangrene, not elsewhere classified; M86.9 Osteomyelitis, unspecified; I50.30 Unspecified diastolic (congestive) heart failure; N17.9 Acute kidney failure, unspecified; L03.116 Cellulitis of left lower limb; I70.222 Atherosclerosis of native arteries of extremities with rest pain, left leg; E11.42 Type 2 diabetes mellitus with diabetic polyneuropathy; E11.621 Type 2 diabetes mellitus with foot ulcer; L97.529 Non-pressure chronic ulcer of other part of left foot with unspecified severity; E11.65 Type 2 diabetes mellitus with hyperglycemia; I11.0 Hypertensive heart disease with heart failure; I48.91 Unspecified atrial fibrillation; D50.9 Iron deficiency anemia, unspecified; E87.70 Fluid overload, unspecified; E78.5 Hyperlipidemia, unspecified; B96.5 Pseudomonas (aeruginosa) (mallei) (pseudomallei) as the cause of diseases classified elsewhere; B95.2 Enterococcus as the cause of diseases classified elsewhere; B96.4 Proteus (mirabilis) (morganii) as the cause of diseases classified elsewhere; Z98.62 Peripheral vascular angioplasty status; Z79.4 Long term (current) use of insulin
CPT/HCPCS: 70450; 71045; 76775; 80048; 80053; 80061; 80069; 80202; 82550; 82553; 82728; 82962; 83036; 83540; 83735; 83880; 84100; 84145; 84443; 84484; 85014; 85018; 85025; 85335; 85610; 85651; 85730; 86850; 86900; 86901; 87070; 87075; 87081; 87102; 87116; 88305; 88311; 93005; 93306; 93922; 93970; 97110; 97162; 97164; 97530; J0282; J0690; J1170; J1644; J1650; J1815; J1940; J2185; J2250; J2270; J2370; J2405; J2543; J2710; J2765; J2916; J3010; J3370; J3475; J7030; J7040; J7042; J7050; J7060; J7120